=== PATIENT | female | born 1965 | race Caucasian/White ===

== ENCOUNTER 2024-04-02 13:28 | Outpatient (OUT) | payer MEDICARE, MEDICAID, SELFPAY ==
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
== END 2024-04-02 13:29 ==
PROVIDERS: PCP Family Medicine; Visit Provider Anesthesiology Pain Medicine
DX: M25.551 Pain in right hip (principal); M54.50 Low back pain, unspecified
CPT/HCPCS: G0463

== ENCOUNTER 2024-05-14 12:44 | Outpatient (OUT) | payer MEDICARE, MEDICAID, SELFPAY ==
--- NOTE | 2024-05-14 | CONS_ITS ---
CONSULTATION DATE: 05/14/2024 TO: Brooke Elizalde M.D. CHIEF COMPLAINT: Includes severe lower back pain, leg pain. HISTORY: She rates the pain an 8/10 for the constant, sharp in character, burning component. Increased with activities such as standing, walking, performing transitioning maneuvers. She reports she has been having progressive tingling and weakness of her right lower extremity. MEDICATION: She has been on ibuprofen for at least the last six months, 800 mg t.i.d. to q.i.d., and she reports she has had only marginal relief with the same. Other medication includes baclofen 10 mg b.i.d., Zonegran 50 mg at h.s. Her LENY on today?s visit is 56%. She was seen in an emergency room visit for an anxiety issue as well as for evaluation of possible blood clots in the lower extremity. EXAM: Her examination is notable for patient having hypoesthesia along the right L4 dermatome, weakness in the right quadriceps/anterior tibialis, depressed right patella reflex. Straight leg raise was negative. No signs consistent with myelopathy involving the lower extremities. She did have hypoesthesia in a stocking type distribution to the junction of the upper one- third and the lower two-thirds of her calf bilaterally. IMPRESSION: Our impression is patient appears to have chronic pain secondary to spinal stenosis at L3-4. RECOMMENDATIONS: I recommend she increase the Zonegran 50 mg dose, two at bedtime. Proceed with an L3-4 steroid injection for suggested progressive pain as well as weakness to the right lower extremity and numbness. I have asked her continue with baclofen and encouraged her to pursue aquatic therapy. As part of providing excellent, safe, comprehensive care, the following was completed at our patient's visit: 1. A medication reconciliation and review to ensure accurate knowledge of current/active medications, including asking our patients to inform us about any jizc-[id number]-[id number] medications or herbal remedies/nutritional supplements/alternative remedies. 2. A review to specifically ensure our patients have had annual screening for: elevated body mass index (BMI, see intake chart for exact total), tobacco use, screening for depression, and screening for unhealthy alcohol use. When screening is concerning, patients are provided with education and the specific recommendation to discuss the concerning health issue and treatment options with their primary care provider. HELEN
--- OUTSIDE RECORDS SUMMARY | 2024-05-14 12:58 | XMS_ITS | CCD ---
Author Organization [facility] Care Team Providers [employer] Underwriter Name Role Phone VICKIE HART Unavailable Unavailable VICKIE HART Unavailable Unavailable BROOKE ELIZALDE Unavailable Unavailabl Brooke Garcia Attending Unavailable Brooke Elizalde Primary Care Unavailable Brooke Elizalde Primary Care Unavailable Brooke ELIZALDE Primary Care Physician [phone] Julio César Srinivasan Unavailable Alexus Rodriguez Unavailable DR JAZMIN MENDOZA Attending Unavailable KELLY, DR WU Consulting Unavailable KELLY, DR WU Admitting Unavailable Brooke ELIZALDE Admitting Unavailabl e Brooke ELIZALDE Attending Unavailabl e Brooke ELIZALDE Referring Unavailabl e THADDEUSBrooke GARCIA Attending Unavailabl e THADDEUSBrooke GARCIA Attending Unavailabl e THADDEUSBrooke Attending Unavailabl e THADDEUSBrooke GARCIA Attending Unavailabl e THADDEUSBrooke GARCIA Attending Unavailabl e Yessenia Mcdonough Attending Unavailable MD ADSH STAPLETON Admitting Unavailabl MD DASH Leon Attending Unavailabl e THADDEUSBrooke GARCIA Admitting Unavailabl MD DASH Leon Consulting Unavailabl e Brooke ELIZALDE Attending UnavailJean Youngblood Attending Unavailable Jean Huang. Attending Unavailable Jean Huang. Attending Unavailable Brooke ELIZALDE Admitting Unavailabl e THADDEUSBrooke GARCIA Attending Unavailabl e Brooke ELIZALDE Referring Unavailabl EL Rendon Attending Unavailable FRANCISCO J SCOTT Attending Unavailable EL ZARATE Attending Unavailable Brooke ELIZALDE Admitting Unavailabl e THADDEUSBrooke GARCIA Attending Unavailabl e THADDEUSBrooke GARCIA Referring Unavailabl e Allergies Allergy Classification Reported Allergen(s) Allergy Type Date of Onset Reaction(s) Facility (20 sources) Penicillins; Translations: [penicillins] Propensity to adverse reactions (disorder) 3 Eruption (morphologic abnormality) [facility] (20 sources) Etodolac; Translations: [etodolac] Drug Allergy Swelling (finding) [facility] Comment on above: swelling in hands an d feet swelling in hands an d feet (20 sources) predniSONE; Translations: [prednisone] Drug Allergy Spasticity (finding) [facility] (5 sources) Penicillins (Antibiotic) Propensity to adverse reactions [employer] Other (1 source) Etodolac; Translations: [Lodine] Drug Allergy [facility] Medications Current Medications Medication Drug Class(es) Dates Sig (Normalized) Sig (Original) 0.5 ML tirzepatide 10 MG/ML Auto-Injector [Mounjaro] (4 sources) Start: 02-16-2024 inject 5 mg by subcutaneous injection every week Mounjaro 5 mg/0.5 mL subcutaneous solution 5 mg, SubCutaneous, qWeek, # 4 EA, Refills(s) 3, Pharmacy: [facility], 168, cm, 02/16/24 13:13:00 EDT, Height/Length Dosing, 137.2, kg, 02/16/24 13:13:00 EDT, Weight Dosing Start Date: 02/16/24 Status: Ordered acetaminophen 325 mg / HYDROcodone bitartrate 5 mg oral tablet (2 sources) Opioid Agonist Start: 2023 End: 06-08-2023 take 1 tablet by mouth every six hours for pain Vanderbilt 325 mg-5 mg oral tablet 1 tab(s), Oral, q6hr for pain for 3 day(s), 12 tab(s), Refill(s) 0, [facility], 168, cm, 06/05/23 15:25:00 EDT, Height/Length Dosing, 143.3, kg, 06/05/23 15:25:00 EDT, Weight Dosing Start Date: 06/05/23 Stop Date: 06/08/23 Status: Ordered Start: 03-29-2022 End: 04-01-2022 take 1 tablet by mouth every six hours for pain Vanderbilt 325 mg-5 mg oral tablet 1 tab(s), Oral, q6hr for pain for 3 day(s), 10 tab(s), Refill(s) 0, [facility], 170, cm, 03/29/22 10:42:00 EDT, Height/Length Dosing, 127, kg, 03/29/22 10:42:00 EDT, Weight Dosing Start Date: 03/29/22 Stop Date: 04/01/22 Status: Ordered acetaminophen 325 mg / oxyCODONE hydrochloride 5 mg oral tablet (2 sources) Opioid Agonist Start: 05-07-2024 End: 05-10-2024 take 1 tablet by mouth every six hours as needed for pain Percocet 5 mg-325 mg oral tablet 1 tab(s), Oral, q6hr as needed for pain for 3 day(s), 15 tab(s), Refill(s) 0, [facility], 170.1, cm, 05/07/24 4:57:00 EDT, Height/Length Dosing, 140, kg, 05/07/24 4:57:00 EDT, Weight Dosing Start Date: 05/07/24 Stop Date: 05/10/24 Status: Ordered Start: 2023 End: 06-07-2023 take 1 tablet by mouth every six hours for pain acetaminophen-oxycodone 325 mg-5 mg Tab 1 tab(s), Oral, q6hr for pain for 2 day(s), 10 tab(s), Refill(s) 0, [facility], 168, cm, 06/05/23 15:25:00 EDT, Height/Length Dosing, 143.3, kg, 06/05/23 15:25:00 EDT, Weight Dosing Start Date: 06/05/23 Stop Date: 06/07/23 Status: Ordered adalimumab (3 sources) Tumor Necrosis Factor Adolfo Start: 04-17-2019 Humira Injection See Instructions, Every week, provided per Dermatology for psorosis, Refills(s) 0 Start Date: 04/17/19 Status: Ordered Humira Active Albuterol (5 sources) beta2-Adrenergic Agonist Ventoli n HFA Active Anoro Ellipta (5 sources) Anoro Ellipta Ac tive Anoro Ellipta 62.5 mcg-25 mcg inhalation powder (20 sources) Start: 08-04-2023 Anoro Ellipta 62.5 mcg-25 mcg inhalation powder 1 inh, Inhalation, Daily, 1 EA, Refill(s) 12, [facility], 168, cm, 08/04/23 13:13:00 EDT, Height/Length Dosing, 137.9, kg, 08/04/23 13:13:00 EDT, Weight Dosing Start Date: 08/04/23 Status: Ordered Start: 02-09-2021 Anoro Ellipta 62.5 mcg-25 mcg inhalation powder 1 inh, Inhalation, Daily, 1 EA, Refill(s) 12, [facility], 167, cm, 12/02/20 10:32:00 EST, Height/Length Dosing, 132.2, kg, 12/02/20 10:32:00 EST, Weight Dosing Start Date: 02/09/21 Status: Ordered apremilast 30 mg oral tablet (3 sources) Start: 04-06-2022 Otezla 30 mg o ral tablet 60 tab(s), Refills(s) 0 Start Date: 04/06/22 Status: Ordered atorvastatin 40 mg oral tablet (20 sources) HMG-CoA Reductase Inhibitor Start: 08-04-2023 take 1 tablet by mouth once daily atorvastatin 40 mg Tab 40 mg = 1 tab(s), Oral, Daily, # 90 tab(s), Refills(s) 4, Pharmacy: [facility], 168, cm, 08/04/23 13:13:00 EDT, Height/Length Dosing, 137.9, kg, 08/04/23 13:13:00 EDT, Weight Dosing Start Date: 08/04/23 Status: Ordered Start: 11-23-2022 take 1 tablet by mare th once daily atorvastatin 40 mg Tab 40 mg = 1 tab(s), Oral, Daily, # 90 tab(s), Refills(s) 3, Pharmacy: [facility], 168.9, cm, 05/06/22 16:53:00 EDT, Height/Length Dosing, 133, kg, 05/06/22 16:53:00 EDT, Weight Dosing Start Date: 11/23/22 Status: Ordered Start: 06-09-2021 take 1 tablet by mare th once daily atorvastatin 40 mg Tab 40 mg = 1 tab(s), Oral, Daily, # 90 tab(s), Refills(s) 3, Pharmacy: [facility], 168, cm, 06/09/21 13:14:00 EDT, Height/Length Dosing, 133.2, kg, 06/09/21 13:14:00 EDT, Weight Dosing Start Date: 06/09/21 Status: Ordered Lipitor Active betamethasone 0.5 mg/ml / clotrimazole 10 mg/ml topical cream (12 sources) Azole Antifungal, Corticosteroid Start: 12-30-2022 apply 45 g topically every other week betamethasone-clotrimazole Top 0.05%-1% Crm 15 gram See Instructions, 45 gm, Refill(s) 5, Not to be used longer than 2 weeks, [facility], 169, cm, 12/30/22 14:28:00 EST, Height/Length Dosing, 134.6, kg, 12/30/22 14:28:00 EST, Weight Dosing Start Date: 12/30/22 Status: Ordered cephalexin 500 mg oral capsule (1 source) Cephalosporin Antibacterial Start: 2023 End: 06-12-2023 take 1 capsule by mouth every six hours Keflex 500 mg Cap 500 mg = 1 cap(s), Oral, q6hr, X 7 day(s), # 28 cap(s), Refills(s) 0, Pharmacy: [facility], 168, cm, 06/05/23 15:25:00 EDT, Height/Length Dosing, 143.3, kg, 06/05/23 15:25:00 EDT, Weight Dosing Start Date: 06/05/23 Stop Date: 06/12/23 Status: Ordered clindamycin 150 mg oral capsule (4 sources) Lincosamide Antibacterial Start: 10-20-2023 take 2 capsules by mouth three times daily clindamycin 150 mg Cap 300 mg = 2 cap(s), Oral, TID, # 42 cap(s), Refills(s) 0, Pharmacy: [facility], 168, cm, 08/04/23 13:13:00 EDT, Height/Length Dosing, 137.9, kg, 08/04/23 13:13:00 EDT, Weight Dosing Start Date: 10/20/23 Status: Ordered Start: 11-28-2022 End: 12-05-2022 take 1 capsule by mouth every six hours clindamycin 300 mg oral cap 300 mg = 1 cap(s), Oral, q6hr, X 7 day(s), # 28 cap(s), Refills(s) 0, Pharmacy: [facility], 169, cm, 11/28/22 15:42:00 EST, Height/Length Dosing, 130, kg, 11/28/22 15:42:00 EST, Weight Dosing Start Date: 11/28/22 Stop Date: 12/05/22 Status: Ordered doxycycline hyclate 100 mg oral capsule (2 sources) Tetracycline-class Drug Start: 01-27-2023 End: 02-06-2023 take 1 capsule by mouth twice daily doxycycline hyclate 100 mg Cap 100 mg = 1 cap(s), Oral, BID, X 10 day(s), # 20 cap(s), Refills(s) 0, Pharmacy: [facility], 169, cm, 12/30/22 14:28:00 EST, Height/Length Dosing, 134.6, kg, 12/30/22 14:28:00 EST, Weight Dosing Start Date: 01/27/23 Stop Date: 02/06/23 Status: Ordered Start: 03-29-2022 End: 04-05-2022 take 1 tablet by mouth twice daily doxycycline monohydrate 100 mg oral tablet 100 mg = 1 tab(s), Oral, BID, X 7 day(s), # 14 tab(s), Refills(s) 0, Pharmacy: [facility], 170, cm, 03/29/22 10:42:00 EDT, Height/Length Dosing, 127, kg, 03/29/22 10:42:00 EDT, Weight Dosing Start Date: 03/29/22 Stop Date: 04/05/22 Status: Ordered 0.5 ML dulaglutide 9 MG/ML Auto-Injector [TrMedArkive] (20 sources) GLP-1 Receptor Agonist Start: 05-10-2023 inject 4.5 mg by subcutaneous injection every week Trulicity Pen 4.5 mg/0.5 mL subcutaneous solution 4.5 mg, SubCutaneous, qWeek, # 12 EA, Refills(s) 3, Pharmacy: [facility], 168, cm, 04/19/23 13:52:00 EDT, Height/Length Dosing, 143.3, kg, 04/19/23 13:52:00 EDT, Weight Dosing Start Date: 05/10/23 Status: Ordered Start: 12-30-2022 inject 1.5 mg by sub cutaneous injection every week Trulicity Pen 1.5 mg/0.5 mL subcutaneous solution 1.5 mg, SubCutaneous, qWeek, # 13 EA, Refills(s) 3, Pharmacy: [facility], 169, cm, 12/30/22 14:28:00 EST, Height/Length Dosing, 134.6, kg, 12/30/22 14:28:00 EST, Weight Dosing Start Date: 12/30/22 Status: Ordered Start: 12-30-2022 inject 3 mg by subcu taneous injection every week Trulicity Pen 3 mg/0.5 mL subcutaneous solution 3 mg, SubCutaneous, qWeek, # 13 EA, Refills(s) 3, Pharmacy: [facility], 169, cm, 12/30/22 14:28:00 EST, Height/Length Dosing, 134.6, kg, 12/30/22 14:28:00 EST, Weight Dosing Start Date: 12/30/22 Status: Ordered Start: 11-23-2022 inject 4.5 mg by sub cutaneous injection every week Trulicity Pen 4.5 mg/0.5 mL subcutaneous solution 4.5 mg, SubCutaneous, qWeek, # 12 EA, Refills(s) 3, Pharmacy: [facility], 168.9, cm, 05/06/22 16:53:00 EDT, Height/Length Dosing, 133, kg, 05/06/22 16:53:00 EDT, Weight Dosing Start Date: 11/23/22 Status: Ordered Start: 12-21-2021 inject 4.5 mg by sub cutaneous injection every week Trulicity Pen 4.5 mg/0.5 mL subcutaneous solution 4.5 mg, SubCutaneous, qWeek, # 12 EA, Refills(s) 3, Pharmacy: [facility], 168, cm, 12/21/21 14:14:00 EST, Height/Length Dosing, 130, kg, 12/21/21 14:14:00 EST, Weight Dosing Start Date: 12/21/21 Status: Ordered Trulicity Active empagliflozin 10 mg oral tablet (5 sources) Sodium-Glucose Cotransporter 2 Inhibitor Start: 08-04-2023 take 1 tablet by mouth once daily in the morning Jardiance 10 mg oral tablet 10 mg = 1 tab(s), Oral, qAM, # 30 tab(s), Refills(s) 5, Pharmacy: [facility], 168, cm, 08/04/23 13:13:00 EDT, Height/Length Dosing, 137.9, kg, 08/04/23 13:13:00 EDT, Weight Dosing Start Date: 08/04/23 Status: Ordered famotidine 20 mg oral tablet (20 sources) Histamine-2 Receptor Antagonist Start: 05-29-2023 take 1 tablet by mouth twice daily as needed famotidine 20 mg Tab 20 mg = 1 tab(s), Oral, BID, PRN Dyspepsia, # 180 tab(s), Refills(s) 4, Pharmacy: [facility], 168, cm, 04/19/23 13:52:00 EDT, Height/Length Dosing, 143.3, kg, 04/19/23 13:52:00 EDT, Weight Dosing Start Date: 05/29/23 Status: Ordered Start: 11-23-2022 take 1 tablet by mare th twice daily as needed famotidine 20 mg Tab 20 mg = 1 tab(s), Oral, BID, PRN Dyspepsia, # 60 tab(s), Refills(s) 5, Pharmacy: [facility], 168.9, cm, 05/06/22 16:53:00 EDT, Height/Length Dosing, 133, kg, 05/06/22 16:53:00 EDT, Weight Dosing Start Date: 11/23/22 Status: Ordered Start: 06-09-2021 take 1 tablet by mare th twice daily as needed famotidine 20 mg Tab 20 mg = 1 tab(s), Oral, BID, PRN Dyspepsia, # 60 tab(s), Refills(s) 5, Pharmacy: [facility], 168, cm, 06/09/21 13:14:00 EDT, Height/Length Dosing, 133.2, kg, 06/09/21 13:14:00 EDT, Weight Dosing Start Date: 06/09/21 Status: Ordered take 1 tablet by mare th every eight hours Famotidine 20 MG 1 tab(s) Orally tid Active fluconazole 150 mg oral tablet (18 sources) Azole Antifungal Start: 02-16-2024 take 1 tablet by mouth once fluconazole 150 mg Tab 150 mg = 1 tab(s), Oral, Once, # 4 tab(s), Refills(s) 5, Pharmacy: [facility], 168, cm, 02/16/24 13:13:00 EDT, Height/Length Dosing, 137.2, kg, 02/16/24 13:13:00 EDT, Weight Dosing Start Date: 02/16/24 Status: Ordered Start: 12-08-2023 take 1 tablet by mouth once fl uconazole 150 mg Tab 150 mg = 1 tab(s), Oral, Once, # 1 tab(s), Refills(s) 0, Pharmacy: [facility], 168, cm, 11/20/23 13:30:00 EST, Height/Length Dosing, 133.9, kg, 11/20/23 13:30:00 EST, Weight Dosing Start Date: 12/08/23 Status: Ordered Start: 06-01-2021 Diflucan 150 m g Tab 150 mg = 1 tab(s), Oral, Monday, # 4 tab(s), Refills(s) 11, Pharmacy: [facility], 168.9, cm, 05/07/21 12:57:00 EDT, Height/Length Dosing, 133.4, kg, 05/07/21 12:57:00 EDT, Weight Dosing Start Date: 06/01/21 Status: Ordered Diflucan Active furosemide 20 mg oral tablet (20 sources) Loop Diuretic Start: 08-04-2023 take 1 tablet by mouth once daily Lasix 20 mg Tab 20 mg = 1 tab(s), Oral, Daily, # 90 tab(s), Refills(s) 4, Pharmacy: [facility], 168, cm, 08/04/23 13:13:00 EDT, Height/Length Dosing, 137.9, kg, 08/04/23 13:13:00 EDT, Weight Dosing Start Date: 08/04/23 Status: Ordered Start: 11-23-2022 take 1 tablet by mare th once daily Lasix 20 mg Tab 20 mg = 1 tab(s), Oral, Daily, # 90 tab(s), Refills(s) 3, Pharmacy: [facility], 168.9, cm, 05/06/22 16:53:00 EDT, Height/Length Dosing, 133, kg, 05/06/22 16:53:00 EDT, Weight Dosing Start Date: 11/23/22 Status: Ordered Start: 06-09-2021 take 1 tablet by [facility] once daily Lasix 20 mg Tab 20 mg = 1 tab(s), Oral, Daily, # 90 tab(s), Refills(s) 3, Pharmacy: [facility], 168, cm, 06/09/21 13:14:00 EDT, Height/Length Dosing, 133.2, kg, 06/09/21 13:14:00 EDT, Weight Dosing Start Date: 06/09/21 Status: Ordered 1 ml guselkumab 100 mg/ml auto-injector (9 sources) Interleukin-23 Antagonist Start: 08-04-2023 Tremfya One-Press 100 mg/mL subcutaneous solution Refills(s) 0 Start Date: 08/04/23 Status: Ordered hydrocortisone 25 mg/ml topical cream (5 sources) Corticosteroid Start: 12-08-2023 hydrocortisone Top 2.5% Crm 1 marylin, Topical, TID Itching, 30 gm, Refill(s) 1, [facility], 168, cm, 11/20/23 13:30:00 EST, Height/Length Dosing, 133.9, kg, 11/20/23 13:30:00 EST, Weight Dosing Start Date: 12/08/23 Status: Ordered ibuprofen 800 mg oral tablet (20 sources) Nonsteroidal Anti-inflammatory Drug Start: 02-16-2024 take 1 tablet by mouth three times daily as needed for pain ibuprofen 800 mg Tab 800 mg = 1 tab(s), Oral, TID, PRN as needed for pain, # 270 tab(s), Refills(s) 3, Pharmacy: [facility], 168, cm, 02/16/24 13:13:00 EDT, Height/Length Dosing, 137.2, kg, 02/16/24 13:13:00 EDT, Weight Dosing Start Date: 02/16/24 Status: Ordered Start: 03-14-2023 take 1 tablet by mare th three times daily as needed for pain ibuprofen 800 mg Tab 800 mg = 1 tab(s), Oral, TID, PRN as needed for pain, # 270 tab(s), Refills(s) 3, Pharmacy: [facility], 169, cm, 02/17/23 11:00:00 EDT, Height/Length Dosing, 134, kg, 02/17/23 11:00:00 EDT, Weight Dosing Start Date: 03/14/23 Status: Ordered Start: 06-09-2021 take 1 tablet by mare th three times daily as needed for pain ibuprofen 800 mg Tab 800 mg = 1 tab(s), Oral, TID, PRN as needed for pain, # 270 tab(s), Refills(s) 3, Pharmacy: [facility], 168, cm, 06/09/21 13:14:00 EDT, Height/Length Dosing, 133.2, kg, 06/09/21 13:14:00 EDT, Weight Dosing Start Date: 06/09/21 Status: Ordered Ibuprofen PRN Ac tive Ibuprofen Active 3 ml insulin aspart, human 100 unt/ml pen injector (20 sources) Insulin Analog Start: 10-04-2023 NovoLOG FlexPe n 100 units/mL injectable solution 18 unit(s), SubCutaneous, TIDAC, before a meal, # 18 EA, Refills(s) 4, Pharmacy: [facility], 168, cm, 08/04/23 13:13:00 EDT, Height/Length Dosing, 137.9, kg, 08/04/23 13:13:00 EDT, Weight Dosing Start Date: 10/04/23 Status: Ordered Start: 12-30-2022 NovoLOG FlexPe n 100 units/mL injectable solution 18 unit(s), SubCutaneous, TIDAC, before a meal, # 15 EA, Refills(s) 3, Pharmacy: [facility], 169, cm, 12/30/22 14:28:00 EST, Height/Length Dosing, 134.6, kg, 12/30/22 14:28:00 EST, Weight Dosing Start Date: 12/30/22 Status: Ordered Start: 05-06-2022 NovoLOG FlexPe n 100 units/mL injectable solution 18 unit(s), SubCutaneous, TIDAC, before a meal, # 15 EA, Refills(s) 3, Pharmacy: [facility], 168.9, cm, 05/06/22 16:53:00 EDT, Height/Length Dosing, 133, kg, 05/06/22 16:53:00 EDT, Weight Dosing Start Date: 05/06/22 Status: Ordered NovoLOG Active 3 ml insulin detemir 100 unt/ml pen injector (20 sources) Insulin Analog Start: 10-04-2023 Levemir FlexTo uch 100 units/mL subcutaneous solution 48 unit(s), SubCutaneous, Bedtime, # 15 EA, Refills(s) 4, Pharmacy: [facility], 168, cm, 08/04/23 13:13:00 EDT, Height/Length Dosing, 137.9, kg, 08/04/23 13:13:00 EDT, Weight Dosing Start Date: 10/04/23 Status: Ordered Start: 05-23-2023 Levemir FlexTo uch 100 units/mL subcutaneous solution 40 unit(s), SubCutaneous, Bedtime, # 12 EA, Refills(s) 4, Pharmacy: [facility], 168, cm, 04/19/23 13:52:00 EDT, Height/Length Dosing, 143.3, kg, 04/19/23 13:52:00 EDT, Weight Dosing Start Date: 05/23/23 Status: Ordered Start: 05-06-2022 Levemir FlexTo uch 100 units/mL subcutaneous solution 40 unit(s), SubCutaneous, Bedtime, # 12 EA, Refills(s) 3, Pharmacy: [facility], 168.9, cm, 05/06/22 16:53:00 EDT, Height/Length Dosing, 133, kg, 05/06/22 16:53:00 EDT, Weight Dosing Start Date: 05/06/22 Status: Ordered Start: 06-09-2021 Levemir FlexTo uch 100 units/mL subcutaneous solution 35 unit(s), SubCutaneous, Bedtime, # 6 EA, Refills(s) 3, Pharmacy: [facility], 168, cm, 06/09/21 13:14:00 EDT, Height/Length Dosing, 133.2, kg, 06/09/21 13:14:00 EDT, Weight Dosing Start Date: 06/09/21 Status: Ordered Levemir Active 1.5 ml insulin glargine 300 unt/ml pen injector (1 source) Insulin Analog Start: 04-02-2024 Toujeo SoloStar 300 units/mL subcutaneous solution 50 unit(s), SubCutaneous, Daily, # 5 EA, Refills(s) 11, Pharmacy: [facility], 168, cm, 03/28/24 13:20:00 EDT, Height/Length Dosing, 137.2, kg, 03/28/24 13:20:00 EDT, Weight Dosing Start Date: 04/02/24 Status: Ordered 1 ml ixekizumab 80 mg/ml auto-injector (8 sources) Interleukin-17A Antagonist Start: 12-30-2022 Taltz Autoinjector 80 mg/mL subcutaneous solution Refills(s) 0 Start Date: 12/30/22 Status: Ordered Methotrexate (4 sources) Folate Analog Metabolic Inhibitor Methotrexate Active naproxen 500 mg oral tablet (20 sources) Nonsteroidal Anti-inflammatory Drug Start: 04-28-2021 take 1 tablet by mouth twice daily Naprosyn 500 mg Tab 500 mg = 1 tab(s), Oral, BID, # 60 tab(s), Refills(s) 11, Pharmacy: [facility], 168.9, cm, 04/27/21 13:56:00 EDT, Height/Length Dosing, 133.4, kg, 04/27/21 13:56:00 EDT, Weight Dosing Start Date: 04/28/21 Status: Ordered Naproxen Active NovoLOG FlexPen 100 units/mL injectable solution (2 sources) Start: 06-09-2021 NovoLOG FlexPen 100 units/mL injectable solution 18 unit(s), SubCutaneous, TIDAC, before a meal, # 15 EA, Refills(s) 3, Pharmacy: [facility], 168, cm, 06/09/21 13:14:00 EDT, Height/Length Dosing, 133.2, kg, 06/09/21 13:14:00 EDT, Weight Dosing Start Date: 06/09/21 Status: Ordered nystatin 100 unt/mg topical powder (5 sources) Polyene Antifungal Start: 12-08-2023 nystatin Top 100,000 units/g Pwdr 1 marylin, Topical, TID, 60 gm, Refill(s) 0, do for 2 weeks, [facility], 168, cm, 11/20/23 13:30:00 EST, Height/Length Dosing, 133.9, kg, 11/20/23 13:30:00 EST, Weight Dosing Start Date: 12/08/23 Status: Ordered permanent handicap placard (4 sources) Start: 02-16-2024 permanent handicap placard permanent handicap placard, See Instructions, 2 EA, 5, for permanent medical condition, 5 years, needs 2 placards, Supply Start Date: 02/16/24 Status: Ordered Ventolin HFA 90 mcg/inh Aerosol (13 sources) Start: 02-09-2021 take 1 puff(s) by inhalation once for wheezing Ventolin HFA 90 mcg/inh Aerosol 1 puff(s), Inhalation, Once for wheezing, 1 EA, Refill(s) 11, [facility], 167, cm, 12/02/20 10:32:00 EST, Height/Length Dosing, 132.2, kg, 12/02/20 10:32:00 EST, Weight Dosing Start Date: 02/09/21 Status: Ordered vitamin B12 (10 sources) Vitamin B12 Start: 05-01-2019 Vitamin B12 See Instructions, 1 tab Oral off and on, Refills(s) 0, Prophylaxis Start Date: 05/01/19 Status: Ordered Vitamin B12 Acti ve Zinc (20 sources) Start: 04-10-2019 take 50 mg by mouth once daily Zinc 50 mg, Oral, Daily, only during winter months, Refills(s) 0, Prophylaxis Start Date: 04/10/19 Status: Ordered Zinc Active Completed/Discontinued Medications Medication Drug Class(es) Dates Sig (Normalized) Sig (Original) terconazole 4 mg/ml vaginal cream (3 sources) Azole Antifungal Start: 04-06-2022 terconazole 0.4% Vag Crm Refill(s) 0, 45 gm, INSERT 1 APPLICATORFUL VAGINALLY AT BEDTIME FOR 7 DAYS Start Date: 04/06/22 Status: Ordered Problems Active Problems Problem Classification Problem Date Documented Da te Episodic/Chronic Abdominal hernia (20 sources) Incisional hernia; Translations: [Recurrent inguinal hernia] Resolved: 9 01-10-2014 Episodic Abdominal pain (20 sources) Right upper quadrant pain; Translations: [Abdominal wall pain] Onset: 8 Resolved: 9 09-01-2020 Episodic Cancer of cervix (20 sources) Malignant tumor of cervix 11-01-2019 Chronic Cancer of cervix (20 sources) History of malignant neoplasm of cervix 11-11-2019 Episodic Chronic obstructive pulmonary disease and bronchiectasis (20 sources) Chronic obstructive lung disease; Translations: [Chronic obstructive pulmonary disease, unspecified] Onset: 2 11-11-2019 Chronic Diabetes mellitus with complications (20 sources) Neuropathy due to type 2 diabetes mellitus; Translations: [Hyperglycemia due to type 2 diabetes mellitus] Onset: 2 03-10-2021 Chronic Diabetes mellitus without complication (20 sources) Diabetes mellitus; Translations: [Type 2 diabetes mellitus] 11-01-2019 Chronic Comment on above: LInked per outpaiten t [facility] policy. Disorders of lipid metabolism (20 sources) Hypertriglyceridemia; Translations: [Mixed hyperlipidemia] Onset: 2 12-02-2020 Chronic Disorders of teeth and jaw (20 sources) Dental caries; Translations: [Infection of tooth] Onset: 3 03-10-2021 Episodic E Codes: Other specified and classifiable (1 source) Ring or other jewelry causing external constriction, initial encounter; Translations: [Exposure to inanimate mechanical force (finding)] Onset: 4 Episodic Endometriosis (20 sources) Endometriosis (clinical) 01-10-2014 Chronic Esophageal disorders (20 sources) Gastroesophageal reflux disease without esophagitis 12-21-2021 Chronic Glaucoma (20 sources) Open-angle glaucoma - borderline; Translations: [Open-angle glaucoma] 11-11-2019 Chronic Headache; including migraine (20 sources) [place] 11-01-2019 Chronic Hepatitis (4 sources) Nonalcoholic steatohepatitis; Translations: [Nonalcoholic steatohepatitis (DOBBS)] Chronic Immunity disorders (20 sources) Immunosuppression; Translations: [Immunodeficiency disorder] Onset: 4 12-21-2021 Chronic Immunizations and screening for infectious disease (1 source) Encounter for screening for human papillomavirus (HPV); Translations: [ENC SCREENING HUMAN PAPILLOMAVIRUS] Onset: 2 Episodic Menopausal disorders (12 sources) Primary ovarian failure; Translations: [Other primary ovarian failure] Onset: 2 Chronic Mood disorders (20 sources) Depressive disorder; Translations: [Reactive depression (situational)] Onset: 1 Resolved: 3 01-10-2014 Chronic Mycoses (20 sources) Candidiasis of skin; Translations: [Candidiasis of vagina] 05-27-2020 Episodic Other aftercare (2 sources) Long-term current use of insulin; Translations: [correction (current) use of insulin] Onset: 4 Episodic Other and unspecified benign neoplasm (20 sources) History of polyp of colon 04-27-2021 Episodic Other circulatory disease (20 sources) Elevated blood-pressure reading without diagnosis of hypertension 12-02-2020 Episodic Other connective tissue disease (2 sources) Pain in lower limb; Translations: [Pain in leg, unspecified] Onset: 2 Episodic Other connective tissue disease (19 sources) Hand pain; Translations: [Pain in left hand] Onset: 3 Episodic Other connective tissue disease (17 sources) Peripheral neuropathic pain 12-30-2022 Episodic Other connective tissue disease (1 source) Other symptoms and signs involving the musculoskeletal system; Translations: [Other symptoms and signs involving the musculoskeletal system] Onset: 4 Episodic Other female genital disorders (1 source) Other specified noninflammatory disorders of vagina; Translations: [OTH SPEC NONINFLAMMATORY D/O VAGINA] Onset: 2 Episodic Other gastrointestinal disorders (1 source) Ascites; Translations: [Other ascites] Onset: 3 Episodic Other inflammatory condition of skin (20 sources) Psoriasis; Translations: [Psoriasis, unspecified] Onset: 2 12-02-2020 Chronic Other injuries and conditions due to external causes (20 sources) At risk for falls 04-10-2019 Episodic Other liver diseases (4 sources) Steatosis of liver; Translations: [Fatty (change of) liver, not elsewhere classified] Chronic Other lower respiratory disease (20 sources) Dyspnea; Translations: [Dyspnea, unspecified] Onset: 4 09-01-2020 Episodic Other nervous system disorders (20 sources) Chronic pain syndrome 05-27-2020 Chronic Other nervous system disorders (20 sources) 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 Other nervous system disorders (1 source) Mononeuropathy of lower limb; Translations: [Unspecified mononeuropathy of bilateral lower limbs] Onset: 3 Chronic Other nervous system disorders (1 source) Polyneuropathy; Translations: [Polyneuropathy, unspecified] Onset: 4 Chronic Other nervous system disorders (1 source) Anesthesia of skin; Translations: [Anesthesia of skin] Onset: 3 Episodic Other nervous system disorders (17 sources) Numbness of finger 12-30-2022 Episodic Other non-traumatic joint disorders (20 sources) Knee pain 03-10-2021 Episodic Other non-traumatic joint disorders (9 sources) Multiple joint pain 08-04-2023 Episodic Other non-traumatic joint disorders (1 source) Pain of left wrist; Translations: [Pain in left wrist] Onset: 4 Episodic Other non-traumatic joint disorders (7 sources) Pain in wrist 11-20-2023 Episodic Other nutritional; endocrine; and metabolic disorders (20 sources) Body mass index 40+ - severely obese; Translations: [Body mass index (BMI) 45.0-49.9, adult] Onset: 2 04-06-2021 Chronic Other nutritional; endocrine; and metabolic disorders (20 sources) Morbid obesity; Translations: [Morbid (severe) obesity due to excess calories] Onset: 2 12-02-2020 Chronic Other screening for suspected conditions (not mental disorders or infectious disease) (20 sources) Mammography abnormal; Translations: [Other specified abnormal findings of blood chemistry] Onset: 2 Resolved: 2 04-08-2019 Episodic Other skin disorders (1 source) Disorder of skin pigmentation; Translations: [Disorder of pigmentation, unspecified] Onset: 4 Episodic Ovarian cyst (20 sources) Cyst of ovary 01-10-2014 Episodic Paralysis (7 sources) Monoparesis - leg 11-20-2023 Chronic Peripheral and visceral atherosclerosis (11 sources) Abdominal aortic atherosclerosis; Translations: [Atherosclerosis of aorta] Onset: 4 08-04-2023 Chronic Residual codes; unclassified (20 sources) Chronic back pain 01-10-2014 Episodic Residual codes; unclassified (20 sources) Family history of cancer of colon 04-27-2021 Episodic Residual codes; unclassified (20 sources) Family history of polyp of colon 04-27-2021 Episodic Residual codes; unclassified (13 sources) Swelling - edema - symptom 02-26-2020 Episodic Residual codes; unclassified (1 source) Edema; Translations: [Edema, unspecified] Onset: 2 Episodic Residual codes; unclassified (1 source) Patient encounter status; Translations: [Other specified health status] Onset: 3 Episodic Screening and history of mental health and substance abuse codes (20 sources) Tobacco use and exposure - finding; Translations: [Tobacco smoking behavior - finding] 03-10-2021 Chronic Screening and history of mental health and substance abuse codes (9 sources) Ex-smoker; Translations: [H/O: Disorder] Onset: 2 06-09-2021 Episodic Skin and subcutaneous tissue infections (2 sources) Cellulitis; Translations: [Cellulitis of unspecified part of limb] Onset: 2 Episodic Spondylosis; intervertebral disc disorders; other back problems (20 sources) Lumbar spondylosis with myelopathy; Translations: [Other spondylosis with myelopathy, lumbar region] Onset: 2 04-10-2019 Chronic Spondylosis; intervertebral disc disorders; other back problems (16 sources) Lumbar radiculopathy; Translations: [Radiculopathy, lumbar region] Onset: 4 Episodic Unclassified (2 sources) Right upper quadrant pain / R10.11(ICD-9) Onset: 8 Unclassified (20 sources) Drug therapy finding 04-10-2019 Unclassified (20 sources) Liver function test increased 12-21-2021 Unclassified (20 sources) Long-term current use of insulin 04-17-2019 Unclassified (20 sources) Patient encounter status 04-06-2021 Unclassified (2 sources) Suspected disease caused by 2019-nCoV 12-21-2021 Unclassified (17 sources) Non-smoker 12-30-2022 Unclassified (11 sources) Edema of abdomen 02-17-2023 Unclassified (8 sources) Financial insecurity; Translations: [Financial insecurity] Onset: Past or Other Problems Problem Classification Problem Date Documented Date Episodic/Chronic Substance-related disorders (20 sources) Smoker Resolved: 03-20-2015 08-14-2019 Chronic Comment on above: Added secondary to d ocumentation in Social History. Added secondary to d ocumentation in Social History. Unclassified (1 source) Exposure to 2019 novel coronavirus; Translations: [Contact with and (suspected) exposure to COVID19] Unclassified (3 sources) chronic knee pain( Confirmed ) 07-27-2010 Unclassified (19 sources) chronic knee pain 07-27-2010 Results Test Name Value Interpretation Reference Range Facil ity CHEMISTRYOrdered By: SYSTEM SYSTEM on 05-07-2024 Anion gap [Moles/Vol] 11 mmol/L Normal 6 - 16 mEq/L Remisol Chem Calcium [Mass/Vol] 8.3 mg/dL Low 8.9 - 11.1 mg/dL Remisol Chem Chloride [Moles/Vol] 104 mmol/L Normal 101 - 111 mmol/ L Remisol Chem CO2 [Moles/Vol] 25 mmol/L Normal 21 - 31 mmol/L Remis ol Chem Creatinine [Mass/Vol] 0.9 mg/dL Normal 0.5 - 1.3 mg/dL Remisol Chem eGFR 73 mL/min/1.73 m2 Normal >=59mL/min /1.73 m2 Remisol Chem Glucose [Mass/Vol] 130 mg/dL Normal 55 - 199 mg/dL Re misol Chem Potassium [Moles/Vol] 3.6 mmol/L Normal 3.5 - 5.3 mmol/L Remisol Chem Sodium [Moles/Vol] 136 mmol/L Normal 135 - 145 mmol/L Remisol Chem Troponin HS 4.00 pg/mL Low 10.10 - 27.10 pg/mL Remisol Chem Comment on above: Interpretive Data: T he 95% CI (Confidence Interval) PPV (Positive Predictive Value) for myocardial infarction in females is 38 pg/mL, in males 51 pg/mL. The results should be used in conjunction with clinical conditions of myocardial infarction. (Access High Sensitivity Troponin I Instructions For Use, [place], May 2018) Urea nitrogen [Mass/Vol] 13 mg/dL Normal 5 - 21 mg/dL Remisol Chem Urea nitrogen/Creatinine [Mass ratio] 14 mg/mg Normal 10 - 20 Remisol Chem CHEMISTRYOrdered By: Abdulkadir De La Torre on 05-07-2024 Natriuretic peptide B (Bld) [Mass/Vol] 24 pg/mL Normal 5 - 80 pg/mL [facility] HemeManSS HEMATOLOGYOrdered By: SYSTEM SYSTEM on 05-07-2024 Basophils/100 WBC (Bld) 0.7 % Normal 0.0 - 2.0 % Remisol Heme Basophils/Leukocytes Auto (Bld) [Pure # fraction] 0.1 E9/L Normal 0.0 - 0.2 E9/L Remisol Heme Eosinophils (Bld) [#/Vol] 0.1 E9/L Normal 0.0 - 0.5 E9/L Remisol Heme Eosinophils/100 WBC (Bld) 1.7 % Normal 0.0 - 8.0 % Remisol Heme Erythrocyte distribution width (RBC) [Ratio] 14.9 % High 10.9 - 14.2 % Remisol Heme Hematocrit (Bld) [Volume fraction] 33.6 % Low 34.0 - 46.0 % Remisol Heme Hemoglobin (Bld) [Mass/Vol] 11.7 g/dL Low 12.0 - 16.0 gm/dL Remisol Heme Lymphocytes (Bld) [#/Vol] 1.2 E9/L Normal 1.0 - 4.0 E9/L Remisol Heme Lymphocytes/100 WBC (Bld) 14.1 % Normal 14.0 - 50.0 % Remisol Heme MCH (RBC) [Entitic mass] 31.0 pg Normal 27.0 - 34.0 pg Remisol Heme MCHC (RBC) [Mass/Vol] 34.9 g/dL Normal 31.4 - 36.0 gm/dL Remisol Heme MCV (RBC) [Entitic vol] 89.0 fL Normal 80.0 - 100.0 fL Remisol Heme Monocytes (Bld) [#/Vol] 0.6 E9/L Normal 0.2 - 1.0 E9/L Remisol Heme Monocytes/100 WBC (Bld) 6.7 % Normal 4.0 - 14.0 % Remisol Heme Neutrophils (Bld) [#/Vol] 6.3 E9/L Normal 2.0 - 7.5 E9/L Remisol Heme Neutrophils/100 WBC (Bld) 76.8 % High 36.0 - 75.0 % Remisol Heme Platelet 292.0 E9/L Normal 150.0 - 500.0 E9/L Remisol Heme Platelet mean volume (Bld) [Entitic vol] 9.0 fL Normal 6.4 - 10.8 fL Remisol Heme RBC (Bld) [#/Vol] 3.8 E12/L Low 4.3 - 5.9 E12/L Re misol Heme WBC corrected for nucl RBC Auto (Bld) [#/Vol] 8.2 E9/L Normal 4.0 - 11.0 E9/L Remisol Heme Coding Summary.on 04-23-2024 Coding Summary. FHCRXnhq61ORs3cWq+PG hlY WQ+KO5QXQNtZ05vnAWqwW2v X0CJYDkMOhnsGXVIPKgHNpI wqtZvMO9krFSuGNCb IC8+WW7eTMPtNwytpSZrq8K 8jWZ1P52zua3tYEdceAX3EB KsFwGxlglat4nxcQz1RUztF mluOyBt KNDjgB79BHO6zH54Dl56iJP ziBFhc7ryjQa8SvVwZEMuEQ N3rNblOLxhd9QcJPIrM72fk EWwf0O8 IUWsyJvrcDRqAaUqmSR3zM0 jABdyoxapn4hzqfxaJka5ww 13hQXsy1E1nDN9E2XomqR4L GJvbGQg WkqjnKGPcG3yiwetz2atxif qNmJeZYSvUFe7LIz9RVPxgU rjBmSwNI13JKU1QXUavfXpD 2FsLWFs hQaiUfJ8k6T8Vt2HP0YRKfz mH2PFGXFGUQybmQZ+PC90cj 34H4OaFntbCft5LLUgCZV4r TE4xZ1w RWQyGDgqx4N9fRT1U4LnzeT xwk7rk7aiBADzRZfhB52ofQ Bpv7P0RQCffOR3EQHzpQjrA iBzaG93 Oyc+MHKdsJfps2CdGgmme1d nb4cdkTm7SdrrQNWadiBtwO vkUUN3g5ZfMh7xFRWooRO7y JI1dU1h LkEaDoQ0OCmfZ543SiBizWN lTwzzZ18hV7AicHA+PHRyPj f7ZLKloFqnMW0iB3YpXVTkh mctbGVm vFcmFT7tQEYozjgzYJFdeP0 xPTCnJ4j6ZcTqEdI4AJzoM5 IrRTHnfandRv45xO1mNqBbT bC9GKof T7KuapN5TGAogIPmDHwwWIZ 7X97qh1Q6CIOfAAOmOOE0kI O6hP1xfFafksaqoIUjgBuhq mVydGlj WKhxAKzrC497KRWdyXouYlR vZGluZyBEYXRlOiAgMDYvMj UvMjAyNDwvdGQ+VGPrCEC1z WxlPSAn xTArUObuGz4ftWimqPenMZ0 cGLDicdftUJQbbZ6kZWNobB RacJvyDD7hHHHcevqwn684B iAxMHB0 JIPizCYxC9SnmT6uMtYiXQZ jWINlM9EsfYXaQAxxH648IW loUhJ8QHEzivJaT7RwPTYvj WduOiB0 q3M4Ug6Bx1PcpannQ4EyhKL hWiScJqrdFXs6B0MuKqtwwK I+CB83OHFyLZ46GYa8HXZ2g WxlPSdi ORWwK5WpqL8iHmMjYAMcMAN kOyc+PHRhYmxlIHdpZHRoPS tjWTNtQoDkbEwdJK2gNz4zS GVyLWNv qHlsoQDcUpJqj7yyRFZpINv hNT0ixAjmQ8PtmJG9CLOcv5 j0Iq95G41cZ5AvgTZ+PGNvb KX3uLN0 yT5gCeRcWuX0CDfkD713ZmZ srNCkPofqb2yoc8qxePh4Ht F7GEVoyjXmeOpnWMV4q3DpG e17G99i IHdpZHRoPSIxNSUiIHZhbGl mjb4khF3sKd1+DBWdeUQ9jB Q5dL2xGtMxKwV3NXmhQ651R nRvcCIv Tqfda2nua5txpAp7AvJpNJJ amzOgjThyOKO6b3CpBd07T0 XgtJiwo7DpGod9cu21eZZyj 1P8gAH6 U0UuKKWrwavoxNHyrDgbJD4 vIZAguxwhWQWqoR2bMWDlJ6 w7IyGvJrF1IBwkH6FjvvJ8S GJvbGQg TAYewJBJfL0caiifr7tunro oZlRjNSArMEa7PFi0CMLlvR epUoShLXF7KoI3ROB9zDSxb J0ieCib xdjtlF1rXdr+UDV8hIPihIK PED6zFmxguDR+XYVkIKX7xK diUUvmERIqoJ3aPODmT1a9L iAwLjA1 AUhmH7MxbnF3WDSdsJZsAQO qiZKOdW8kluybb3hfqjsjIt AvEWXaIKi1DZm2GVHbiFyrK iBsZWZ0 ZmT2SOW6nVNerA2qeAqavsx lzL0kDwn+ZttfmCqwJSX2AY r4N2VyLej8AJVrrCoyTN3yd GFkZGlu Se8uoQrbiVqeAG6aOYDcbjj kq280OvEgo1wiLIHdhYDwXU mdWVX2L32pp4R9WNEhMATjY EK6aFC9 iS6asEvlpmcmpGTaeLzxxvU jpRkiNCipVRdqA674MYYtcX jwAtDzJUh0K7CmLbh1RVYpp HjaPA2k lXGdJJsoRq0vkHgmqMauDW9 wGMHhqnwat079HlJpg4tiJO AkhYKlWSznYQL2V40td2W2I CMwMDAw KHU2mHI5vE9pwCmsdzazmTE mdDsgdmVydGljYWwtYWxpZ2 81XARunBgbIlLnwAf6M0XsT wl7ZAXu jAbsHH9luAZyOWmpAl9akRm eyZirQQ4dQYGoabgdd672Eb Apd9kfBSDirIWvZRnbZIN2W 91zj4N3 CQScYFNdIQW1fNG2oE2uzGg nbjogbGVmdDsgdmVydGljYW ddMUuaZ701AZGmkZtrTeSut GllbnQg CCfvMBr4Y7EcTmqhlTM+PC9 3BVFvWL15pRXifCOxo1cslG p0WwKmDSLmUQV3bZjxAHvlj 3JkZXIt X73giOIwr5Z6MJQzvAjrkAJ aLxXlgFN4mE1yIIjuhirjf5 gufjbmZdaag6gkrt08fX59N 29sIHdp ZHRoPSIzMCUiIHZhbGlnbj0 oxI9zUp8+AERwlRJ3uSZ3iM 1dJMMwPyA4ZHebG162DdHjd CIvPjxj z7vrj1llyDn1WbB1ACKkhgZ mkEbeVBV0u6OaVt48I45uUI dpZHRoPSIyMCUiIHZhbGlnb z2yfC3q Ii8+JWBiwTS7eFE1qH6yNcX bAbP5WLucA711SgZpzNRjJo maH59pI4YikKP+KJDyPtz2O CBzdHls YT8nnZCbWHwbCr0aAFQ4TmG sMqUdKFvwA0SjAACbedrdwi acwIR9EFPxKQFshW49In6nh DogMTBw qGWEoV9qkkjkg0skbseiKiA nFWMyADd8JYv3JUAxwUysKo ToEHQ2WvH9JBR8hGWzrB0ml Glnbjog wG7gK0QaGXKayrcwAb72bU3 yFcQyJbJ0GUliTmw+Q1JPU1 RfELOZL2wAKa3DQTviVZ9MS SBCPC90 PO97pCJiw7J2zCI3N4SrVHC jntdwjgkyvJB9LCRbQYEtnO 88xZSwVXcnAt0zb9Z0t196R DAuMDUw uQ76Ra0toBakYPQzcXOLfO9 kylxzi6rgwxeqPvSjBFYtYA x9NWh2UUWmpFxuArFeNHE4H hQ3JHJ0 hEYsuB8zlPjkotdbpF8vEvq +OMfoZEziGUr4KBgodMA+PH TcVUC0pHtbNNruOCYlqN9tA AQzM9t1 MgGgJnF1IEeaI3OoTFLyjoo hKs67tR9dTgOxIoR6TVmiQ4 OndmP8VHAvfRZcFTpeRJJ7Q 34eb1W8 KBPaPYTiJEJ0lVC2jW0ikEv nbjogbGVmdDsgdmVydGljYW qfXGogH083OGUnfJdnAdZ7J FllYXJz VY02QS07gKRyd8Y2mCB2K4O kODIrkaetznyzlGC4YHOmWB MzkD84iVEmNAhnXu5fn1E0f 206IDAu CSNwnZ30Jo5ftSvhSZTffPJ CuT4qtazfa0tcutojKzUmXO PlWBn7IDm4JAPjlNulTaSlA MS3FqS5 QFZ7iHMwbE7vzSbvdherdU5 wOyc+KuAdVClzRH81FU19pO Wlg8X5wCT2E1QbMGUiaccwm mlnaHQ6 FCApUQPeaD58wEFbQTylOc9 ui0X9p771SOMsEJRdaY18Bc 3uhOitPPBnmDTCnE9kmulao 2xvcjog OwBgWFEmSUw3PAj5YUIlmRd nVjGmFFU9IgN6JRI3dEOnxP 5grOggardvlL9tVwm+T3V0c MY1xPBb dDwvdGQ+VK33jh91B3UsGbe uAbz4QBZwCNC7qCN7kS9oKD CcJPhbf8Y4zRZ3A9TebqDpv x8xk4tg GCKrNWqdS71shWXlp6D0EGL lkOE8JSDcbVyxUlOtfT20Fq c+DCYtgTjgc8EcBprlx0ber 0aahKq5 HrMkUJHngcLrcGywOBC2q8L yLt80U46jGOasSKPfUSPdUS IyCEAvdYohow7buY6yWv7+P GNvbCB3 lJJ4nT2bEwGlQyW5JKdgE19 8CbItpDIuFsofn9hge7srkS d7ZkWoJTVygwQzkSwrEUX2d 8AhJh76 C6SfqJfvc2IpJtm0vi84fCD xg7Q8fGW9T1FqSNUameoesH KegZmfTZ9iMQRkkmfbLHKua E9bDZHq E7f6McDzHyB1IHfpH8ZcshP 9VVFnuBJeKVOxjHQOxI6qky arm2kfubbtLmJmFYCiHVg3G Un8DFHx bBmdJrNuLPF9SgV1BXP5eXP wbN0weWsxpjesaI8tAup+UG i0c1byaHFaHQ8rtQE7BA47Y Y48eMMq w4K8jSE6A0HxFGMlxaliogp rrXK9YRKjBKOwmE79Fd0esX mrAs7eMXNnNYC3SOUotOZqA 7MzbL0i XiXkLGPoQIPrB2JfeZPeCVl zO256DGqsDjZ9QCZnlfGdS0 RrCRQzyPefIqK2u6H4Kk8BH A82GF54 GX86rJYhm6Y0tTP6L0XsDZC swbakiwwybHZ4SAEqIUIoxV 82Ho8hdYijLl9kPGPcGUD4G FRpbWVz J5VjzA8tQzEcYWVqHAPlQ7M fsCYyKMsyJ919HYpnTzW8XX UjmdOhO2FpOXMsyXqgZaZ4o 6D7Mw2Z Eg06UY27PE89lUSnb9O7sIU 2P9XeXEOjdcxtfhoycYA9YW MoVKHquL36Rm1lhUadIg2fW CAxMHB0 HUVfwZElM2BliY1cRiYjDHT kQKPjZ0GxqVFmDXvnN505MU ryYnZ8OKWfzaDrJ5CvSSTmy WduOiB0 s2L5Yz1WHTbinvo2L1NcAjy vdHI+QG03GCHaMV12rUAzvJ Jyj4cegHx6TpWcQCYoCNM4l WxlPSdi e0MyHRFvQ69sc (more content not included)... Normal [facility] - Clinical Noteon Retail - Clinical Note [id number]#[id number] IFF Normal [facility] CT Chest, Low Dose Screening on 04-02-2024 CT Chest, Low Dose Screening Exam Date/Time: 03/28/2024 12:58 EDT Reason for Exam: [id number];Screening Report IMPRESSION: LUNG RADS CATEGORY 2, BENIGN APPEARANCE OR BEHAVIOR. CONTINUE ANNUAL SCREENING WITH LOW DOSE CT IN 12 MONTHS. CLINICAL HISTORY: Screening, Z87.891 COMPARISON: 01/10/2023. COMMENT: Unenhanced images were obtained per the low dose screening protocol. There is calcification at the aortic arch. The thoracic aorta is normal in diameter, without evidence of aneurysm. No coronary artery calcification is delineated on this study. The heart is normal size. No pericardial effusion is noted. There are small nonspecific mediastinal lymph nodes, including a few small lymph nodes with granulomatous calcification. No mediastinal nor hilar lymphadenopathy is noted. There is a 2 to 3 mm noncalcified nodule in the right middle lobe medially, that is stable in appearance. No new lung nodule is noted. No infiltration, no lung mass, nor pleural effusion is evident. All CT scans at this facility use dose modulation, iterative reconstruction, and/or weight based dosing when appropriate to reduce radiation dose to as low as reasonably achievable. Ordering Provider: Brooke ELIZALDE FINAL REPORT Dictated: 04/02/2024 2:35 pm Luis Manuel Abernathy M.D. Signed (Electronic Signature): 04/02/2024 2:35 pm Signed by: Luis Manuel Abernathy M.D. Transcribed by: PREMA Technologist: OMID [facility] CHEMISTRYOrdered By: SYSTEM SYSTEM on 03-28-2024 Albumin DL <= 20 mg/L (U) [Mass/Vol] 5.0 mg/dL High 0.0 - 1.9 mg/dL Remisol Chem Protein/Creatinine (U) [Ratio] 25.30 mg/gm Cr Normal 0.00 - 200.00 mg/gm Cr Remisol Chem U Creatinine 47.8 mg/dL Invalid Interpretation Code Remisol Chem Ur Total Protein 12.1 mg/dL Invalid Interpretation Code Remisol Chem CHEMISTRYOrdered By: Gia Ventura on 03-28-2024 HbA1c (Bld) [Mass fraction] 9.0 % High <=5.9% [facility] ChemAutoSS Consent for Treatmenton 03-01 Consent for Treatment [id number]#1.00T IFF Normal [facility] Consent for Treatment [id number]#1.00T IFF Normal [facility] Discharge Instructionson Discharge Instructions [id number]#1.00T IFF Normal [facility] ED Clinical Summaryon 2023 ED Clinical Summary (Inserted Image. Anika ble to display) [address] [address] ED Clinical Summary Person Information Name: TAMRA GRIDER [place] Age: 58 Years : 1965 Sex: Female Language: Malaysian PCP: Brooke ELIZALDE MD Marital Status: Visit Id: Visit Reason: Finger pain-swelling; LEFT RING FINGER SWELLING Speciality: Acuity: 5 Enc Type: Emergency Med Service: Emergency Arrival: 03/28/2024 13:10:41 Discharge: 03/28/2024 13:49:43 LOS: 000 00:39 Checkin: 03/28/2024 13:10:41 Checkout: 03/28/2024 13:49:43 Dispo Type: Home (Routine DC) EVENTS: Event Name Event Status Request Date/Time Start Date/Time Complete Date/Time Arrive Complete 03/28/2024 13:10:41 03/28/2024 13:10:41 03/28/2024 13:10:41 Document Home Meds Request 03/28/2024 13:10:41 Triage Complete 03/28/2024 13:10:41 03/28/2024 13:20:29 03/28/2024 13:20:29 Bed Assign Complete 03/28/2024 13:13:05 03/28/2024 13:13:05 03/28/2024 13:13:05 Dr Exam Complete 03/28/2024 13:13:05 03/28/2024 13:22:00 03/28/2024 13:22:00 RN Exam Complete 03/28/2024 13:13:05 03/28/2024 13:43:08 03/28/2024 13:43:08 Registration Complete 03/28/2024 13:22:00 03/28/2024 13:45:23 03/28/2024 13:45:23 Discharge Complete 03/28/2024 13:33:31 03/28/2024 13:50:06 03/28/2024 13:50:06 Reg Complete Request 03/28/2024 13:45:23 Reg Bed Request Complete 03/28/2024 13:45:23 03/28/2024 13:45:23 03/28/2024 13:45:23 Transfer Complete 03/28/2024 13:50:06 03/28/2024 13:50:06 03/28/2024 13:50:06 ADDRESS: [address] [id number] PHYS DOC NOTES: MEDICAL INFORMATION: Prescriptions Given: Medications to Continue with No Changes Other Medications atorvastatin (atorvastatin 40 mg Tab) 1 Tablets By Mouth every day. Refills: 4. dulaglutide (Trulicity Pen 4.5 mg/0.5 mL subcutaneous solution) 4.5 Milligram Subcutaneous every week. Refills: 3. famotidine (famotidine 20 mg Tab) 1 Tablets By Mouth 2 times a day as needed Dyspepsia. Refills: 4. fluconazole (fluconazole 150 mg Tab) 1 Tablets By Mouth Once. Refills: 5. furosemide (Lasix 20 mg Tab) 1 Tablets By Mouth every day. Refills: 4. guselkumab (Tremfya One-Press 100 mg/mL subcutaneous solution) hydrocortisone topical (hydrocortisone Top 2.5% Crm) 1 Application Topical 3 times a day as needed Itching. Refills: 1. ibuprofen (ibuprofen 800 mg Tab) 1 Tablets By Mouth 3 times a day as needed as needed for pain. Refills: 3. insulin aspart (NovoLOG FlexPen 100 units/mL injectable solution) 18 Units Subcutaneous before meals. before a meal. Refills: 4. insulin detemir (Levemir FlexTouch 100 units/mL subcutaneous solution) 48 Units Subcutaneous at bedtime. Refills: 4. Misc Prescription (lancets) test daily E11.65. Refills: 4. Misc Prescription (pen needles 6mm, 31 g) injects qid. and weekly for trulicity, needs 125 per month or 375 per 3months dx E11.65. Refills: 4. Misc Prescription (permanent handicap placard) for permanent medical condition, 5 years, needs 2 placards. Refills: 5. Misc Prescription (Test Strips) test daily E11.65. Refills: 3. nystatin topical (nystatin Top 100,000 units/g Pwdr) 1 Application Topical 3 times a day. do for 2 weeks. Refills: 0. tirzepatide (Mounjaro 5 mg/0.5 mL subcutaneous solution) 5 Milligram Subcutaneous every week. Refills: 3. umeclidinium-vilanterol (Anoro Ellipta 62.5 mcg-25 mcg inhalation powder) 1 Inhalation Inhalation every day. Refills: 12. zinc sulfate (Zinc) 50 Milligram By Mouth every day. only during winter months. PATIENT EDUCATION INFORMATION: Instructions: Medical Screening Exam Follow up: With: Address: When: Brooke ELIZALDE [address] [place] [id number] Business (1) In 3 days 03/31/2024 Comments: Call the office of your primary care doctor to arrange for follow-up within the above-stated timeframe. Follow-up with your primary care doctor about this ED visit. You should review your labs, imaging, and diagnoses from this ED visit with your primary care physician. There are occasionally non-emergent findings that require additional follow-up after your ED visit. If you were prescribed medications you should discuss possible side-effects and drug interactions with your pharmacist. Call 911 or go to the nearest Emergency Department if you develop any new or worsening symptoms. DIAGNOSIS: Ring or other jewelry causing external constriction, initial encounter [facility] ED Note-Physicianon 03-28-20 ED Note-Physician Basic Information Time Seen: Jean Huang DO 03/28/2024 13:22 Chief Complaint wants ring cut off. finger swelling History of Present Illness 58-year-old female to the emergency department chief complaint of finger swelling. Patient reports she has had a ring on her fourth digit on the left hand for a few weeks and has been increasing swelling. She reports she gets intermittent numbness and tingling in the finger. She wants it cut off. Review of Systems Pertinent positives and negatives as above. Physical Exam Vitals & Measurements T: 37 ?C(Oral) HR: 100(Peripheral) RR: 18 BP: 189/91 SpO2: 98% HT: 168 cm WT: 137.2 kg BMI: 48.61 VITALS: I have reviewed the triage vital signs. GENERAL: Well developed, well appearing adult in no acute distress. Left Hand: Ring constricting the left digit. Similar color and temperature to the other digits. SKIN: Warm and dry. Normal turgor. No rash or lesions appreciated. PSYCH: Mood, affect, and interaction is appropriate to the setting. Medical Decision Making Ring easily removed with ring cutter. No complication. Patient tolerated procedure well. Patient was discharged home. Assessment/Plan Ring or other jewelry causing external constriction, initial encounter (W49.04XA: Ring or other jewelry causing external constriction, initial encounter) Disposition Plan Patient Discharge Condition Stable Home Discharge Prescription List Prescriptions No active prescription medications Follow-up With When Contact Information Brooke ELIZALDE In 3 days 03/31/2024 EDT 24 [facility] [place] [phone] Business (1) Additional Instructions: Call the office of your primary care doctor to arrange for follow-up within the above-stated timeframe. Follow-up with your primary care doctor about this ED visit. You should review your labs, imaging, and diagnoses from this ED visit with your primary care physician. There are occasionally non-emergent findings that require additional follow-up after your ED visit. If you were prescribed medications you should discuss possible side-effects and drug interactions with your pharmacist. Call 911 or go to the nearest Emergency Department if you develop any new or worsening symptoms. Patient Education Medical Screening Exam Problem List/Past Medical History Ongoing Atherosclerosis of abdominal aorta Bilateral hand pain Chronic pain syndrome COPD mixed type Dental caries Diabetes type 2, uncontrolled Diabetic neuropathy Edema of abdomen Elevated liver function tests Family hx colonic polyps Family hx of colon cancer Financial insecurity High risk medication use History of cigarette smoking Hx of cervical cancer Hypertriglyceridemia Immunosuppression Knee pain Left wrist pain Long-term insulin use Lumbar radiculopathy Lumbar spondylosis with myelopathy Mixed hyperlipidemia Morbid obesity due to excess calories Neuropathic pain, leg, bilateral Neuropathy, ilioinguinal nerve Non-smoker Numbness of fingers of both hands Open angle with borderline findings, low risk, bilateral Open-angle glaucoma of both eyes Periodontal disease Personal history of colonic polyps Polyarthralgia Psoriasis Right leg weakness Right lower quadrant abdominal pain Right upper quadrant pain Screening mammogram, encounter for Spinal stenosis Type 2 diabetes mellitus with hypertriglyceridemia Vaginal candidiasis Historical Abdominal wall pain At risk for falls Body mass index 45.0-49.9, adult Cervical cancer Chronic back pain chronic knee pain Controlled type 2 diabetes mellitus with diabetic neuropathy, with long-term current use of insulin Depression Diabetes mellitus Elevated BP without diagnosis of hypertension Endometriosis GERD without esophagitis History of smoking hysterectomy Incisional hernia Infected tooth Major depressive disorder, recurrent, moderate Migraine Moderate recurrent major depression Ovarian cyst Pain, dental Recurrent inguinal hernia Repair of ventral hernia RLQ abdominal pain Shortness of breath Situational depression Smoker Type 2 diabetes mellitus with hyperlipidemia Ventral hernia Procedure/Surgical History Colonoscopy (05/07/2021), Colonoscopy (05/07/2021), Colonoscopy (05/10/2016), Laparotomy (2014), Hernia repair (2011), Appendectomy;., History of total hysterectomy, MULTIPLE HERNIA REPAIRS. Medications Inpatient No active inpatient medications Home Anoro Ellipta 62.5 mcg-25 mcg inhalation powder, 1 inh, Inhalation, Daily, 12 refills atorvastatin 40 mg Tab, 40 mg= 1 tab(s), Oral, Daily, 4 refills famotidine 20 mg Tab, 20 mg= 1 tab(s), Oral, BID, PRN, 4 refills, Not taking fluconazole 150 mg Tab, 150 mg= 1 tab(s), Oral, Once, 5 refills hydrocortisone Top 2.5% Crm, 1 marylin, Topical, TID, PRN, 1 refills ibuprofen 800 mg Tab, 800 mg= 1 tab(s), Oral, TID, PRN, 3 refills lancets, S (more content not included)... [facility] Comment on above: Result Comment: Elec tronically Signed By: Jean Huang DO\.br\Date and Time Signed: 03/28/24 17:59 EDT ED Patient Education Noteon 03-28-2024 ED Patient Education Note Emergency Medicine Medical Screening Exam A medical screening exam (MSE) helps to determine whether you need immediate medical treatment relating to any number of symptoms you are having. This type of exam may be done in an emergency department, an urgent care setting, or your health care provider's office. Depending on your symptoms and severity, you may need additional tests or medical therapy. It is important to note that an MSE does not necessarily mean that you will need or receive further medical testing or interventions if your symptoms are not deemed to be medically urgent (emergent). Tell a health care provider about: ? Any allergies you have. ? All medicines you are taking, including vitamins, herbs, eye drops, creams, and aksq-qol-tdwqvtc medicines. ? Any problems you or family members have had with anesthetic medicines. ? Any bleeding problems you have. ? Any surgeries you have had. ? Any medical conditions you have. ? Whether you are or may be . What happens during the test? During the exam, a health care provider does a short, often focused, physical exam and asks about your medical history to assess: ? Your current symptoms. ? Your overall health. ? Your need for possible further medical intervention. What can I expect after the test? If you have a regular health care provider, make an appointment for a follow-up visit with him or her. If you do not have a regular health care provider, ask about resources in your community. Your medical screening exam may determine that: ? You do not need emergency treatment at this time. ? You need treatment right away. ? You need to be transferred to another medical center. This may happen if you need an emergent specialist or data power consultant that is not available at the medical center you are at. ? You need to have more tests. A emergency medical service coordinator may be consulted if needed. Get help right away if: ? Your condition gets worse. ? You develop new or troubling symptoms before you see your health care provider. These symptoms may represent a serious problem that is an emergency. Do not wait to see if the symptoms will go away. Get medical help right away. Call your local emergency services (911 in the [place] Do not drive yourself to the hospital. Summary ? A medical screening exam helps to determine whether you need medical treatment right away. This type of exam may be done in an emergency department, an urgent care setting, or your health care provider's office. ? During the exam, a health care provider does a short physical exam and asks about your current symptoms and overall health. ? Depending on the exam, more tests or therapies may be ordered. However, an MSE does not necessarily mean that you will have further medical testing if your symptoms are not deemed to be urgent. ? If you need further care that is not offered at your current medical center, you may need to be transferred to another facility. This information is not intended to replace advice given to you by your health care provider. Make sure you discuss any questions you have with your health care provider. Document Revised: 06/29/2022 Document Reviewed: 02/24/2022 [employer] Patient Education ? 2022 [employer]. [facility] ED Patient Summaryon 024 ED Patient Summary (Inserted Image. Anika ble to display) [address] [address] Patient Discharge Instructions Person Information Name: TAMRA GRIDER Age: 58 Years Arrival Date: 03/28/2024 13:10:41 Discharge Diagnosis: Ring or other jewelry causing external constriction, initial encounter Primary Care Physician: THADDEUS DEUTSCH, Brooke Mccray Provider Information Primary Provider: Jean Huang DO Advanced Verify Rep:None The exam and treatment you received in the Emergency Department were for an urgent problem and are not intended as complete care. It is important that you follow up with a doctor, nurse practitioner, or physician?s manufacturing assistant for ongoing care. If your symptoms become worse or you do not improve as expected and you are unable to reach your usual health care provider, you should return to the Emergency Department. We are available 24 hours a day. TAMRA GRIDER has been given the following list of patient education materials, prescriptions and follow-up instructions: Follow-up Instructions: With: Address: When: Brooke ELIZALDE [address] [place] [id number] Business (1) In 3 days 03/31/2024 Comments: Call the office of your primary care doctor to arrange for follow-up within the above-stated timeframe. Follow-up with your primary care doctor about this ED visit. You should review your labs, imaging, and diagnoses from this ED visit with your primary care physician. There are occasionally non-emergent findings that require additional follow-up after your ED visit. If you were prescribed medications you should discuss possible side-effects and drug interactions with your pharmacist. Call 911 or go to the nearest Emergency Department if you develop any new or worsening symptoms. In the event that this physician does not participate in your insurance network, please consult with your insurance company to find a nearby participating provider. Patient Education Materials: Medical Screening Exam A MESSAGE TO ALL PATIENTS REGARDING OPIOIDS PRESCRIPTION OPIOIDS: WHAT YOU NEED TO KNOW Prescription opioids can be used to help relieve cormtyuj-ob-jorxqp pain and are often prescribed following a surgery or injury, or for certain health conditions. These medications can be an important part of the treatment but also come with serious risks. It is important to work with your healthcare provider to make sure you are getting the safest, most effective care. WHAT ARE THE RISKS AND SIDE EFFECTS OF OPIOID USE? Prescription opioids carry serious risks of addiction and overdose, especially with prolonged use. An opioid overdose, often marked by slowed breathing, can cause sudden . The use of prescription opioids can have a number of side effects as well, even when taken as directed: ? Tolerance?meaning you might need to take more of the medication for the same pain relief ? Physical dependence?meaning you have symptoms of withdrawal when a medication is stopped ? Increased sensitivity to pain ? Constipation ? Nausea, vomiting, and dry mouth ? Sleepiness and dizziness ? Confusion ? Depression ? Low levels of testosterone that can result in lower sex drive, energy, and strength ? Itching and sweating RISKS ARE GREATER WITH: ? History of drug misuse, substance use disorder, or overdose ? Mental health conditions (such as depression or anxiety) ? Sleep apnea ? Older age (65 years and older) ? Avoid alcohol while taking prescription opioids. Also, unless specifically advised by your health care provider, medications to avoid include: ? Benzodiazepines (such as Xanax or Valium) ? Muscle relaxants (such as Soma or Flexeril) ? Hypnotics (such as Ambien or Lunesta) ? Other prescription opioids KNOW YOUR OPTIONS Talk to your health care provider about ways to manage your pain that don?t involve prescription opioids. Some of these options may actually work better and have fewer risks and side effects. Options may include: ? Pain relievers such as acetaminophen, ibuprofen, and naproxen ? Some medication that are also used for depression or seizures ? Physical therapy and exercise ? Cognitive behavioral therapy, a psychological, goal-directed approach, in which patients learn how to modify physical, behavioral, and emotional triggers of pain and stress. IF YOU ARE PRESCRIBED OPIOIDS FOR PAIN: ? Never take opioids in greater amounts or more often than prescribed. ? Follow up with your primary health care provider. o Work together to create a plan on how to manage your pain. o Talk about ways to help manage your pain that don?t involve prescription opioids. o Talk about any and all concerns and side effects. ? Help prevent misuse and abuse o Never sell or share prescription opioids. o Never use another person?s (more content not included)... [facility] [id number] 03-28-2024 HbA1c (Bld) [Mass fraction] 9.0 % High <=5.9 [facility] Comment on above: Performed By: #### [id number] #### [facility] [address] [place] [address] U Microalbon 03-28-2024 Albumin DL <= 20 mg/L (U) [Mass/Vol] 5.0 mg/dL High 0.0-1.9 [facility] Comment on above: Performed By: #### 1 [id number] #### [facility] [address] [place] [address] U Protein/Creat Ratioon 03-01 Protein/Creatinine (U) [Ratio] 25.30 mg/gm Cr Normal .00-200.00 [facility] Comment on above: Performed By: #### 1 [id number] #### [facility] [address] [place] [address] U Creatinine 47.8 mg/dL Invalid Interpretation Code [facility] Comment on above: Performed By: #### 1 [id number] #### [facility] [address] [place] [address] Ur Total Protein 12.1 mg/dL Invalid Interpretation Code [facility] Comment on above: Performed By: #### 1 [id number] #### [facility] [address] [place] [address] Outside Diabetes Eye Examon 03-22-2024 Outside Diabetes Eye Exam [id number] IFF [facility] Retail - Clinical Noteon Retail - Clinical Note [id number] IFF [facility] Family Medicine Office/Clini c Noteon 02-25-2024 Family Medicine Office/Clinic Note Chief Complaint 3 mo fu HPI Staff 3 Mo Fu HLD Patient is here for follow up on Diabetes. How often are you checking your blood sugars? 1 times per day What are your average readings? a little over 200 because she went off the Jardiance Do you have any of the following symptoms? Foot Exam: 12/30/22 Eye Exam: 07/25/23 Microalbumin: U Microalb: 110.2 mcg/mL High (12/30/22 14:56:00) Last A1C: Hgb A1C %: 8.7 % High (10/14/22 11:22:00) Hgb A1c POC: 7.9 % (11/20/23 14:00:00) Last Chronic Labs: 10/10/23 questions/concerns: refills: fluconazole, handicap sticker, dm, htn, hchol, due for urine microalbumin History of Present Illness I have reviewed and verified the staff HPI to be accurate for this encounter. Tamra Crowley is a 58-year-old female who presents for evaluation of multiple medical concerns. Tremfya has been highly effective for her psoriasis. The patient has yet to start new medications for her neuropathy. She has consulted with a vat house supervisor, Dr. El Zarate, who suggested the application of Capsaicin and wrapped her foot for 30 minutes to alleviate neuropathy symptoms. However, the patient expresses dissatisfaction with the treatment and is seeking advice on potential use of capsaicin cream. She has previously tried gabapentin but suspects it may have contributed to her hand swelling. She is taking an kiba-sox-ottqwlq medicine for nerve relief. She has not taken methotrexate in the past. Her blood pressure is satisfactory today. Aside from furosemide, she is not on any anti-hypertensive medications. She reports not having chest pains or stroke-like symptoms. She intermittently experience lower extremity edema. She also reports numbness in her leg and back, which led to a hospital visit in early 01/2024. Prior to the hospital visit, the patient's one toe exhibited increased swelling, a persistent bruise, and began to show signs of redness. She continues her atorvastatin regimen for cholesterol management and is asking if it affects nerves. The patient monitors her blood glucose levels daily. Jardiance was initially effective, but due to recurrent yeast infections, she discontinued its use. She is currently on the highest dose of Trulicity. She is currently taking 18 units of NovoLOG twice daily and 48 units of Levemir at night. She is considering a weight loss injection. She had her eye exam done in 06/2023. The patient is seeking refills for her yeast infection medication. Her condition has resolved, and she is currently utilizing the prescription provided by her OBGYN. She continues her famotidine regimen as needed for acid indigestion. She avoids foods that induce nocturnal acid indigestion. When consuming foods that trigger symptoms, she ensures to take famotidine before bedtime. She had foot surgery in the past. She quit smoking in 2015. She intermittently smoked since youth, around 40 years ago, but smoked 0.5 to 1 pack per day later in life. She temporarily abstained from smoking for 9 months during . She is seeking a handicap sticker, which is set to next month, and currently does not drive but finds relief with transportation assistance. Her maternal grandmother was diagnosed with breast cancer and underwent a mastectomy. Review of Systems PHQ Score Initial Depression Screen Score: 0 SCORE Constitutional: no fever, no chills, no sweats, no weakness Respiratory: no shortness of breath, no cough, no orthopnea, no wheezing Cardiovascular: no chest pain, no palpitations, no edema Additional ROS info: Except as noted in the above Review of Systems and in the History of Present Illness all other systems have been reviewed and are negative or noncontributory. Physical Exam Vitals & Measurements HR: 94(Peripheral) BP: 126/88 SpO2: 93% HT: 66 in HT: 168 cm WT: 137.2 kg WT: 301.84 lb BMI: 48.61 GENERAL: The patient is a morbidly obese white female, here alone, in no apparent distress. HEENT: no abnormalities CARDIAC: regular rate and rhythm, no murmurs, rubs, clicks, or gallops LUNGS: clear to auscultation, no wheezes, rales, or rhonchi EXT: The patient has 2+ chronic edema in her extremities. MUSCULOSKELETAL: normal gait PSYCHIATRIC: alert and oriented x3, normal speech and thought content, normal mood, and affect SKIN: The patient has healing psoriasis. plaques on extremities Assessment/Plan 1. Type 2 diabetes mellitus with hypertriglyceridemia (E11.69: Type 2 diabetes mellitus with other specified complication) An A1c test has been ordered. The patient did not tolerate Jardiance well, which resulted in a significant yeast infection. She is currently on a regimen of Trulicity 4.5 and is open to trying Mounjaro which I have initiated a 5 mg to ascertain if her insurance would cover it. She is also on NovoLog 18 units with meals and Levemir 48 units at night. Pending results, we may need to adjust the dosage. She does not tolerate metformin well. An external eye exam reveale (more content not included)... [facility] Comment on above: Result Comment: Elec tronically Signed By: Brooke ELIZALDE MD\.br\Date and Time Signed: 02/25/24 13:30 EDT\.br\Electronically Co-Signed By: Carmen Torres\.br\Date and Time Co-Signed: 02/16/24 17:45 EDT Pre-Certification Formon Pre-Certification Form [id number] IFF [facility] Ambulatory Visit Summaryon 0 02-16-2024 Ambulatory Visit Summary TAMRA GRIDER :1965 Visit Date:02/16/2024 Ambulatory Visit Instructions Your Diagnosis Type 2 diabetes mellitus with hypertriglyceridemia Mixed hyperlipidemia Morbid obesity due to excess calories Long-term insulin use Psoriasis Immunosuppression Atherosclerosis of abdominal aorta COPD mixed type BMI 45.0-49.9, adult Former smoker Diabetic neuropathy Pure hyperglyceridemia Vulvovaginal candidiasis Your Care Team Attending Physician - Brooke ELIZALDE MD Primary Care Physician - Brooke ELIZALDE MD This Is Your Medications List Misc Prescription (Test Strips) Misc Prescription (lancets) Misc Prescription (pen needles 6mm, 31 g) Misc Prescription (permanent handicap placard) atorvastatin (atorvastatin 40 mg Tab) dulaglutide (Trulicity Pen 4.5 mg/0.5 mL subcutaneous solution) famotidine (famotidine 20 mg Tab) fluconazole (fluconazole 150 mg Tab) furosemide (Lasix 20 mg Tab) guselkumab (Tremfya One-Press 100 mg/mL subcutaneous solution) hydrocortisone topical (hydrocortisone Top 2.5% Crm) ibuprofen (ibuprofen 800 mg Tab) nystatin topical (nystatin Top 100,000 units/g Pwdr) tirzepatide (Mounjaro 5 mg/0.5 mL subcutaneous solution) umeclidinium-vilanterol (Anoro Ellipta 62.5 mcg-25 mcg inhalation powder) zinc sulfate (Zinc) Contact prescribing physician if questions or concerns insulin aspart (NovoLOG FlexPen 100 units/mL injectable solution) insulin detemir (Levemir FlexTouch 100 units/mL subcutaneous solution) [Image Removed: STOP]Stop taking these medications clindamycin (clindamycin 150 mg Cap) empagliflozin (Jardiance 10 mg oral tablet) naproxen (Naprosyn 500 mg Tab) Procedures Performed Colonoscopy (05/07/2021), Colonoscopy (05/07/2021), Colonoscopy (05/10/2016), Laparotomy (2014), Hernia repair (2011), Appendectomy;., History of total hysterectomy, MULTIPLE HERNIA REPAIRS. Discharge Vitals Heart Rate (Peripheral) 94 Blood Pressure 126/88 Height 168 cm Height 66 in Weight 137.2 kg Weight 301.84 lb BMI 48.61 What to do next Scheduled Follow-Up Appointments Monday 1:00 PM EDT With: Where: [facility] [address] [address]- \.br\ You Need to Schedule the Following Appointments\.br \ Follow Up with THADDEUS DEUTSCH, JORDI Piedra When: In 3 months\.br\ Where:\.br\ \.br\ You Need to Complete the Following\.br\ HgbA1c, Blood, Routine collect, 02/16/24, Order for future visit, Lab Collect, Type 2 diabetes mellitus with hypertriglycerid emia, Required & Missing, Print Label By Order Location\.br\ Microalbumin Level Urine, Urine, Routine collect, 02/16/24, Order for future visit, Nurse collect, Diabetes type 2, uncontrolled, Not Required, Print Label By Order Location\.br\ U Protein/Creat Ratio, Urine, Routine collect, 02/16/24, Order for future visit, Nurse collect, Diabetes type 2, uncontrolled, Not Required, Print Label By Order Location\.br\ CT Chest, Low Dose Screening, 02/16/24, Routine, Order for future visit, Transport Mode: Cart, Reason: Screening, No, Yes, Yes, 0.5, 40, Yes, 7, [id number], No, History of cigarette smoking, pp_set_radiology _subspecialty, Not Required, [place]\.br\ Medications\.br\ What How Much When Why Instructions\.br \ New Misc Prescription (permanent handicap placard) See instructions Refills: 5 for permanent medical condition, 5 years, needs 2 placards Printed Prescription\.br \ New tirzepatide (Mounjaro 5 mg/ 0.5 mL subcutaneous solution) 5 Milligram Subcutaneous Every week Refills: 3 Pickup at [facility] 1985\.br\ Unchanged atorvastatin (atorvastatin 40 mg Tab) 1 Tablets By Mouth Every day\.br\ Unchanged dulaglutide (Trulicity Pen 4.5 mg/ 0.5 mL subcutaneous solution) 4.5 Milligram Subcutaneous Every week\.br\ Unchanged famotidine (famotidine 20 mg Tab) 1 Tablets By Mouth 2 times a day as needed for Dyspepsia\.br\ Unchanged fluconazole (fluconazole 150 mg Tab) 1 Tablets By Mouth Once Vulvovaginal candidiasis Pickup at [facility] 1985\.br\ Unchanged furosemide (Lasix 20 mg Tab) 1 Tablets By Mouth Every day\.br\ Unchanged guselkumab (Tremfya One-Press 100 mg/ mL subcutaneous solution)\.br\ Unchanged hydrocortisone topical (hydrocortisone Top 2.5% Crm) 1 Application Topical 3 times a day as needed for Itching Cutaneous candidiasis\.br\ Unchanged ibuprofen (ibuprofen 800 mg Tab) 1 Tablets By Mouth 3 times a day as needed for as needed for pain Chronic pain syndrome Pickup at [facility] 1985\.br\ Unchanged Misc Prescription (lancets) See instructions test daily E11.65 \.br\ Unchanged Misc Prescription (pen needles 6mm, 31 g) See instructions injects qid. and weekly for trulicity, needs 125 per month or 375 per 3months dx E11.65 \.br\ Unchanged Misc Prescription (Test Strips) See instructions test daily E11.65 \.br\ Unchanged nystatin topical (nystatin Top 100,000 units/ g Pwdr) 1 Application Topical 3 times a day Cutaneous candidiasis do for 2 weeks \.br\ Unchanged umeclidinium-jaleel anterol (Anoro Ellipta 62.5 mcg-25 mcg inhalation powder) 1 Inhalation Inhalation Every day\.br\ Unchanged zinc sulfate (Zinc) 50 Milligram By Mouth Every day only during winter months \.br\ Unchanged insulin aspart (NovoLOG FlexPen 100 units/ mL injectable solution) 18 Units Subcutaneous Before meals before a meal Contact prescribing physician if questions or concerns \.br\ Unchanged insulin detemir (Levemir FlexTouch 100 units/ mL subcutaneous solution) 48 Units Subcutaneous At bedtime Contact prescribing physician if questions or concerns \.br\ Pharmacy Information\.br\ [facility] 1986: [id number] [facility] [place], [place] [id number] [phone]\.br\ \.br\ What How Much When Comments\.br\ Stop Taking clindamycin (clindamycin 150 mg Cap) 2 Capsules By Mouth 3 times a day\.br\ Stop Taking empagliflozin (Jardiance 10 mg oral tablet) 1 Tablets By Mouth Once a day (in the morning)\.br\ Stop Taking naproxen (Naprosyn 500 mg Tab) 1 Tablets By Mouth 2 times a day\.br\ Allergies\.br\ penicillins (Rash)\.br\ Lodine (Swelling)\.br\ predniSONE (Muscle spasm - tone)\.br\ Problems\.br\ Ongoing - Any problem that you are currently receiving treatment for.\.br\ Atherosclerosis of abdominal aorta\.br\ Bilateral hand pain\.br\ Chronic pain syndrome\.br\ COPD mixed type\.br\ Dental caries\.br\ Diabetes type 2, uncontrolled\.br \ Diabetic neuropathy\.br\ Edema of abdomen\.br\ Elevated liver function tests\.br\ Family hx colonic polyps\.br\ Family hx of colon cancer\.br\ Financial insecurity\.br\ High risk medication use\.br\ History of cigarette smoking\.br\ Hx of cervical cancer\.br\ Hypertriglycerid emia\.br\ Immunosuppressio n\.br\ Knee pain\.br\ Left wrist pain\.br\ Long-term insulin use\.br\ Lumbar radiculopathy\.b r\ Lumbar spondylosis with myelopathy\.br\ Mixed hyperlipidemia\. br\ Morbid obesity due to excess calories\.br\ Neuropathic pain, leg, bilateral\.br\ Neuropathy, ilioinguinal nerve\.br\ Non-smoker\.br\ Numbness of fingers of both hands\.br\ Open angle with borderline findings, low risk, bilateral\.br\ Periodontal disease\.br\ Personal history of colonic polyps\.br\ Polyarthralgia\. br\ Psoriasis\.br\ Right leg weakness\.br\ Right lower quadrant abdominal pain\.br\ Right upper quadrant pain\.br\ Screening mammogram, encounter for\.br\ Spinal stenosis\.br\ Type 2 diabetes mellitus with hypertriglycerid emia\.br\ Vaginal candidiasis\.br\ Historical - Any problem that you are no longer receiving treatment for.\.br\ Abdominal wall pain\.br\ At risk for falls\.br\ Body mass index 45.0-49.9, adult\.br\ Cervical cancer\.br\ Chronic back pain\.br\ chronic knee pain\.br\ Controlled type 2 diabetes mellitus with diabetic neuropathy, with long-term current use of insulin\.br\ Depression\.br\ Diabetes mellitus\.br\ Elevated BP without diagnosis of hypertension\.br \ Endometriosis\.b r\ GERD without esophagitis\.br\ History of smoking\.br\ hysterectomy\.br \ Incisional hernia\.br\ Infected tooth\.br\ Major depressive disorder, recurrent, moderate\.br\ Migraine\.br\ Moderate recurrent major depression\.br\ Ovarian cyst\.br\ Pain, dental\.br\ Recurrent inguinal hernia\.br\ Repair of ventral hernia\.br\ RLQ abdominal pain\.br\ Shortness of breath\.br\ Situational depression\.br\ Smoker\.br\ Type 2 diabetes mellitus with hyperlipidemia\. br\ Ventral hernia\.br\ Patient Survey\.br\ You may receive a survey via text or e-mail asking about your office visit. Please share your experience with us by completing your survey. We appreciate your feedback and thank you for choosing us for your care.\.br\ Education Materials\.br\ Exercising to Lose Weight\.br\ Getting regular exercise is important for everyone. It is especially important if you are overweight. Being overweight increases your risk of heart disease, stroke, diabetes, high blood pressure, and several types of cancer. Exercising, and reducing the calories you consume, can help you lose weight and improve fitness and health.\.br\ Exercise can be moderate or vigorous intensity. To lose weight, most people need to do a certain amount of moderate or vigorous-intensi ty exercise each week.\.br\ How can exercise affect me?\.br\ You lose weight when you exercise enough to burn more calories than you eat. Exercise also reduces body fat and builds muscle. The more muscle you have, the more calories you burn. Exercise also:\.br\ ? \.br\ Improves mood.\.br\ ? \.br\ Reduces stress and tension.\.br\ ? \.br\ Improves your overall fitness, flexibility, and endurance.\.br\ ? \.br\ Increases bone strength.\.br\ Moderate-intensi ty exercise\.br\ \.br\ Moderate-intensi ty exercise is any activity that gets [facility] Insurance Correspondenceon 0 02-16-2024 Insurance Correspondence [id number] TIFF [facility] Patient Educationon 02-16-20 Patient Education Endocrinology Diabetes Mellitus and Nutrition, Adult When you have diabetes, or diabetes mellitus, it is very important to have healthy eating habits because your blood sugar (glucose) levels are greatly affected by what you eat and drink. Eating healthy foods in the right amounts, at about the same times every day, can help you: ? Manage your blood glucose. ? Lower your risk of heart disease. ? Improve your blood pressure. ? Reach or maintain a healthy weight. What can affect my meal plan? Every person with diabetes is different, and each person has different needs for a meal plan. Your health care provider may recommend that you work with a dietitian to make a meal plan that is best for you. Your meal plan may vary depending on factors such as: ? The calories you need. ? The medicines you take. ? Your weight. ? Your blood glucose, blood pressure, and cholesterol levels. ? Your activity level. ? Other health conditions you have, such as heart or kidney disease. How do carbohydrates affect me? Carbohydrates, also called carbs, affect your blood glucose level more than any other type of food. Eating carbs raises the amount of glucose in your blood. It is important to know how many carbs you can safely have in each meal. This is different for every person. Your dietitian can help you calculate how many carbs you should have at each meal and for each snack. How does alcohol affect me? Alcohol can cause a decrease in blood glucose (hypoglycemia), especially if you use insulin or take certain diabetes medicines by mouth. Hypoglycemia can be a life-threatening condition. Symptoms of hypoglycemia, such as sleepiness, dizziness, and confusion, are similar to symptoms of having too much alcohol. ? Do not drink alcohol if: ? Your health care provider tells you not to drink. ? You are , may be , or are planning to become . ? If you drink alcohol: ? Limit how much you have to: ? 0?1 drink a day for women. ? 0?2 drinks a day for men. ? Know how much alcohol is in your drink. In the [place] one drink equals one 12 oz bottle of beer (355 mL), one 5 oz glass of wine (148 mL), or one 1? oz glass of hard liquor (44 mL). ? Keep yourself hydrated with water, diet soda, or unsweetened iced tea. Keep in mind that regular soda, juice, and other mixers may contain a lot of sugar and must be counted as carbs. What are tips for following this plan? Reading food labels ? Start by checking the serving size on the Nutrition Facts label of packaged foods and drinks. The number of calories and the amount of carbs, fats, and other nutrients listed on the label are based on one serving of the item. Many items contain more than one serving per package. ? Check the total grams (g) of carbs in one serving. ? Check the number of grams of saturated fats and trans fats in one serving. Choose foods that have a low amount or none of these fats. ? Check the number of milligrams (mg) of salt (sodium) in one serving. Most people should limit total sodium intake to less than 2,300 mg per day. ? Always check the nutrition information of foods labeled as low-fat or nonfat. These foods may be higher in added sugar or refined carbs and should be avoided. ? Talk to your dietitian to identify your daily goals for nutrients listed on the label. Shopping ? Avoid buying canned, pre-made, or processed foods. These foods tend to be high in fat, sodium, and added sugar. ? Shop around the outside edge of the grocery store. This is where you will most often find fresh fruits and vegetables, bulk grains, fresh meats, and fresh dairy products. Cooking ? Use low-heat cooking methods, such as baking, instead of high-heat cooking methods, such as deep frying. ? Cook using healthy oils, such as olive, canola, or sunflower oil. ? Avoid cooking with butter, cream, or high-fat meats. Meal planning ? Eat meals and snacks regularly, preferably at the same times every day. Avoid going long periods of time without eating. ? Eat foods that are high in fiber, such as fresh fruits, vegetables, beans, and whole grains. ? Eat 4?6 oz (112?168 g) of lean protein each day, such as lean meat, chicken, fish, eggs, or tofu. One ounce (oz) (28 g) of lean protein is equal to: ? 1 oz (28 g) of meat, chicken, or fish. ? 1 egg. ? ? cup (62 g) of tofu. ? Eat some foods each day that contain healthy fats, such as avocado, nuts, seeds, and fish. What foods should I eat? Fruits Berries. Apples. Oranges. Peaches. Apricots. Plums. Grapes. Mangoes. Papayas. Pomegranates. Kiwi. Cherries. Vegetables Leafy greens, including lettuce, spinach, kale, chard, lesley greens, mustard greens, and cabbage. Beets. Cauliflower. Broccoli. Carrots. Green beans. Tomatoes. Peppers. Onions. Cucumbers. Almo sprouts. Grains Whole grains, such as whole-wheat or whole-grain bread, crackers, tortillas, cereal, and pasta. Unsweetened oatmeal. (more content not included)... [facility] Consent for Treatmenton Consent for Treatment [id number] IFF [facility] Discharge Instructionson Discharge Instructions [id number] IFF [facility] ED Clinical Summaryon 2023 ED Clinical Summary (Inserted Image. Anika ble to display) [address] [address] ED Clinical Summary Person Information Name: TAMRA GRIDER [place] Age: 58 Years : 1965 Sex: Female Language: Malaysian PCP: Brooke ELIZALDE MD Marital Status: Visit Id: Visit Reason: Toe pain-swelling; Foot pain-swelling; FOOT IS RED Speciality: Acuity: 4 Enc Type: Emergency Med Service: Emergency Arrival: 02/02/2024 10:23:29 Discharge: 02/02/2024 10:47:17 LOS: 000 00:24 Checkin: 02/02/2024 10:23:29 Checkout: 02/02/2024 10:47:17 Dispo Type: Home (Routine DC) EVENTS: Event Name Event Status Request Date/Time Start Date/Time Complete Date/Time Arrive Complete 02/02/2024 10:23:29 02/02/2024 10:23:29 02/02/2024 10:23:29 Document Home Meds Request 02/02/2024 10:23:29 Triage Complete 02/02/2024 10:23:29 02/02/2024 10:30:36 02/02/2024 10:30:36 Bed Assign Complete 02/02/2024 10:25:04 02/02/2024 10:25:04 02/02/2024 10:25:04 Dr Exam Complete 02/02/2024 10:25:04 02/02/2024 10:25:59 02/02/2024 10:25:59 RN Exam Complete 02/02/2024 10:25:04 02/02/2024 10:40:43 02/02/2024 10:40:43 Registration Complete 02/02/2024 10:25:59 02/02/2024 10:29:10 02/02/2024 10:29:10 Reg Complete Request 02/02/2024 10:29:10 Reg Bed Request Complete 02/02/2024 10:29:10 02/02/2024 10:29:10 02/02/2024 10:29:10 Discharge Complete 02/02/2024 10:41:41 02/02/2024 10:47:27 02/02/2024 10:47:27 Transfer Complete 02/02/2024 10:47:27 02/02/2024 10:47:27 02/02/2024 10:47:27 ADDRESS: [address] [id number] PHYS DOC NOTES: MEDICAL INFORMATION: Prescriptions Given: Medications to Continue with No Changes Other Medications atorvastatin (atorvastatin 40 mg Tab) 1 Tablets By Mouth every day. Refills: 4. clindamycin (clindamycin 150 mg Cap) 2 Capsules By Mouth 3 times a day. Refills: 0. dulaglutide (Trulicity Pen 4.5 mg/0.5 mL subcutaneous solution) 4.5 Milligram Subcutaneous every week. Refills: 3. empagliflozin (Jardiance 10 mg oral tablet) 1 Tablets By Mouth once a day (in the morning). Refills: 5. famotidine (famotidine 20 mg Tab) 1 Tablets By Mouth 2 times a day as needed Dyspepsia. Refills: 4. fluconazole (fluconazole 150 mg Tab) 1 Tablets By Mouth Once. Refills: 0. furosemide (Lasix 20 mg Tab) 1 Tablets By Mouth every day. Refills: 4. guselkumab (Tremfya One-Press 100 mg/mL subcutaneous solution) hydrocortisone topical (hydrocortisone Top 2.5% Crm) 1 Application Topical 3 times a day as needed Itching. Refills: 1. ibuprofen (ibuprofen 800 mg Tab) 1 Tablets By Mouth 3 times a day as needed as needed for pain. Refills: 3. insulin aspart (NovoLOG FlexPen 100 units/mL injectable solution) 18 Units Subcutaneous before meals. before a meal. Refills: 4. insulin detemir (Levemir FlexTouch 100 units/mL subcutaneous solution) 48 Units Subcutaneous at bedtime. Refills: 4. Misc Prescription (lancets) test daily E11.65. Refills: 4. Misc Prescription (pen needles 6mm, 31 g) injects qid. and weekly for trulicity, needs 125 per month or 375 per 3months dx E11.65. Refills: 4. Misc Prescription (Test Strips) test daily E11.65. Refills: 3. naproxen (Naprosyn 500 mg Tab) 1 Tablets By Mouth 2 times a day. Refills: 11. nystatin topical (nystatin Top 100,000 units/g Pwdr) 1 Application Topical 3 times a day. do for 2 weeks. Refills: 0. umeclidinium-vilanterol (Anoro Ellipta 62.5 mcg-25 mcg inhalation powder) 1 Inhalation Inhalation every day. Refills: 12. zinc sulfate (Zinc) 50 Milligram By Mouth every day. only during winter months. 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 Return to the ED with pain, fever, or worsening symptoms. With: Address: When: Brooke ELIZALDE [address] [place] [address] [facility] () In 3 days 02/05/2024 Comments: Call the office of your primary care doctor to arrange for follow-up within the above-stated timeframe. Follow-up with your primary care doctor about this ED visit. You should review your labs, imaging, and diagnoses from this ED visit with your primary care physician. There are occasionally non-emergent findings that require additional follow-up after your ED visit. If you were prescribed medications you should discuss possible side-effects and drug interactions with your pharmacist. Call 911 or go to the nearest Emergency Department if you develop any new or worsening symptoms. DIAGNOSIS: Discoloration of skin of toe [facility] ED Note-Physicianon 02-02-20 ED Note-Physician Basic Information Time Seen: Jean Huang DO 02/02/2024 10:26 Chief Complaint patient c/o right foot redness (second and third toes) that started on monday. hx diabetes History of Present Illness 58-year-old female to the emergency department chief complaint of discoloration to her second and third toes. She noticed it on Monday after wearing a tight pair shoes. She reports a history of diabetes with severe neuropathy. She denies any pain. She denies any fever, sweats, chills. She reports it looks as though they are bruised. Review of Systems A 10 point review of systems is negative except as noted above. Medical and Surgical History: Reviewed and noted Social history: Lives at home Tobacco: Denies Physical Exam Vitals & Measurements T: 37 ?C(Oral) HR: 104(Peripheral) RR: 18 BP: 167/100 SpO2: 97% HT: 168 cm WT: 136.2 kg BMI: 48.26 VITALS: I have reviewed the triage vital signs. GENERAL: Well developed, well appearing adult in no acute distress. NEURO: Alert and oriented. Moves all extremities. Face is symmetric and expressive. EYES: PERRL. No scleral icterus or conjunctival injection. No discharge. HENT: Normocephalic, atraumatic. Hearing is grossly intact. Nares grossly patent and without discharge. Mucous membranes moist. NECK: No JVD. Patient moves neck without restriction. Right foot: DP and PT pulses are intact. Sensation is intact throughout the foot. Similar color and temperature to the contralateral extremity. There is a faint bluish-purple tinge to the anterior surface of the tip of the second and third digits concerning for faint ecchymosis. No erythema or warmth. Cap refill intact in the digits. SKIN: Warm and dry. Normal turgor. No rash or lesions appreciated. PSYCH: Mood, affect, and interaction is appropriate to the setting. Medical Decision Making Toes with some minimal discoloration consistent with ecchymosis. She reports that she worked shoes that were too tight the day this appeared. No obvious injury or deformity. No evidence of infectious process. Neurovascularly intact. She is appropriate for outpatient follow-up with her vat house supervisor. Return precautions maritza. All questions were answered. Patient was discharged home. Assessment/Plan Discoloration of skin of toe (L81.9: Disorder of pigmentation, unspecified) Disposition Plan Patient Discharge Condition Stable Discharge Disposition Home Discharge Prescription List Prescriptions No active prescription medications Follow-up With When Contact Information [employer] In 3 days 02/05/2024 EDT Additional Instructions: Follow-up with your vat house supervisor this week. Return to the ED with pain, fever, or worsening symptoms. Brooke ELIZALDE In 3 days 02/05/[address] [place] [address] Business (1) Additional Instructions: Call the office of your primary care doctor to arrange for follow-up within the above-stated timeframe. Follow-up with your primary care doctor about this ED visit. You should review your labs, imaging, and diagnoses from this ED visit with your primary care physician. There are occasionally non-emergent findings that require additional follow-up after your ED visit. If you were prescribed medications you should discuss possible side-effects and drug interactions with your pharmacist. Call 911 or go to the nearest Emergency Department if you develop any new or worsening symptoms. Patient Education Medical Screening Exam Problem List/Past Medical History Ongoing Atherosclerosis of abdominal aorta Bilateral hand pain Chronic pain syndrome COPD mixed type Dental caries Diabetes type 2, uncontrolled Edema of abdomen Elevated liver function tests Family hx colonic polyps Family hx of colon cancer Financial insecurity High risk medication use History of cigarette smoking Hx of cervical cancer Hypertriglyceridemia Immunosuppression Knee pain Left wrist pain Long-term insulin use Lumbar radiculopathy Lumbar spondylosis with myelopathy Mixed hyperlipidemia Morbid obesity due to excess calories Neuropathic pain, leg, bilateral Neuropathy, ilioinguinal nerve Non-smoker Numbness of fingers of both hands Open angle with borderline findings, low risk, bilateral Periodontal disease Personal history of colonic polyps Polyarthralgia Psoriasis Right leg weakness Right lower quadrant abdominal pain Right upper quadrant pain Screening mammogram, encounter for Spinal stenosis Type 2 diabetes mellitus with hypertriglyceridemia Vaginal candidiasis Historical Abdominal wall pain At risk for falls Body mass index 45.0-49.9, adult Cervical cancer Chronic back pain chronic knee pain Controlled type 2 diabetes mellitus with diabetic neuropathy, with long-term current use of insulin Depression Diabetes mellitus Elevated BP without diagnosis of hypertension Endometriosis GERD without esophagitis (more content not included)... [facility] Comment on above: Result Comment: Elec tronically Signed By: Jean Hunag DO\.br\Date and Time Signed: 02/02/24 14:16 EDT ED Patient Education Noteon 02-02-2024 ED Patient Education Note Emergency Medicine Medical Screening Exam A medical screening exam (MSE) helps to determine whether you need immediate medical treatment relating to any number of symptoms you are having. This type of exam may be done in an emergency department, an urgent care setting, or your health care provider's office. Depending on your symptoms and severity, you may need additional tests or medical therapy. It is important to note that an MSE does not necessarily mean that you will need or receive further medical testing or interventions if your symptoms are not deemed to be medically urgent (emergent). Tell a health care provider about: ? Any allergies you have. ? All medicines you are taking, including vitamins, herbs, eye drops, creams, and qawp-xdd-bvmhfte medicines. ? Any problems you or family members have had with anesthetic medicines. ? Any bleeding problems you have. ? Any surgeries you have had. ? Any medical conditions you have. ? Whether you are or may be . What happens during the test? During the exam, a health care provider does a short, often focused, physical exam and asks about your medical history to assess: ? Your current symptoms. ? Your overall health. ? Your need for possible further medical intervention. What can I expect after the test? If you have a regular health care provider, make an appointment for a follow-up visit with him or her. If you do not have a regular health care provider, ask about resources in your community. Your medical screening exam may determine that: ? You do not need emergency treatment at this time. ? You need treatment right away. ? You need to be transferred to another medical center. This may happen if you need an emergent specialist or data power consultant that is not available at the medical center you are at. ? You need to have more tests. A emergency medical service coordinator may be consulted if needed. Get help right away if: ? Your condition gets worse. ? You develop new or troubling symptoms before you see your health care provider. These symptoms may represent a serious problem that is an emergency. Do not wait to see if the symptoms will go away. Get medical help right away. Call your local emergency services (911 in the [place] Do not drive yourself to the hospital. Summary ? A medical screening exam helps to determine whether you need medical treatment right away. This type of exam may be done in an emergency department, an urgent care setting, or your health care provider's office. ? During the exam, a health care provider does a short physical exam and asks about your current symptoms and overall health. ? Depending on the exam, more tests or therapies may be ordered. However, an MSE does not necessarily mean that you will have further medical testing if your symptoms are not deemed to be urgent. ? If you need further care that is not offered at your current medical center, you may need to be transferred to another facility. This information is not intended to replace advice given to you by your health care provider. Make sure you discuss any questions you have with your health care provider. Document Revised: 06/29/2022 Document Reviewed: 02/24/2022 Elsevier Patient Education ? 2022 [employer] [facility] ED Patient Summaryon 024 ED Patient Summary (Inserted Image. Anika ble to display) [address] [address] Patient Discharge Instructions Person Information Name: TAMRA GRIDER Age: 58 Years Arrival Date: 02/02/2024 10:23:29 Discharge Diagnosis: Discoloration of skin of toe Primary Care Physician: THADDEUS DEUTSCH, Brooke Mccray Provider Information Primary Provider: Jean Huang DO Advanced Verify Rep:None The exam and treatment you received in the Emergency Department were for an urgent problem and are not intended as complete care. It is important that you follow up with a doctor, nurse practitioner, or physician?s manufacturing assistant for ongoing care. If your symptoms become worse or you do not improve as expected and you are unable to reach your usual health care provider, you should return to the Emergency Department. We are available 24 hours a day. TAMRA GRIDER has been given the following list of patient education materials, prescriptions and follow-up instructions: Follow-up Instructions: With: Address: When: [employer] In 3 days 02/05/2024 Comments: Follow-up with your vat house supervisor this week. Return to the ED with pain, fever, or worsening symptoms. With: Address: When: Brooke ELIZALDE [address] [facility] [address], [place] [address] [facility] (1) In 3 days 02/05/2024 Comments: Call the office of your primary care doctor to arrange for follow-up within the above-stated timeframe. Follow-up with your primary care doctor about this ED visit. You should review your labs, imaging, and diagnoses from this ED visit with your primary care physician. There are occasionally non-emergent findings that require additional follow-up after your ED visit. If you were prescribed medications you should discuss possible side-effects and drug interactions with your pharmacist. Call 911 or go to the nearest Emergency Department if you develop any new or worsening symptoms. In the event that this physician does not participate in your insurance network, please consult with your insurance company to find a nearby participating provider. Patient Education Materials: Medical Screening Exam A MESSAGE TO ALL PATIENTS REGARDING OPIOIDS PRESCRIPTION OPIOIDS: WHAT YOU NEED TO KNOW Prescription opioids can be used to help relieve zerrkrnu-ri-ueolcq pain and are often prescribed following a surgery or injury, or for certain health conditions. These medications can be an important part of the treatment but also come with serious risks. It is important to work with your healthcare provider to make sure you are getting the safest, most effective care. WHAT ARE THE RISKS AND SIDE EFFECTS OF OPIOID USE? Prescription opioids carry serious risks of addiction and overdose, especially with prolonged use. An opioid overdose, often marked by slowed breathing, can cause sudden . The use of prescription opioids can have a number of side effects as well, even when taken as directed: ? Tolerance?meaning you might need to take more of the medication for the same pain relief ? Physical dependence?meaning you have symptoms of withdrawal when a medication is stopped ? Increased sensitivity to pain ? Constipation ? Nausea, vomiting, and dry mouth ? Sleepiness and dizziness ? Confusion ? Depression ? Low levels of testosterone that can result in lower sex drive, energy, and strength ? Itching and sweating RISKS ARE GREATER WITH: ? History of drug misuse, substance use disorder, or overdose ? Mental health conditions (such as depression or anxiety) ? Sleep apnea ? Older age (65 years and older) ? Avoid alcohol while taking prescription opioids. Also, unless specifically advised by your health care provider, medications to avoid include: ? Benzodiazepines (such as Xanax or Valium) ? Muscle relaxants (such as Soma or Flexeril) ? Hypnotics (such as Ambien or Lunesta) ? Other prescription opioids KNOW YOUR OPTIONS Talk to your health care provider about ways to manage your pain that don?t involve prescription opioids. Some of these options may actually work better and have fewer risks and side effects. Options may include: ? Pain relievers such as acetaminophen, ibuprofen, and naproxen ? Some medication that are also used for depression or seizures ? Physical therapy and exercise ? Cognitive behavioral therapy, a psychological, goal-directed approach, in which patients learn how to modify physical, behavioral, and emotional triggers of pain and stress. IF YOU ARE PRESCRIBED OPIOIDS FOR PAIN: ? Never take opioids in greater amounts or more often than prescribed. ? Follow up with your primary health care provider. o Work together to create a plan on how to manage your pain. o Talk about ways to help manage your pain that don?t involve prescription opioids. o Talk about any and all concern (more content not included)... [facility] Interdisciplinary Note - Soc ial Workeron 12-15-2023 Interdisciplinary Note - Rim Technician This SW received a consult for patient regarding need for financial resources. SW made a tc to her and left a message requesting she contact SW. SW will remain available. [facility] Pre-Certification Formon Pre-Certification Form [id number]#1.00T IFF [facility] MRI Spine Lumbar w/o Contras ton 11-27-2023 MRI Spine Lumbar w/o Contrast Exam Date/Time: 11/24/2023 14:37 EST Reason for Exam: [id number];Spinal stenosis Report IMPRESSION: DEGENERATIVE CHANGES OF THE LUMBAR SPINE DETAILED. EXAM: MRI of the lumbar spine without contrast History: Left leg and foot numbness and tingling. Technique: Multiplanar multisequence MRI of the lumbar spine was obtained without intravenous contrast. Comparison: CT abdomen pelvis 01/23/2023 Findings: The conus medullaris ends normally. Mild dextrocurvature. The vertebral body heights are well maintained. There is no aggressive bone marrow signal abnormality. Loss at L5-S1. L1-L2: No significant disc bulge. Mild facet arthropathy. No neuroforaminal or spinal canal stenosis L2-L3: Small disc bulge. Mild right and moderate left facet arthropathy Mild spinal canal stenosis. No neuroforaminal stenosis. L3-L4: Small disc bulge. Moderate facet arthropathy. Ligamentum flavum thickening. Prominent posterior epidural fat. Severe spinal canal stenosis. Moderate bilateral neuroforaminal stenosis. L4-L5: Minimal anterolisthesis of L4 on L5 secondary to advanced facet arthropathy. Small disc bulge. No neuroforaminal or spinal canal stenosis. L5-S1: Small disc bulge. Mild facet arthropathy. Mild left neuroforaminal stenosis. No spinal canal stenosis. Visualized paravertebral soft tissues appear within normal limits as visualized. Report Ordering Provider: Brooke ELIZALDE FINAL REPORT Dictated: 11/27/2023 11:51 am Bharat Rose DO Signed (Electronic Signature): 11/27/2023 11:51 am Signed by: Bharat Rose DO Transcribed by: PREMA Technologist: JINA Technical Comments None [facility] Consent for Treatmenton 10-31 Consent for Treatment [id number]#[id number] IFF [facility] RAD - MRI Screening Formon 0 11-24-2023 RAD - MRI Screening Form [id number]#[id number] FF [facility] XR Wrist 3+ Views Lefton XR Wrist 3+ Views Left Exam Date/Time: 11/24/2023 13:32 EST Reason for Exam: [id number];Pain, Non Traumatic Report IMPRESSION: MILD DEGENERATIVE CHANGE LEFT FIRST CARPOMETACARPAL JOINT. AGE-INDETERMINATE AVULSION CHIP FRACTURE DISTAL LEFT ULNA. EXAM: Left wrist, 4 views. CLINICAL HISTORY: Pain, Non Traumatic, M25.532 COMPARISON: None FINDINGS: AP, lateral, oblique and navicular views of the left wrist demonstrate no evidence of a fracture, or dislocation. Mild narrowing left first carpometacarpal joint with increased sclerosis of opposing articular surfaces. 5 x 3.5 mm ossification overlies terminus of left ulna. Age-indeterminate avulsion chip fracture distal left ulna. Ordering Provider: Brooke ELIZALDE FINAL REPORT Dictated: 11/24/2023 1:49 pm SignKris briggs MD Signed (Electronic Signature): 11/24/2023 1:49 pm Signed by: Kris Vila MD Transcribed by: PREMA Technologist: ABHI Technical Comments Radiation Dose: Ka,r in mGy = na DAP = na [facility] Family Medicine Office/Clini c Noteon 11-23-2023 Family Medicine Office/Clinic Note Chief Complaint 2 month follow up HPI Staff Patient here today for 2 month f/u. for diabetes, questions/concerns: has list refills: none Health Maintenance: Colonoscopy: 05/07/21 Dexa: 01/02/23 Mammo: 01/02/23 Pap:aged out Last Labs: 10/10/23 History of Present Illness I have reviewed and verified staff HPI to be accurate for this encounter. Tamra Crowley is a 58-year-old female who presents here today for a follow-up of chronic medical conditions. The patient's most recent labs were done in 09/2023 for her psoriasis. Her thyroid and cholesterol were within normal limits. Her cholesterol was 100 mg/dL higher than 70 mg/dL, their desired result. She is currently taking atorvastatin 40 mg for her cholesterol. She denies any side effects from the medication. She denies any chest pain or heart palpitations. The patient is currently taking furosemide for her fluid retention. She states that she can sit there and shake her foot back and forth and she can feel there is still fluid more. She states that she does not notice it in her ankles like she does, but she feels it in her toe. She states that she started taking Jardiance and she did not notice a difference when she started taking it for less fluid. She mentioned that her blood sugar level is running anywhere between 167 mg/dL, I had a 150 mg/dL no I had a 138 mg/dL yesterday, 11/19/2023 and 150 mg/dL. The patient states that she has been having problems with her right leg from her foot. She states that it has been numb since 2007. She states that she is having a hard time driving now because it is numb. She states that she is not driving right now. She states that her father drove her here, but it is driving her nuts because she can not go to different places and his father will 90 years old. She states that putting the foot down for the gas is fine, but when it comes to lifting up to put on the brake, it feels like it goes up and numb so bad. She states that she was told that it has to do with her back. She states that she has not had an MRI for a while. She denies any loss of control over her bowels or bladder. The patient states that she has had numbness and tingling of her hands for a while. She states that her left wrist is the weakest. She states that she can not hold it very long. She denies any burning or numbness in the hands or fingers. She states that she has numbness on the tips of her fingers. She states that she is right-handed. The patient states that she does not see a vat house supervisor. She states that she needs to find a new vat house supervisor and states that she is still taking Tremfya for her psoriasis. She states that she sees her line producer every 3 to 6 months. She states that she does not smoke. She denies any secondhand smoke. She states that she has not been in the hospital or in the ER for any lung infections. She denies any increased cough. The patient is up to date on her eye exam and mentions that he was last seen seeing Dr. Wood before . According to her, the physician compensation analyst asked her to take the eyedrops at nighttime because her eyes seems to dry out. She did do her foot exam today, 11/20/2023. Her urine test is done in 12/2022 previously, she will have it next time. She must use insulin to control insulin. The patient uses Anoro Ellipta daily, but she does states this is not every day. Her goal is to minimize ER visits and hospitalizations. Patient has not had any of those. The patient is on atorvastatin 40 mg a day. Her LDL is at 100 mg/dL. She is immunosuppressant due to medications. I tried to encourage her to have a flu shot, but she declined told her that because of her medications, she has more susceptible infection. She encouraged to work on weight loss with diet, which is a challenge due to her financial status. As far as activity goes, she has difficulty walking due to lumbar radiculopathy, spinal stenosis, etc. She follows with dermatology and uses Tremfya. The patient is having financial insecurity. She is having difficulty paying for her gas. She has talked to [facility] and is going to talk to [facility] and is going to appeal to the sikh to see if she can get some help paying for her bill until he kicks in in 11/2023. The patient is up to date on her eye exam and mentions that he was last seen seeing Dr. Wood before . According to her, the physician compensation analyst asked her to take the eyedrops at nighttime because her eyes seems to dry out. She did do her foot exam today, 11/20/2023. Her urine test is done in 12/2022 previously, she will have it next time. She must use insulin to control insulin. The patient uses Anoro Ellipta daily, but she does states this is not every day. Her goal is to minimize ER visits and hospitalizations. Patient has not had any of those. Her lungs oxygen level was 96 percent. She encouraged to work on weight loss with diet, which is a challenge due to her financial status. She has difficulty walking due to nahum (more content not included)... [facility] Comment on above: Result Comment: Elec tronically Signed By: Brooke ELIZALDE MD\.br\Date and Time Signed: 11/23/23 09:55 EST\.br\Electronically Co-Signed By: Glen Rutherford\.br\Date and Time Co-Signed: 11/20/23 17:49 EST Outside Diabetes Eye Examon 11-23-2023 Outside Diabetes Eye Exam [id number]#1.00T IFF [facility] Physician Referralon 024 Physician Referral [id number] 0TIFF [facility] Ambulatory Visit Summaryon 0 11-20-2023 Ambulatory Visit Summary TAMRA GRIDER :1965 Visit Date:11/20/2023 Ambulatory Visit Instructions Your Diagnosis Diabetes type 2, uncontrolled Type 2 diabetes mellitus with hypertriglyceridemia Long-term insulin use COPD mixed type Atherosclerosis of abdominal aorta Mixed hyperlipidemia Immunosuppression Morbid obesity due to excess calories Psoriasis BMI 45.0-49.9, adult Former smoker Right leg weakness Lumbar radiculopathy Spinal stenosis Left wrist pain Financial insecurity Pure hyperglyceridemia Your Care Team Attending Physician - Brooke ELIZALDE MD Primary Care Physician - Brooke ELIZALDE MD This Is Your Medications List Contact prescribing physician if questions or concerns Misc Prescription (Test Strips) Misc Prescription (lancets) Misc Prescription (pen needles 6mm, 31 g) atorvastatin (atorvastatin 40 mg Tab) betamethasone-clotrimaz ole topical (betamethasone-clotrima zole Top 0.05%-1% Crm 15 gram) clindamycin (clindamycin 150 mg Cap) dulaglutide (Trulicity Pen 4.5 mg/0.5 mL subcutaneous solution) empagliflozin (Jardiance 10 mg oral tablet) famotidine (famotidine 20 mg Tab) furosemide (Lasix 20 mg Tab) guselkumab (Tremfya One-Press 100 mg/mL subcutaneous solution) ibuprofen (ibuprofen 800 mg Tab) insulin aspart (NovoLOG FlexPen 100 units/mL injectable solution) insulin detemir (Levemir FlexTouch 100 units/mL subcutaneous solution) naproxen (Naprosyn 500 mg Tab) umeclidinium-vilanterol (Anoro Ellipta 62.5 mcg-25 mcg inhalation powder) zinc sulfate (Zinc) Procedures Performed Colonoscopy (05/07/2021), Colonoscopy (05/07/2021), Colonoscopy (05/10/2016), Laparotomy (2014), Hernia repair (2011), Appendectomy;., History of total hysterectomy, MULTIPLE HERNIA REPAIRS. Discharge Vitals Heart Rate (Peripheral) 97 Blood Pressure 138/78 Height 168 cm Height 66 in Weight 133.9 kg Weight 294.58 lb BMI 47.44 What to do next Scheduled Follow-Up Appointments Monday 1:00 PM EDT With: Brooke ELIZALDE MD Where: [facility] Interpretation Code [address] [place] [address]- \.br\ You Need to Schedule the Following Appointments\.br \ Follow Up with Brooke ELIZALDE MD, [facility] When: In 3 months\.br\ Where:\.br\ \.br\ You Need to Complete the Following\.br\ MRI Spine Lumbar w/o Contrast, 11/20/23, Routine, Order for Future Visit, Transport Mode: Cart, Reason: Spinal stenosis, No, No, Right leg weakness [facility] Insurance Correspondenceon 0 11-20-2023 Insurance Correspondence [id number]#[id number] IFF [facility] Patient Educationon 11-20-19 Patient Education Endocrinology Diabetes Mellitus and Nutrition, Adult When you have diabetes, or diabetes mellitus, it is very important to have healthy eating habits because your blood sugar (glucose) levels are greatly affected by what you eat and drink. Eating healthy foods in the right amounts, at about the same times every day, can help you: ? Manage your blood glucose. ? Lower your risk of heart disease. ? Improve your blood pressure. ? Reach or maintain a healthy weight. What can affect my meal plan? Every person with diabetes is different, and each person has different needs for a meal plan. Your health care provider may recommend that you work with a dietitian to make a meal plan that is best for you. Your meal plan may vary depending on factors such as: ? The calories you need. ? The medicines you take. ? Your weight. ? Your blood glucose, blood pressure, and cholesterol levels. ? Your activity level. ? Other health conditions you have, such as heart or kidney disease. How do carbohydrates affect me? Carbohydrates, also called carbs, affect your blood glucose level more than any other type of food. Eating carbs raises the amount of glucose in your blood. It is important to know how many carbs you can safely have in each meal. This is different for every person. Your dietitian can help you calculate how many carbs you should have at each meal and for each snack. How does alcohol affect me? Alcohol can cause a decrease in blood glucose (hypoglycemia), especially if you use insulin or take certain diabetes medicines by mouth. Hypoglycemia can be a life-threatening condition. Symptoms of hypoglycemia, such as sleepiness, dizziness, and confusion, are similar to symptoms of having too much alcohol. ? Do not drink alcohol if: ? Your health care provider tells you not to drink. ? You are , may be , or are planning to become . ? If you drink alcohol: ? Limit how much you have to: ? 0?1 drink a day for women. ? 0?2 drinks a day for men. ? Know how much alcohol is in your drink. In the [place] one drink equals one 12 oz bottle of beer (355 mL), one 5 oz glass of wine (148 mL), or one 1? oz glass of hard liquor (44 mL). ? Keep yourself hydrated with water, diet soda, or unsweetened iced tea. Keep in mind that regular soda, juice, and other mixers may contain a lot of sugar and must be counted as carbs. What are tips for following this plan? Reading food labels ? Start by checking the serving size on the Nutrition Facts label of packaged foods and drinks. The number of calories and the amount of carbs, fats, and other nutrients listed on the label are based on one serving of the item. Many items contain more than one serving per package. ? Check the total grams (g) of carbs in one serving. ? Check the number of grams of saturated fats and trans fats in one serving. Choose foods that have a low amount or none of these fats. ? Check the number of milligrams (mg) of salt (sodium) in one serving. Most people should limit total sodium intake to less than 2,300 mg per day. ? Always check the nutrition information of foods labeled as low-fat or nonfat. These foods may be higher in added sugar or refined carbs and should be avoided. ? Talk to your dietitian to identify your daily goals for nutrients listed on the label. Shopping ? Avoid buying canned, pre-made, or processed foods. These foods tend to be high in fat, sodium, and added sugar. ? Shop around the outside edge of the grocery store. This is where you will most often find fresh fruits and vegetables, bulk grains, fresh meats, and fresh dairy products. Cooking ? Use low-heat cooking methods, such as baking, instead of high-heat cooking methods, such as deep frying. ? Cook using healthy oils, such as olive, canola, or sunflower oil. ? Avoid cooking with butter, cream, or high-fat meats. Meal planning ? Eat meals and snacks regularly, preferably at the same times every day. Avoid going long periods of time without eating. ? Eat foods that are high in fiber, such as fresh fruits, vegetables, beans, and whole grains. ? Eat 4?6 oz (112?168 g) of lean protein each day, such as lean meat, chicken, fish, eggs, or tofu. One ounce (oz) (28 g) of lean protein is equal to: ? 1 oz (28 g) of meat, chicken, or fish. ? 1 egg. ? ? cup (62 g) of tofu. ? Eat some foods each day that contain healthy fats, such as avocado, nuts, seeds, and fish. What foods should I eat? Fruits Berries. Apples. Oranges. Peaches. Apricots. Plums. Grapes. Mangoes. Papayas. Pomegranates. Kiwi. Cherries. Vegetables Leafy greens, including lettuce, spinach, kale, chard, lesley greens, mustard greens, and cabbage. Beets. Cauliflower. Broccoli. Carrots. Green beans. Tomatoes. Peppers. Onions. Cucumbers. Almo sprouts. Grains Whole grains, such as whole-wheat or whole-grain bread, crackers, tortillas, cereal, and pasta. Unsweetened oatmeal. (more content not included)... [facility] Quantiferon-TB Plus (Client Incubated)on 10-12-2023 Gamma interferon background IA Qn (Bld) 0.01 International_Unit/mL Invalid Interpretation Code [facility] Comment on above: Performed By: #### 1 [id number], [id number] ####[facility] [address] [place] [id number] M. tuberculosis stim IFN-g by CD4+ CD8+ T-cells Qn (Bld) 0.02 International_Unit/mL Invalid Interpretation Code [facility] Comment on above: Performed By: #### 1 [id number], [id number], [id number] ####[facility] [address] [place] [address] M. tuberculosis stim IFN-g by CD4+ T-cells Qn (Bld) 0.02 International_Unit/mL Invalid Interpretation Code [facility] Comment on above: Performed By: #### 1 [id number], [id number], [id number], [id number] ####[facility] [address] [place] [address] M. tuberculosis stim IFN-g Ql (Bld) [Interp] Negative Invalid Interpretation Code Negative [facility] Comment on above: Result Comment: No r esponse to M tuberculosis antigens detected. Infection with M tuberculosis is unlikely, but high risk individuals should be considered for additional testing (ATS/IDSA/CDC Clinical Practice Guidelines, 2017). The reference range is an Antigen minus Nil result of <0.35 IU/mL. The specimen received for QuantiFERON testing was incubated by the ordering institution. Specific procedures outlined in our Directory of Services and in the package insert for the QuantiFERON Gold (In Tube) test must be followed to enable for proper stimulation of cells for the production of interferon gamma. Chemiluminescence immunoassay methodology Performed at: [facility] [address] [id number] PhD Samira Hdez Performed By: #### 1 [id number], [id number], [id number], [id number] ####[facility] [address] [place] [address] Mitogen stimulated gamma interferon Qn (Bld) >10.00 Invalid Interpretation Code [facility] Comment on above: Performed By: #### 1 [id number], [id number], [id number], [id number] ####[facility] [address] [place] [address] Service comment (Unsp spec) [Interp] Comment Invalid Interpretation Code [facility] Comment on above: Result Comment: Amando tiFERON-TB Gold Plus is a qualitative indirect test for M tuberculosis infection (including disease) and is intended for use in conjunction with risk assessment, radiography, and other medical and diagnostic evaluations. The QuantiFERON-TB Gold Plus result is determined by subtracting the Nil value from either TB antigen (Ag) value. The Mitogen tube serves as a control for the test. Performed By: #### 1 [id number], [id number], [id number], [id number] ####[facility] [address] [place] [address] VALE w/Reflex if POSon 2022 Nuclear Ab Ql (S) Negative Invalid Interpretation Code Negative [facility] Comment on above: Result Comment: Perf ormed at: [facility] [address] [id number] PhD Samira Hdez Performed By: #### 2 965563, 0057157, 5189942, 6491069, [id number], 3028019, [id number] ####[facility] [address] [place] [address] RF Quanton 10-11-2023 Rheumatoid factor Qn 16.3 International_Unit/mL High <14.0 [facility] Comment on above: Result Comment: Perf ormed at: [facility] [address] [place], [place] [id number] PhD Samira Hdez Performed By: #### 2 [id number], 4663330, 8999242, 3981283, 74358443, 1458537, [id number] ####[facility] [address] [place] [address] Auto Diffon 10-10-2023 Basophils/100 WBC (Bld) 0.5 % Normal 0.0-2.0 [facility] Comment on above: Order Comment: Order Added by Discern Expert. Performed By: #### 2 696527, 6043463, 1660789, 2541653, 01600179, 4756529, [id number] #### [facility] [address] [place] [address] Basophils/Leukocytes Auto (Bld) [Pure # fraction] 0.0 E9/L Normal 0.0-0.2 [facility] Comment on above: Order Comment: Order Added by Discern Expert. Performed By: #### 2 911000, 2453576, 3114494, 9579086, 78436390, 9174117, [id number] #### [facility] [address] [place] [address] Eosinophils/100 WBC (Bld) 2.2 % Normal 0.0-8.0 [facility] Comment on above: Order Comment: Order Added by Discern Expert. Performed By: #### 2 955728, 1178624, 9651060, 0419142, [id number], 8726416, [id number] #### [facility] [address] [place] [address] Eosinophils/Leukocyt es Auto (Bld) [Pure # fraction] 0.2 E9/L Normal 0.0-0.5 [facility] Comment on above: Order Comment: Order Added by Discern Expert. Performed By: #### 2 654303, 4326306, 0285644, 9224449, 60455609, 4478345, [id number] #### [facility] [address] [place] [address] Lymphocytes/100 WBC (Bld) 20.0 % Normal 14.0-50.0 [facility] Comment on above: Order Comment: Order Added by Discern Expert. Performed By: #### 2 574021, 3748761, 1429679, 8958830, 44029720, 0276027, [id number] #### [facility] [address] [place] [address] Lymphocytes/Leukocyt es Auto (Bld) [Pure # fraction] 1.4 E9/L Normal 1.0-4.0 [facility] Comment on above: Order Comment: Order Added by Discern Expert. Performed By: #### 2 349718, 7671203, 7210848, 8521975, 75659968, 5708511, 44656450 #### [facility] [address] [place] [address] Monocytes/100 WBC (Bld) 6.4 % Normal 4.0-14.0 [facility] Comment on above: Order Comment: Order Added by Discern Expert. Performed By: #### 2 698339, 9824061, 1177376, 9952902, 32396457, 3541287, [id number] #### [facility] Laboratory [address] [place] [address] [id number] Monocytes/Leukocytes Auto (Bld) [Pure # fraction] 0.4 E9/L Normal 0.2-1.0 [facility] Comment on above: Order Comment: Order Added by Discern Expert. Performed By: #### 2 327991, 1055248, 7896028, 6260423, 73479309, 0622550, [id number] #### [facility] [address] [place] [address] Neutrophils/100 WBC (Bld) 70.9 % Normal 36.0-75.0 [facility] Comment on above: Order Comment: Order Added by Discern Expert. Performed By: #### 2 946410, 7701555, 3756833, 8490133, 04020835, 8401505, 56163411 #### [facility] [address] [place] [address] Neutrophils/Leukocyt es Auto (Bld) [Pure # fraction] 4.9 E9/L Normal 2.0-7.5 [facility] Comment on above: Order Comment: Order Added by Discern Expert. Performed By: #### 2 932056, 4435459, 4885035, 5039090, 01424359, 7959437, 72459145 #### [facility] [address] [place] [address] 40557 CBC w/ Auto Diffon 3 Erythrocyte distribution width (RBC) [Ratio] 15.1 % High 10.9-14.2 [facility] Comment on above: Performed By: #### 2 947931, 5954547, 2647873, 2164754, 19984181, 3709505, 12153913 #### [facility] [address] [place] [address] 21887 Hematocrit (Bld) [Volume fraction] 43.1 % Normal 34.0-46.0 [facility] Comment on above: Performed By: #### 2 354598, 2955695, 1414311, 1946493, 57184734, 8909819, 72380925 #### [facility] [address] [place] [address] 14967 Hemoglobin (Bld) [Mass/Vol] 14.5 g/dL Normal 12.0-16.0 [facility] Comment on above: Performed By: #### 2 892374, 8414401, 3179370, 4739046, 48536999, 4168296, 29125046 #### [facility] [address] [place] [address] 38586 MCH (RBC) [Entitic mass] 30.1 pg Normal 27.0-34.0 [facility] Comment on above: Performed By: #### 2 478618, 3073511, 6695007, 3701769, 45610811, 8622766, 10412751 #### [facility] [address] [place], [place] [address] MCHC (RBC) [Mass/Vol] 33.7 g/dL Normal 31.4-36.0 [facility] Comment on above: Performed By: #### 2 413229, 4082509, 1944519, 4600425, 29707907, 0109850, 61349254 #### [facility] [address] [place], [place] [address] MCV (RBC) [Entitic vol] 89.3 fL Normal 80.0-100.0 [facility] Comment on above: Performed By: #### 2 421357, 6560285, 0289233, 9332191, 58327394, 3662416, 67378094 #### [facility] [address] [place] [address] 82031 Platelet mean volume (Bld) [Entitic vol] 8.9 fL Normal 6.4-10.8 [facility] Comment on above: Performed By: #### 2 816540, 0284302, 8871742, 9701496, 61631589, 5570761, 51033789 #### [facility] [address] [place] [address] 33356 Platelets (Bld) [#/Vol] 344.0 E9/L Normal 150.0-500.0 [facility] Comment on above: Performed By: #### 2 945891, 6447680, 3387555, 5529590, 39305231, 3082869, 08985333 #### [facility] [address] [place] [address] 74906 RBC (Bld) [#/Vol] 4.8 E12/L Normal 4.3-5.9 [facility] Comment on above: Performed By: #### 2 336227, 6555451, 4300899, 4687309, 25943397, 8355065, 54862628 #### [facility] [address] [place] [address] WBC corrected for nucl RBC Auto (Bld) [#/Vol] 6.8 E9/L Normal 4.0-11.0 [facility] Comment on above: Performed By: #### 2 323764, 5062042, 8136773, 1973634, 57318871, 9642194, 64633589 #### [facility] [address] [place] [address] CHEMISTRYOrdered By: SYSTEM SYSTEM on 10-10-2023 Albumin [Mass/Vol] 3.8 g/dL Normal 3.3 - 5.0 gm/dL R emisol Chem Albumin/Globulin [Mass ratio] 1.2 {ratio} Normal 1.1 - 2.2 [facility] Alk Phos 71 [iU]/d Normal 21 - 98 Int._Unit/L [facility] ALT 39 [iU]/d Normal 6 - 46 Int._Unit/L [facility] Anion gap [Moles/Vol] 13 mmol/L Normal 6 - 16 mEq/L [facility] AST 31 [iU]/d Normal 5 - 43 Int._Unit/L [facility] Bili Total 0.6 mg/dL Normal 0.0 - 1.1 mg/dL [facility] Calcium [Mass/Vol] 8.9 mg/dL Normal 8.9 - 11.1 mg/dL [facility] Chloride [Moles/Vol] 102 mmol/L Normal 101 - 111 mmol/ L [facility] Cholesterol [Mass/Vol] 159 mg/dL Normal 120 - 200 mg/dL [facility] Cholesterol in HDL [Mass/Vol] 42 mg/dL Invalid Interpretation Code [facility] Comment on above: Result Comment: '>= 60 LOW RISK' '<= 40 HIGH RISK' Cholesterol in LDL [Mass/Vol] 99 mg/dL Normal <=129mg/dL [facility] Cholesterol in VLDL [Mass/Vol] 27 mg/dL Normal 7 - 40 mg/dL [facility] CO2 [Moles/Vol] 27 mmol/L Normal 21 - 31 mmol/L Remis ol Chem Creatinine [Mass/Vol] 0.8 mg/dL Normal 0.5 - 1.3 mg/dL [facility] eGFR mL/min/1.73 m2 Normal >=59mL/min/1. 73 m2 [facility] Globulin (S) [Mass/Vol] 3.1 g/dL Normal 1.4 - 4.0 gm/dL [facility] Glucose [Mass/Vol] 164 mg/dL Normal 55 - 199 mg/dL Re misol Chem Potassium [Moles/Vol] 3.9 mmol/L Normal 3.5 - 5.3 mmol/L [facility] Protein [Mass/Vol] 6.9 g/dL Normal 6.0 - 7.8 gm/dL R emisol Chem Sodium [Moles/Vol] 138 mmol/L Normal 135 - 145 mmol/L [facility] Triglyceride [Mass/Vol] 136 mg/dL Normal <=149mg/dL [facility] Urea nitrogen [Mass/Vol] 10 mg/dL Normal 5 - 21 mg/dL [facility] Urea nitrogen/Creatinine [Mass ratio] 12 mg/mg Normal 10 - 20 [facility] Cholesterol [Mass/Vol] 160 mg/dL Normal 120 - 200 mg/dL [facility] Cholesterol in HDL [Mass/Vol] 42 mg/dL Invalid Interpretation Code [facility] Comment on above: Result Comment: '>= 60 LOW RISK' '<= 40 HIGH RISK' Cholesterol in LDL [Mass/Vol] 100 mg/dL Normal <=129mg/dL [facility] Cholesterol in VLDL [Mass/Vol] 27 mg/dL Normal 7 - 40 mg/dL [facility] CRP 1.0 mg/dL Normal <=1.9mg/dL [facility] Triglyceride [Mass/Vol] 136 mg/dL Normal <=149mg/dL [facility] TSH Qn 2.17 m[IU]/L Normal 0.34 - 5.60 mcIU/mL Rem[facility] CMPon 10-10-2023 Albumin [Mass/Vol] 3.8 g/dL Normal 3.3-5.0 [facility] Comment on above: Performed By: #### 1 2480552, 2975047, 9370159521, 7376166 ####[facility] [address] [place] [address] Albumin/Globulin [Mass ratio] 1.2 {ratio} Normal 1.1-2.2 [facility] Comment on above: Performed By: #### 1 1230728, 0224677, [id number], 0571908 ####[address] [place] [address] Alk Phos 71 Int._Unit/L Normal 21-98 [facility] Comment on above: Performed By: #### 1 4668120, 9104291, 7339806514, 2505383 ####[address] [address] ALT 39 Int._Unit/L Normal 6-46 [facility] Comment on above: Performed By: #### 1 8694828, 0583420, 3164184715, 5482480 ####[address] [address] Anion gap [Moles/Vol] 13 mmol/L Normal 6-16 [facility] Comment on above: Performed By: #### 1 0456398, 7334814, 2701166036, 8310175 ####[address] [address] AST 31 Int._Unit/L Normal 5-43 [facility] Comment on above: Performed By: #### 1 8249633, 7265048, 3394861794, 3710061 ####[address] [address] Bili Total 0.6 mg/dL Normal 0.0-1.1 [facility] Comment on above: Performed By: #### 1 3138833, 6502017, 4772626803, 6505432 ####[address] [place] [address] BUN/Creat Ratio 12 No Units Normal 10-20 [facility] Comment on above: Performed By: #### 1 9170468, 6889384, 5359532992, 4093089 ####[facility] [address] [place] [address] Calcium [Mass/Vol] 8.9 mg/dL Normal 8.9-11.1 [facility] Comment on above: Performed By: #### 1 6486569, 2549339, 1828716561, 9137596 ####[facility] [address] [place] [address] Chloride [Moles/Vol] 102 mmol/L Normal 101-[address] [facility] Comment on above: Performed By: #### 1 9579081, 5079756, 0323812820, 4793116 ####[address] [place] [address] CO2 [Moles/Vol] 27 mmol/L Normal 21-31 [facility] Comment on above: Performed By: #### 1 9537850, 6847047, 8020160211, 9648132 ####[facility] [address] [place] [address] Creatinine [Mass/Vol] 0.8 mg/dL Normal 0.5-1.3 [facility] Comment on above: Performed By: #### 1 8578151, 8409685, 0525967256, 5614773 ####[facility] [address] [place] [address] Globulin (S) [Mass/Vol] 3.1 g/dL Normal 1.4-4.0 [facility] Comment on above: Performed By: #### 1 2372527, 0755060, 7300518847, 5042036 ####[facility] [address] [place] [address] Glucose [Mass/Vol] 164 mg/dL Normal 55-199 [facility] Comment on above: Performed By: #### 1 9308880, 7899167, 6870369000, 9593508 ####[facility] [address] [place] [address] Potassium [Moles/Vol] 3.9 mmol/L Normal 3.5-5.3 [facility] Comment on above: Performed By: #### 1 0816735, 4748283, 2637822941, 4055698 ####[facility] [address] [place] [address] Protein [Mass/Vol] 6.9 g/dL Normal 6.0-7.8 [facility] Comment on above: Performed By: #### 1 4939279, 2151035, 4799229719, 3778432 ####[facility] [address] [place] [address] Sodium [Moles/Vol] 138 mmol/L Normal 135-145 [facility] Comment on above: Performed By: #### 1 0062793, 1027068, 3235474470, 4916656 ####[facility] [address] [place] [address] Urea nitrogen [Mass/Vol] 10 mg/dL Normal 5-21 [facility] Comment on above: Performed By: #### 1 6357516, 2119277, 8011504452, 3356031 ####[facility] [address] [place] [address] CRPon 10-10-2023 CRP 1.0 mg/dL Normal <=1.9 [facility] Comment on above: Performed By: #### 2 448015, 9652778, 4586366, 8066395, 91713242, 0592810, 85306736 ####[facility] [address] [place] [address] Consent for Treatmenton 09-29 Consent for Treatment [id number]#1.00T IFF Normal [facility] Consent for Treatment [id number]#1.00T IFF Normal [facility] HEMATOLOGYOrdered By: SYSTEM SYSTEM on 10-10-2023 Basophils/100 WBC (Bld) 0.5 % Normal 0.0 - 2.0 % [facility] Basophils/Leukocytes Auto (Bld) [Pure # fraction] 0.0 E9/L Normal 0.0 - 0.2 E9/L [facility] Eosinophils/100 WBC (Bld) 2.2 % Normal 0.0 - 8.0 % [facility] Eosinophils/Leukocyt es Auto (Bld) [Pure # fraction] 0.2 E9/L Normal 0.0 - 0.5 E9/L [facility] Lymphocytes/100 WBC (Bld) 20.0 % Normal 14.0 - 50.0 % [facility] Lymphocytes/Leukocyt es Auto (Bld) [Pure # fraction] 1.4 E9/L Normal 1.0 - 4.0 E9/L [facility] Monocytes/100 WBC (Bld) 6.4 % Normal 4.0 - 14.0 % [facility] Monocytes/Leukocytes Auto (Bld) [Pure # fraction] 0.4 E9/L Normal 0.2 - 1.0 E9/L [facility] Neutrophils/100 WBC (Bld) 70.9 % Normal 36.0 - 75.0 % [facility] Neutrophils/Leukocyt es Auto (Bld) [Pure # fraction] 4.9 E9/L Normal 2.0 - 7.5 E9/L [facility] HEMATOLOGYOrdered By: Camilla dwyer on 10-10-2023 Erythrocyte distribution width (RBC) [Ratio] 15.1 % High 10.9 - 14.2 % [facility] Hematocrit (Bld) [Volume fraction] 43.1 % Normal 34.0 - 46.0 % [facility] Hemoglobin (Bld) [Mass/Vol] 14.5 g/dL Normal 12.0 - 16.0 gm/dL [facility] MCH (RBC) [Entitic mass] 30.1 pg Normal 27.0 - 34.0 pg [facility] MCHC (RBC) [Mass/Vol] 33.7 g/dL Normal 31.4 - 36.0 gm/dL [facility] MCV (RBC) [Entitic vol] 89.3 fL Normal 80.0 - 100.0 fL [facility] Platelet mean volume (Bld) [Entitic vol] 8.9 fL Normal 6.4 - 10.8 fL [facility] Platelets (Bld) [#/Vol] 344.0 E9/L Normal 150.0 - 500.0 E9/L [facility] RBC (Bld) [#/Vol] 4.8 E12/L Normal 4.3 - 5.9 E12/L [facility] WBC corrected for nucl RBC Auto (Bld) [#/Vol] 6.8 E9/L Normal 4.0 - 11.0 E9/L [facility] Lipid Panelon 10-10-2023 Cholesterol [Mass/Vol] 160 mg/dL Normal 120-200 [facility] Comment on above: Performed By: #### 2 838202, 8136483, 8207858, 1101078, 87406252, 1485386, 99166333 ####[facility] [address] [place] [address] Cholesterol in HDL [Mass/Vol] 42 mg/dL Invalid Interpretation Code [facility] Comment on above: Result Comment: '>= 60 LOW RISK' '<= 40 HIGH RISK' Performed By: #### 2 453498, 3758269, 5762291, 2068421, 44470223, 5077546, 81006683 ####[facility] [address] [place] [address] Cholesterol in LDL [Mass/Vol] 100 mg/dL Normal <=129 [facility] Comment on above: Performed By: #### 2 376673, 3763178, 6932371, 9581325, 88795538, 0815421, 86554656 ####[facility] [address] [place] [address] Cholesterol in VLDL [Mass/Vol] 27 mg/dL Normal 7-40 [facility] Comment on above: Performed By: #### 2 161429, 3244537, 3569890, 2505878, 92370234, 6131126, 43894354 ####[facility] [address] [place] [address] Triglyceride [Mass/Vol] 136 mg/dL Normal <=149 [facility] Comment on above: Performed By: #### 2 132477, 9499100, 4291955, 3079228, 25068701, 1666851, 44951837 ####[facility] [address] [place] [address] Cholesterol [Mass/Vol] 159 mg/dL Normal 120-200 [facility] Comment on above: Performed By: #### 1 7059450, 8224802, 0997344591, 2938754 ####[facility] [address] [place] [address] Cholesterol in HDL [Mass/Vol] 42 mg/dL Invalid Interpretation Code [facility] Comment on above: Result Comment: '>= 60 LOW RISK' '<= 40 HIGH RISK' Performed By: #### 1 8170796, 6681388, 3487876768, 4407468 ####[facility] [address] [place] [address] Cholesterol in LDL [Mass/Vol] 99 mg/dL Normal <=129 [facility] Comment on above: Performed By: #### 1 9945871, 6496343, 6214539938, 7032829 ####[facility] [address] [place] [address] Cholesterol in VLDL [Mass/Vol] 27 mg/dL Normal 7-40 [facility] Comment on above: Performed By: #### 1 5480083, 1998422, 7234401016, 0847663 ####[facility] [address] [place] [address] Triglyceride [Mass/Vol] 136 mg/dL Normal <=149 [facility] Comment on above: Performed By: #### 1 8777465, 6601817, 7994013702, 7550201 ####[facility] [address] [place] [address] Physician Orderon 10-10-2023 Physician Order [id number]#1.00 TIFF Normal [facility] TSHon 10-10-2023 TSH Qn 2.17 m[IU]/L Normal 0.34-5.60 [facility] Comment on above: Performed By: #### 2 794844, 5029670, 8596971, 9796458, 14620556, 3672344, 49988703 ####[facility] [address] [place] [address] eGFRon 10-10-2023 GFR/1.73 sq M.predicted among non-blacks MDRD (S/P/Bld) [Vol rate/Area] mL/min/{1.73_m2} Normal >=59 [facility] Comment on above: Order Comment: Order added by Discern Expert. Performed By: #### 1 2963215, 3370306, 9974040434, 0629153 ####[facility] [address] [place] [address] Family Medicine Office/Clini c Noteon 08-06-2023 Family Medicine Office/Clinic Note Chief Complaint 6 month follow up HPI Staff Patient here today for 6 month follow up. do point of care hgba1c hyperlipidemia: stable on atorvastatin Patient is here for follow up on Diabetes. How often are you checking your blood sugars? 1 times per day sometimes What are your average readings? 200 Do you have any of the following symptoms? Foot Exam: 12/30/22 Eye Exam: 09/14/22 Microalbumin: U Microalb: 110.2 mcg/mL High (12/30/22 14:56:00) Last A1C: Hgb A1C %: 8.7 % High (10/14/22 11:22:00) Hgb A1c POC: 8.3 % (12/30/22 14:52:00) Follow up for Mental Status: Medication adherence- Yes, takes medication as prescribed MEdication refill needed: _ Suicidal thoughts-Not at this time Most recent JEFE: Most recent PHQ: Health Maintenance: Colonoscopy: 05/07/21 Dexa: 01/02/23 Mammo: 01/02/23 Pap: hx hysterectomy Last Labs: 10/14/22 History of Present Illness I have reviewed and verified staff HPI to be accurate for this encounter. Tamra Crowley is a 58-year-old female who presents here today for a follow-up of chronic medical conditions. The patient has chosen not to receive the flu vaccine. She has not received her COVID-19 booster vaccine. She checks her blood sugar levels daily at home and once recorded a reading of 200 mg/dL. She is adhering to her medication regimen, which includes Trulicity 4.5 mg once a week, Levemir 18 units daily, and another insulin medication taken twice daily, the name of which she cannot remember. She previously took metformin but stopped due to diarrhea episodes. She also had yeast infections. She had an eye examination with Dr. Wood in 08/2022. During a recent visit, she learned that she has an early-stage cataract in her right eye. Dr. Wood prescribed her eye drops for nightly use. She also experiences dry eyes. She was hospitalized for cellulitis and notices swelling at the bottom of her ankle when her legs are hanging down. She wonders if her psoriasis medication could be causing her infections. She experiences pain in her left arm, which is also red and swollen. The pain intensifies when she moves her arm, and she has such weakness that she struggles to move it at all. She is afraid to seek medical help for her arm because she fears being diagnosed with a heart attack. She reports having knee pain, which she believes might be due to an accident from years ago. She was on Tremfya for her psoriasis for six months but stopped taking it when she noticed it was no longer effective. She takes atorvastatin for her cholesterol levels. She occasionally uses Anoro, which should be taken daily. She has lost 12 pounds and currently weighs 12 pounds less than before. She eats whatever she wants, including hot dogs and meat. She had a disappointing experience at the dentist's office where a tooth was extracted forcefully. She was scheduled to return in 08/2023 but is unsure if she will go back. She would like to return to Dr. Keller in [place], but they are not accepting new patients as she has not visited the clinic in some time. In May 2023, she had a procedure in her mouth where stitches were applied. There was a mix-up with the appointment for stitch removal, but the stitches were removed that day. She still feels sore in the area. She is interested in getting approved for a portable scooter. She does not smoke. She has an appointment with her line producer next week. The patient has not received her flu vaccine. She has not received her COVID-19 booster. Review of Systems PHQ Score Initial Depression Screen Score: 1 Constitutional: no fever, no chills, no sweats, no weakness Respiratory: no shortness of breath, no cough, no orthopnea, no wheezing Cardiovascular: no chest pain, no palpitations, no edema Additional ROS info: Except as noted in the above Review of Systems and in the History of Present Illness all other systems have been reviewed and are negative or noncontributory. Physical Exam Vitals & Measurements HR: 97(Peripheral) BP: 126/84 SpO2: 94% HT: 66 in HT: 168 cm WT: 137.9 kg WT: 303.38 lb BMI: 48.86 GENERAL: She is a morbidly obese white female, here alone, in no apparent distress. HEENT: no abnormalities CARDIAC: Distant tones with regular rate and rhythm. LUNGS: Diminished. EXT: Nonpitting edema, trace ble She has some tenderness and some synovial thickening of her first and second McP joints. For left upper extremity, she does have full range of motion of the shoulder. SKIN: Some healing plaque psoriasis better than last visit. PSYCHIATRIC: alert and oriented x 3, normal speech and thought content, normal mood and affect Assessment/Plan 1. Type 2 diabetes mellitus with hypertriglyceridemia (E11.69: Type 2 diabetes mellitus with other specified complication) We did a point of care hemoglobin A1c today was 9.4 percent, so her control is worse. I have increased her insulin Levemir to 45 units a day and I have added Jardiance 10 mg a day (more content not included)... Normal [facility] Comment on above: Result Comment: Elec tronically Signed By: Brooke ELIZALDE MD\.br\Date and Time Signed: 08/06/23 09:32 EDT\.br\Electronically Co-Signed By: Daniella Haque\.br\Date and Time Co-Signed: 08/04/23 17:46 EDT Patient Educationon 08-04-20 Patient Education Endocrinology Diabetes Mellitus and Nutrition, Adult When you have diabetes, or diabetes mellitus, it is very important to have healthy eating habits because your blood sugar (glucose) levels are greatly affected by what you eat and drink. Eating healthy foods in the right amounts, at about the same times every day, can help you: ? Manage your blood glucose. ? Lower your risk of heart disease. ? Improve your blood pressure. ? Reach or maintain a healthy weight. What can affect my meal plan? Every person with diabetes is different, and each person has different needs for a meal plan. Your health care provider may recommend that you work with a dietitian to make a meal plan that is best for you. Your meal plan may vary depending on factors such as: ? The calories you need. ? The medicines you take. ? Your weight. ? Your blood glucose, blood pressure, and cholesterol levels. ? Your activity level. ? Other health conditions you have, such as heart or kidney disease. How do carbohydrates affect me? Carbohydrates, also called carbs, affect your blood glucose level more than any other type of food. Eating carbs raises the amount of glucose in your blood. It is important to know how many carbs you can safely have in each meal. This is different for every person. Your dietitian can help you calculate how many carbs you should have at each meal and for each snack. How does alcohol affect me? Alcohol can cause a decrease in blood glucose (hypoglycemia), especially if you use insulin or take certain diabetes medicines by mouth. Hypoglycemia can be a life-threatening condition. Symptoms of hypoglycemia, such as sleepiness, dizziness, and confusion, are similar to symptoms of having too much alcohol. ? Do not drink alcohol if: ? Your health care provider tells you not to drink. ? You are , may be , or are planning to become . ? If you drink alcohol: ? Limit how much you have to: ? 0?1 drink a day for women. ? 0?2 drinks a day for men. ? Know how much alcohol is in your drink. In the [place] one drink equals one 12 oz bottle of beer (355 mL), one 5 oz glass of wine (148 mL), or one 1? oz glass of hard liquor (44 mL). ? Keep yourself hydrated with water, diet soda, or unsweetened iced tea. Keep in mind that regular soda, juice, and other mixers may contain a lot of sugar and must be counted as carbs. What are tips for following this plan? Reading food labels ? Start by checking the serving size on the Nutrition Facts label of packaged foods and drinks. The number of calories and the amount of carbs, fats, and other nutrients listed on the label are based on one serving of the item. Many items contain more than one serving per package. ? Check the total grams (g) of carbs in one serving. ? Check the number of grams of saturated fats and trans fats in one serving. Choose foods that have a low amount or none of these fats. ? Check the number of milligrams (mg) of salt (sodium) in one serving. Most people should limit total sodium intake to less than 2,300 mg per day. ? Always check the nutrition information of foods labeled as low-fat or nonfat. These foods may be higher in added sugar or refined carbs and should be avoided. ? Talk to your dietitian to identify your daily goals for nutrients listed on the label. Shopping ? Avoid buying canned, pre-made, or processed foods. These foods tend to be high in fat, sodium, and added sugar. ? Shop around the outside edge of the grocery store. This is where you will most often find fresh fruits and vegetables, bulk grains, fresh meats, and fresh dairy products. Cooking ? Use low-heat cooking methods, such as baking, instead of high-heat cooking methods, such as deep frying. ? Cook using healthy oils, such as olive, canola, or sunflower oil. ? Avoid cooking with butter, cream, or high-fat meats. Meal planning ? Eat meals and snacks regularly, preferably at the same times every day. Avoid going long periods of time without eating. ? Eat foods that are high in fiber, such as fresh fruits, vegetables, beans, and whole grains. ? Eat 4?6 oz (112?168 g) of lean protein each day, such as lean meat, chicken, fish, eggs, or tofu. One ounce (oz) (28 g) of lean protein is equal to: ? 1 oz (28 g) of meat, chicken, or fish. ? 1 egg. ? ? cup (62 g) of tofu. ? Eat some foods each day that contain healthy fats, such as avocado, nuts, seeds, and fish. What foods should I eat? Fruits Berries. Apples. Oranges. Peaches. Apricots. Plums. Grapes. Mangoes. Papayas. Pomegranates. Kiwi. Cherries. Vegetables Leafy greens, including lettuce, spinach, kale, chard, lesley greens, mustard greens, and cabbage. Beets. Cauliflower. Broccoli. Carrots. Green beans. Tomatoes. Peppers. Onions. Cucumbers. Almo sprouts. Grains Whole grains, such as whole-wheat or whole-grain bread, crackers, tortillas, cereal, and pasta. Unsweetened oatmeal. (more content not included)... [facility] Pre-Certification Formon Pre-Certification Form [id number] D:127 [facility] Consent for Treatmenton Consent for Treatment [id number] D:127 [facility] Discharge Instructionson Discharge Instructions [id number] D:127 [facility] ED Clinical Summaryon 2022 ED Clinical Summary (Inserted Image. Anika ble to display) [place] [id number] ED Clinical Summary Person Information Name: TAMRA GRIDER [facility] Age: 58 Years : 1965 Sex: Female Language: Malaysian PCP: Brooke ELIZALDE MD Marital Status: Visit Id: Visit Reason: Skin problem; RT LEG SWOLLEN, RED, PAIN Speciality: Acuity: 4 Enc Type: Emergency Med Service: Emergency Arrival: 2023 15:01:35 Discharge: 2023 16:37:22 LOS: 000 01:36 Checkin: 2023 15:01:35 Checkout: 2023 16:37:22 Dispo Type: Home (Routine DC) EVENTS: Event Name Event Status Request Date/Time Start Date/Time Complete Date/Time Arrive Complete 2023 15:01:35 2023 15:01:35 2023 15:01:35 Document Home Meds Request 2023 15:01:35 Triage Complete 2023 15:01:35 2023 15:25:32 2023 15:25:32 Bed Assign Complete 2023 15:21:34 2023 15:21:34 2023 15:21:34 Dr Exam Complete 2023 15:21:34 2023 15:22:03 2023 15:22:03 RN Exam Complete 2023 15:21:34 2023 16:29:26 2023 16:29:26 Registration Complete 2023 15:22:03 2023 15:27:18 2023 15:27:18 Dr Exam Complete 2023 15:23:34 2023 15:23:34 2023 15:23:34 Reg Complete Request 2023 15:27:18 Reg Bed Request Complete 2023 15:27:18 2023 15:27:18 2023 15:27:18 US Complete 2023 15:42:31 2023 15:56:49 2023 16:14:27 Discharge Complete 2023 16:29:30 2023 16:37:28 2023 16:37:28 Transfer Complete 2023 16:37:28 2023 16:37:28 2023 16:37:28 ADDRESS: [address] [place] [address] [id number] PHYS DOC NOTES: MEDICAL INFORMATION: Prescriptions Given: New Medications [facility] 1987, [address] [place], [place] [id number], [phone] acetaminophen-hydrocodo ne (Vanderbilt 325 mg-5 mg oral tablet) 1 Tablets By Mouth every 6 hours as needed for pain for 3 Days. Refills: 0. acetaminophen-oxycodone (acetaminophen-oxycodon e 325 mg-5 mg Tab) 1 Tablets By Mouth every 6 hours as needed for pain for 2 Days. Refills: 0. cephalexin (Keflex 500 mg Cap) 1 Capsules By Mouth every 6 hours for 7 Days. Refills: 0. Medications to Continue with No Changes Other Medications albuterol (Ventolin HFA 90 mcg/inh Aerosol) 1 Puffs Inhalation Once as needed for wheezing. Refills: 11. atorvastatin (atorvastatin 40 mg Tab) 1 Tablets By Mouth every day. Refills: 3. betamethasone-clotrimaz ole topical (betamethasone-clotrima zole Top 0.05%-1% Crm 15 gram) Not to be used longer than 2 weeks. Refills: 5. dulaglutide (Trulicity Pen 1.5 mg/0.5 mL subcutaneous solution) 1.5 Milligram Subcutaneous every week. Refills: 3. dulaglutide (Trulicity Pen 3 mg/0.5 mL subcutaneous solution) 3 Milligram Subcutaneous every week. Refills: 3. dulaglutide (Trulicity Pen 4.5 mg/0.5 mL subcutaneous solution) 4.5 Milligram Subcutaneous every week. Refills: 3. famotidine (famotidine 20 mg Tab) 1 Tablets By Mouth 2 times a day as needed Dyspepsia. Refills: 4. furosemide (Lasix 20 mg Tab) 1 Tablets By Mouth every day. Refills: 3. ibuprofen (ibuprofen 800 mg Tab) 1 Tablets By Mouth 3 times a day as needed as needed for pain. Refills: 3. insulin aspart (NovoLOG FlexPen 100 units/mL injectable solution) 18 Units Subcutaneous before meals. before a meal. Refills: 3. insulin detemir (Levemir FlexTouch 100 units/mL subcutaneous solution) 40 Units Subcutaneous at bedtime. Refills: 4. ixekizumab (Taltz Autoinjector 80 mg/mL subcutaneous solution) Misc Prescription (lancets) test daily E11.65. Refills: 3. Misc Prescription (Lancets) 0. Box #1 Refills #5. Refills: 0. Misc Prescription (pen needles 6mm, 31 g) injects qid. and prn dx E11.65. Refills: 11. Misc Prescription (Strips for glucometer) 0. Box #1 Refeills 5. Refills: 0. Misc Prescription (Test Strips) test daily E11.65. Refills: 3. naproxen (Naprosyn 500 mg Tab) 1 Tablets By Mouth 2 times a day. Refills: 11. umeclidinium-vilanterol (Anoro Ellipta 62.5 mcg-25 mcg inhalation powder) 1 Inhalation Inhalation every day. Refills: 12. zinc sulfate (Zinc) 50 Milligram By Mouth every day. only during winter months. PATIENT EDUCATION INFORMATION: Instructions: Cellulitis, Adult, Huqo-kg-Lscf Follow up: With: Address: When: Brooke ELIZALDE [address] [place] [address] [address], [place] [phone] Business (1) In 3 days 06/08/2023 Comments: Follow-up with your primary care provider in 3 to 5 days. If symptoms worsen, do not improve, or new symptoms arise please report back to emergency department for further evaluation. DIAGNOSIS: Cellulitis of right leg [facility] ED Note-Physicianon 06-05-20 23 ED Note-Physician Basic Information Time Seen: Daniel HAMILTON, Addison Sharma 2023 15:22 Chief Complaint Pt presents to ED with complaints of right lower leg reddness onset 4 days ago. Denies fever or chills. psoriasis at baseline History of Present Illness A 58-year-old female reports emergency department with chief complaint of lower right leg redness. Reports has been warm and painful as well. Reports started 4 days ago. Denies any fevers chills nausea or vomiting with this. Denies any shortness of breath. States that she does have a history of psoriasis, which she has at baseline, but this redness is new. She reports allergy to penicillins as well as prednisone, where she gets a rash. She states that otherwise has been doing well, but has been little more painful at night when she sleeps as well. Reports she went some of her pain. Denies being on any blood thinners. Denies any history of DVTs. Review of Systems A 10 point review of systems is negative except as noted above. Medical and Surgical History: Reviewed and noted Social history: Lives at home Family History: Reviewed. Tobacco: Physical Exam Vitals & Measurements T: 36.8 ?C(Oral) HR: 92(Peripheral) RR: 18 BP: 131/71 SpO2: 98% HT: 168 cm WT: 143.3 kg BMI: 50.77 General: The patient appears well and in no apparent distress. Patient is resting comfortably in chair. Afebrile Skin: Warm, dry, no pallor noted. There are circular areas of nummular psoriasis looking the patient's bilateral lower extremities. The right lower extremity has surrounding erythema with warmth noted to palpation. Positive right-sided calf tenderness. Head: Normocephalic, atraumatic Neck: No JVD Eye: PERRLA, EOMI ENT: Moist mucus membranes Cardiovascular: Regular rate normal peripheral perfusion. Pedal pulses +2 bilaterally Respiratory: No respiratory distress no accessory muscle use no obvious audible wheezing Chest Wall: no deformity Musculoskeletal: normal ROM, no deformity, no swelling GI: No obvious distention Neurological: A&O moves all extremities equal strength and symmetry Psychiatric: Cooperative and appropriate Medical Decision Making MEDICAL DECISION MAKING Number and Complexity of Problems Differential Diagnosis: [] [facility] Data External documents reviewed: [] My EKG interpretation: [] My CT interpretation: [] My X-ray interpretation: [] My Ultrasound interpretation: Reviewed Decision rules/scores evaluated: [] Discussed with: [] Treatment and Disposition ED Course: A 58-year-old female reports to the emergency department with chief complaint of right leg warmth, redness, and and some pain. States that this been going on for 4 days. Denies any history of DVT. On physical exam, the right leg is erythematous, mildly swollen. There is neurovascularly intact. Positive for right-sided calf tenderness as well. She does have overlying psoriasis, but due to initial presentation, we did do an ultrasound to rule out any DVT. Ultrasound was negative for DVT. Discussed with the patient. Discussed his likely cellulitis. Denies any MRSA history. Patient be started on Keflex. Discussed return precautions. Follow-up with your primary care provider in 3 to 5 days. If symptoms worsen, do not improve, or new symptoms arise please report back to emergency department for further evaluation. The patient was understanding and agreeable to plan moving forward. Shared decision making: [] Code status: [] Assessment/Plan Cellulitis of right leg (L03.115: Cellulitis of right lower limb) Orders: acetaminophen-hydrocodo ne, 1 tab(s), Oral, q6hr for pain for 3 day(s), 12 tab(s), [facility]) [facility], cm, 06/05/23 15:25:00 EDT, Height/Length Dosing, 143.3, kg, 06/05/23 15:25:00 EDT, Weight Dosing acetaminophen-oxycodone , 1 tab(s), Oral, q6hr for pain for 2 day(s), 10 tab(s), Refill(s) 0, [facility] 1985, 168, cm, 06/05/23 15:25:00 EDT, Height/Length Dosing, 143.3, kg, 06/05/23 15:25:00 EDT, Weight Dosing cephalexin, 500 mg = 1 cap(s), Oral, q6hr, X 7 day(s), # 28 cap(s), Refills(s) 0, Pharmacy: [facility] 1985, 168, cm, 06/05/23 15:25:00 EDT, Height/Length Dosing, 143.3, kg, 06/05/23 15:25:00 EDT, Weight Dosing US LE Venous Duplex Right Disposition Plan Patient Discharge Condition Stable Discharge Disposition To home Discharge Prescription List Prescriptions acetaminophen-oxycodone 325 mg-5 mg Tab, 1 tab(s), Oral, q6hr, PRN Keflex 500 mg Cap, 500 mg= 1 cap(s), Oral, q6hr Vanderbilt 325 mg-5 mg oral tablet, 1 tab(s), Oral, q6hr, PRN Follow-up With When Contact Information Brooke ELIZALDE In 3 days 06/08/2023 EDT [address] [facility] [address] [place] [address]- Business (1) Additional Instructions: Follow-up with your primary care provider in 3 to 5 days. If symptoms worsen, do not improve, or new symptoms arise please report back to emergency department for further evaluation. Patient Educatio (more content not included)... [facility] Comment on above: Result Comment: Elec tronically Signed By: Addison Sanchez PA-C\.br\Date and Time Signed: 06/05/23 18:06 EDT\.br\Electronically Co-Signed By: Jean Huang DO\.br\Date and Time Co-Signed: 06/05/23 19:07 EDT ED Patient Education Noteon 2023 ED Patient Education Note Infectious Disease Cellulitis, Adult Cellulitis is a skin infection. The infected area is often warm, red, swollen, and sore. It occurs most often in the arms and lower legs. It is very important to get treated for this condition. What are the causes? This condition is caused by bacteria. The bacteria enter through a break in the skin, such as a cut, burn, insect bite, open sore, or crack. What increases the risk? This condition is more likely to occur in people who: ? Have a weak body defense system (immune system). ? Have open cuts, medrano, bites, or scrapes on the skin. ? Are older than 60 years of age. ? Have a blood sugar problem (diabetes). ? Have a long-lasting (chronic) liver disease (cirrhosis) or kidney disease. ? Are very overweight (obese). ? Have a skin problem, such as: ? Itchy rash (eczema). ? Slow movement of blood in the veins (venous stasis). ? Fluid buildup below the skin (edema). ? Have been treated with high-energy rays (radiation). ? Use IV drugs. What are the signs or symptoms? Symptoms of this condition include: ? Skin that is: ? Red. ? Streaking. ? Spotting. ? Swollen. ? Sore or painful when you touch it. ? Warm. ? A fever. ? Chills. ? Blisters. How is this diagnosed? This condition is diagnosed based on: ? Medical history. ? Physical exam. ? Blood tests. ? Imaging tests. How is this treated? Treatment for this condition may include: ? Medicines to treat infections or allergies. ? Home care, such as: ? Rest. ? Placing cold or warm cloths (compresses) on the skin. ? Hospital care, if the condition is very bad. Follow these instructions at home: Medicines ? Take gqwb-hvz-pyfmxzl and prescription medicines only as told by your doctor. ? If you were prescribed an antibiotic medicine, take it as told by your doctor. Do not stop taking it even if you start to feel better. General instructions ? Drink enough fluid to keep your pee (urine) pale yellow. ? Do not touch or rub the infected area. ? Raise (elevate) the infected area above the level of your heart while you are sitting or lying down. ? Place cold or warm cloths on the area as told by your doctor. ? Keep all follow-up visits as told by your doctor. This is important. Contact a doctor if: ? You have a fever. ? You do not start to get better after 1?2 days of treatment. ? Your bone or joint under the infected area starts to hurt after the skin has healed. ? Your infection comes back. This can happen in the same area or another area. ? You have a swollen bump in the area. ? You have new symptoms. ? You feel ill and have muscle aches and pains. Get help right away if: ? Your symptoms get worse. ? You feel very sleepy. ? You throw up (vomit) or have watery poop (diarrhea) for a long time. ? You see red streaks coming from the area. ? Your red area gets larger. ? Your red area turns dark in color. These symptoms may represent a serious problem that is an emergency. Do not wait to see if the symptoms will go away. Get medical help right away. Call your local emergency services (911 in the [place] Do not drive yourself to the hospital. Summary ? Cellulitis is a skin infection. The area is often warm, red, swollen, and sore. ? This condition is treated with medicines, rest, and cold and warm cloths. ? Take all medicines only as told by your doctor. ? Tell your doctor if symptoms do not start to get better after 1?2 days of treatment. This information is not intended to replace advice given to you by your health care provider. Make sure you discuss any questions you have with your health care provider. Document Revised: 07/28/2022 Document Reviewed: 07/28/2022 [employer]Appe[employer] Patient Education ? 2022 [employer] [facility] ED Patient Summaryon 023 ED Patient Summary (Inserted Image. Anika ble to display) [address] [address] Patient Discharge Instructions Person Information Name: TAMRA GRIDER Age: 58 Years Arrival Date: 2023 15:01:35 Discharge Diagnosis: Cellulitis of right leg Primary Care Physician: THADDEUS DEUTSCH, Brooke Mccray Provider Information Primary Provider: Jean Huang DO Advanced Verify Rep:None The exam and treatment you received in the Emergency Department were for an urgent problem and are not intended as complete care. It is important that you follow up with a doctor, nurse practitioner, or physician?s manufacturing assistant for ongoing care. If your symptoms become worse or you do not improve as expected and you are unable to reach your usual health care provider, you should return to the Emergency Department. We are available 24 hours a day. TAMRA GRIDER has been given the following list of patient education materials, prescriptions and follow-up instructions: Follow-up Instructions: With: Address: When: Brooke ELIZALDE [address] [place] [phone] Business (1) In 3 days 06/08/2023 Comments: Follow-up with your primary care provider in 3 to 5 days. If symptoms worsen, do not improve, or new symptoms arise please report back to emergency department for further evaluation. In the event that this physician does not participate in your insurance network, please consult with your insurance company to find a nearby participating provider. Patient Education Materials: Cellulitis, Adult, Syqz-et-Bgzf A MESSAGE TO ALL PATIENTS REGARDING OPIOIDS PRESCRIPTION OPIOIDS: WHAT YOU NEED TO KNOW Prescription opioids can be used to help relieve sgymkueb-ut-vrxrcw pain and are often prescribed following a surgery or injury, or for certain health conditions. These medications can be an important part of the treatment but also come with serious risks. It is important to work with your healthcare provider to make sure you are getting the safest, most effective care. WHAT ARE THE RISKS AND SIDE EFFECTS OF OPIOID USE? Prescription opioids carry serious risks of addiction and overdose, especially with prolonged use. An opioid overdose, often marked by slowed breathing, can cause sudden . The use of prescription opioids can have a number of side effects as well, even when taken as directed: ? Tolerance?meaning you might need to take more of the medication for the same pain relief ? Physical dependence?meaning you have symptoms of withdrawal when a medication is stopped ? Increased sensitivity to pain ? Constipation ? Nausea, vomiting, and dry mouth ? Sleepiness and dizziness ? Confusion ? Depression ? Low levels of testosterone that can result in lower sex drive, energy, and strength ? Itching and sweating RISKS ARE GREATER WITH: ? History of drug misuse, substance use disorder, or overdose ? Mental health conditions (such as depression or anxiety) ? Sleep apnea ? Older age (65 years and older) ? Avoid alcohol while taking prescription opioids. Also, unless specifically advised by your health care provider, medications to avoid include: ? Benzodiazepines (such as Xanax or Valium) ? Muscle relaxants (such as Soma or Flexeril) ? Hypnotics (such as Ambien or Lunesta) ? Other prescription opioids KNOW YOUR OPTIONS Talk to your health care provider about ways to manage your pain that don?t involve prescription opioids. Some of these options may actually work better and have fewer risks and side effects. Options may include: ? Pain relievers such as acetaminophen, ibuprofen, and naproxen ? Some medication that are also used for depression or seizures ? Physical therapy and exercise ? Cognitive behavioral therapy, a psychological, goal-directed approach, in which patients learn how to modify physical, behavioral, and emotional triggers of pain and stress. IF YOU ARE PRESCRIBED OPIOIDS FOR PAIN: ? Never take opioids in greater amounts or more often than prescribed. ? Follow up with your primary health care provider. o Work together to create a plan on how to manage your pain. o Talk about ways to help manage your pain that don?t involve prescription opioids. o Talk about any and all concerns and side effects. ? Help prevent misuse and abuse o Never sell or share prescription opioids. o Never use another person?s prescription opioids. ? Store prescription opioids in a secure place and out of reach of others (this may include visitors, children, friends, and family). ? Safely dispose of unused prescription opioids: Find your community drug take-back program or your pharmacy mail-back program, or flush them down the toilet, following guidance from the Food and Drug Administration (www.fda.gov/Drugs/Reso urcesForYou). ? Visit www.cdc.gov/drugoverd (more content not included)... [facility] LE Venous Duplex Righton 2023 US LE Venous Duplex Right Exam Date/Time: 2023 16:14 EDT Reason for Exam: Leg pain Report IMPRESSION: NO RIGHT LOWER EXTREMITY DVT IDENTIFIED. EXAM: US LE Venous Duplex Right DATE: 2023 CLINICAL HISTORY: Leg pain. COMPARISON: 03/29/2022. TECHNIQUE: Grayscale, compression, color and waveform Doppler analysis of the right lower extremity venous systems was performed with augmentation. Spectral Doppler waveforms were evaluated for spontaneity, phasicity and appropriate augmentation. FINDINGS: There is no deep or superficial venous thrombosis, abnormal masses, organized fluid collections, or other findings of concern identified within the right lower extremity. No DVT present within the visualized left common femoral vein. Ordering Provider: Addison Sanchez FINAL REPORT Dictated: 2023 4:19 pm Lan Rhodes MD Signed (Electronic Signature): 2023 4:19 pm Signed by: Lan Rhodes MD Transcribed by: PREMA Technologist: CANDICE [facility] Family Medicine Office/Clini c Noteon 05-03-2023 Family Medicine Office/Clinic Note Chief Complaint Medicare wellness subsequent History of Present Illness Covid-19, MERS, Ebola Screen *Contact With Person With Highly Contagious Disease Like Ebola/MERS/COVID-19 AND Have One or More of the Symptoms Below : No *Travel to a Country With Wide-Spread Ebola/MERS/COVID-19 in the Past 21 Days AND Have One or More of the Symptoms Below : No Patient Reported Covid-19 Testing : No *Verify Droplet, Contact Precautions for Ebola (Reference for CDC) : N/A *Verify Airborne, Droplet Precautions for MERS/COVID-19 : N/A Dara Gaona 04/19/2023 13:44 EDT Medicare/Medicaid Summary Chief Complaint : Medicare wellness subsequent Patient Counseled : Nutrition, Physical activity, Elevated BMI Height/Length Measured : 168 cm(Converted to: 5 ft 6 in, 66.14 in) Weight Measured : 143.33 kg(Converted to: 316 lb 0 Ounces, 315.989 lb) Body Mass Index Measured : 50.78 kg/m2 Height in Inches : 66 in Weight in Pounds : 315.326 lb Waist Measurement : 127 cm(Converted to: 50 in) Systolic Blood Pressure : 122 mmHg Diastolic Blood Pressure : 80 mmHg Blood Pressure Location : Left arm Blood Pressure Position : Sitting O2 Sat Resting/Exertion Alpha : Resting Peripheral Pulse Rate : 95 bpm SpO2 : 95 % Pain Present : Yes actual or suspected pain Numeric Rating Pain Scale : 7 Primary Pain Comments : Also has intermittent left ankle pain Primary Pain Location : Back Numeric Rating Pain Score : 7 Dara Gaona - 04/19/2023 13:44 EDT Patient Preferred Method of Communication Phone Call Hearing and Vision Screening FT FT Whisper Test Comments : No issues or concerns with hearing Vision Screen Comments : Pt. follows with Dr. Scott, no issues or concerns noted. Dara Gaona - 04/19/2023 13:44 EDT Advance Directive FT Advance Directive : No Patient Wishes to Receive Further Information on Advance Directives : Yes Organ Donation Consent : No Dara Gaona - 04/19/2023 13:44 EDT Procedures / Surgeries FT - Procedure History (As Of: 04/19/2023 13:51:59 EDT) Procedure Dt/Tm: 2011 ; Anesthesia Minutes: 0 ; Procedure Name: Hernia repair ; Procedure Minutes: 0 ; Last Reviewed Dt/Tm: 04/19/2023 13:47:16 EDT Anesthesia Minutes: 0 ; Procedure Name: MULTIPLE HERNIA REPAIRS ; Procedure Minutes: 0 ; Last Reviewed Dt/Tm: 04/19/2023 13:47:16 EDT Anesthesia Minutes: 0 ; Procedure Name: Appendectomy; ; Procedure Minutes: 0 ; Last Reviewed Dt/Tm: 04/19/2023 13:47:16 EDT Procedure Dt/Tm: 2014 ; Anesthesia Minutes: 0 ; Procedure Name: Laparotomy ; Procedure Minutes: 0 ; Last Reviewed Dt/Tm: 04/19/2023 13:47:16 EDT Procedure Dt/Tm: 05/10/2016 ; Location: [facility] ; Provider: EJ DEUTSCH Long; Anesthesia Minutes: 0 ; Procedure Name: Colonoscopy ; Procedure Minutes: 0 ; Last Reviewed Dt/Tm: 04/19/2023 13:47:16 EDT Anesthesia Minutes: 0 ; Procedure Name: History of total hysterectomy - cervical cancer ; Procedure Minutes: 0 ; Last Reviewed Dt/Tm: 04/19/2023 13:47:16 EDT Procedure Dt/Tm: 05/07/2021 ; Provider: Mercedes PAGAN MD; Anesthesia Minutes: 0 ; Procedure Name: Colonoscopy ; Procedure Minutes: 0 ; Last Reviewed Dt/Tm: 04/19/2023 13:47:16 EDT Procedure Dt/Tm: 05/07/2021 ; Provider: Mercedes PAGAN MD; Anesthesia Minutes: 0 ; Procedure Name: Colonoscopy ; Procedure Minutes: 0 ; Last Reviewed Dt/Tm: 04/19/2023 13:47:16 EDT Family History Family History (As Of: 04/19/2023 13:51:59 EDT) Sister: Relation: Sister ; Gender: Female ; Nomenclature: Diabetes mellitus type 1 ; Value: Positive Father: Relation: Father ; Gender: Male ; Nomenclature: Hypertension ; Value: Positive Nomenclature: Stroke ; Value: Positive Nomenclature: Diabetes mellitus type 2 ; Value: Positive Nomenclature: Breast cancer ; Value: Positive Mother: Relation: Mother ; Gender: Female ; Nomenclature: Diabetes mellitus type 2 ; Value: Positive Nomenclature: Hypertension ; Value: Positive Nomenclature: Glaucoma ; Value: Positive Nomenclature: Hyperlipidemia ; Value: Positive Medicare/Medicaid Social History FT Social History (As Of: 04/19/2023 13:51:59 EDT) Alcohol: Denies Alcohol Use Previous treatment: None. Household alcohol concerns: No. (Last Updated: 04/06/2021 17:33:04 EDT by Anthony Potter LPN) Tobacco: Denies Tobacco Use Former smoker, quit more than 30 days ago Tobacco Use:. Never Smokeless Tobacco Use:. Cigarettes, 1 per day. 29 year(s). Total pack years: 29. Started age 16.0 Years. Stopped age 50 Years. Household tobacco concerns: No. (Last Updated: 04/19/2023 13:47:31 EDT by Dara Gaona) Substance Abuse: Denies Substance Abuse Previous treatment: None. Household substance abuse concerns: No. (Last Updated: 04/06/2021 17:32:19 EDT by Anthony Potter LPN) Health Risk Assessment FT HRA little interest or pleasure? : No HRA down, depressed, or hopeless? : No Hazards in your house? : No Fall Risk Past Year : No Worri (more content not included)... Normal [facility] Comment on above: Result Comment: Elec tronically Signed By: Yessenia Mcdonoguh MD\.br\Date and Time Signed: 05/03/23 21:15 EDT\.br\Electronically Co-Signed By: Dara Gaona\.br\Date and Time Co-Signed: 04/19/23 14:07 EDT Formson 04-26-2023 Forms [id number] D:127 [facility] Result Letter Officeon 04-26 Result Letter Office (Inserted Image. Un able to display) April 26, 2023 TAMRA CROWLEY [address] [id number] : 1965 Result Name Current Result Hemoglobin A1c POC FT Amb-Text 12/30/2022 Hgb A1c POC (%) 8.3 12/30/2022 [facility] Screenson 04-20-2023 Screens [id number] D:127 [facility] Ambulatory Visit Summaryon 0 04-19-2023 Ambulatory Visit Summary TAMRA GRIDER :1965 Visit Date:04/19/2023 Ambulatory Visit Instructions Your Diagnosis Annual visit for general adult medical examination without abnormal findings Diabetes type 2, uncontrolled COPD mixed type Morbid obesity due to excess calories Psoriasis Your Care Team Attending Physician - Yessenia Mcdonough MD Primary Care Physician - Brooke ELIZALDE MD This Is Your Medications List Misc Prescription (Lancets) Misc Prescription (Strips for glucometer) Misc Prescription (Test Strips) Misc Prescription (lancets) Misc Prescription (pen needles 6mm, 31 g) albuterol (Ventolin HFA 90 mcg/inh Aerosol) atorvastatin (atorvastatin 40 mg Tab) betamethasone-clotrimaz ole topical (betamethasone-clotrima zole Top 0.05%-1% Crm 15 gram) dulaglutide (Trulicity Pen 1.5 mg/0.5 mL subcutaneous solution) dulaglutide (Trulicity Pen 3 mg/0.5 mL subcutaneous solution) dulaglutide (Trulicity Pen 4.5 mg/0.5 mL subcutaneous solution) famotidine (famotidine 20 mg Tab) furosemide (Lasix 20 mg Tab) ibuprofen (ibuprofen 800 mg Tab) insulin aspart (NovoLOG FlexPen 100 units/mL injectable solution) insulin detemir (Levemir FlexTouch 100 units/mL subcutaneous solution) ixekizumab (Taltz Autoinjector 80 mg/mL subcutaneous solution) naproxen (Naprosyn 500 mg Tab) umeclidinium-vilanterol (Anoro Ellipta 62.5 mcg-25 mcg inhalation powder) zinc sulfate (Zinc) Procedures Performed Colonoscopy (05/07/2021), Colonoscopy (05/07/2021), Colonoscopy (05/10/2016), Laparotomy (2014), Hernia repair (2011), Appendectomy;., History of total hysterectomy, MULTIPLE HERNIA REPAIRS. Discharge Vitals Heart Rate (Peripheral) 95 Blood Pressure 122/80 Height 168 cm Height 66 in Weight 143.33 kg Weight 315.326 lb BMI 50.78 What to do next Scheduled Follow-Up Appointments Monday 1:00 PM EDT With: THADDEUS DEUTSCH, Brooke Mccray Where: [facility] [address] [address]- \.br\ Medications\.br\ What How Much When Why Instructions\.br \ Unchanged albuterol (Ventolin HFA 90 mcg/ inh Aerosol) 1 Puffs Inhalation Once as needed for for wheezing\.br\ Unchanged atorvastatin (atorvastatin 40 mg Tab) 1 Tablets By Mouth Every day\.br\ Unchanged betamethasone-cl otrimazole topical (betamethasone-c lotrimazole Top 0.05%-1% Crm 15 gram) See instructions Not to be used longer than 2 weeks \.br\ Unchanged dulaglutide (Trulicity Pen 1.5 mg/ 0.5 mL subcutaneous solution) 1.5 Milligram Subcutaneous Every week\.br\ Unchanged dulaglutide (Trulicity Pen 3 mg/ 0.5 mL subcutaneous solution) 3 Milligram Subcutaneous Every week\.br\ Unchanged dulaglutide (Trulicity Pen 4.5 mg/ 0.5 mL subcutaneous solution) 4.5 Milligram Subcutaneous Every week\.br\ Unchanged famotidine (famotidine 20 mg Tab) 1 Tablets By Mouth 2 times a day as needed for Dyspepsia\.br\ Unchanged furosemide (Lasix 20 mg Tab) 1 Tablets By Mouth Every day\.br\ Unchanged ibuprofen (ibuprofen 800 mg Tab) 1 Tablets By Mouth 3 times a day as needed for as needed for pain Chronic pain syndrome\.br\ Unchanged insulin aspart (NovoLOG FlexPen 100 units/ mL injectable solution) 18 Units Subcutaneous Before meals before a meal \.br\ Unchanged insulin detemir (Levemir FlexTouch 100 units/ mL subcutaneous solution) 40 Units Subcutaneous At bedtime\.br\ Unchanged ixekizumab (Taltz Autoinjector 80 mg/ mL subcutaneous solution)\.br\ Unchanged Misc Prescription (lancets) See instructions test daily E11.65 \.br\ Unchanged Misc Prescription (Lancets) 0 Box #1 Refills #5 \.br\ Unchanged Misc Prescription (pen needles 6mm, 31 g) See instructions injects qid. and prn dx E11.65 \.br\ Unchanged Misc Prescription (Strips for glucometer) 0 Box #1 Refeills 5 \.br\ Unchanged Misc Prescription (Test Strips) See instructions test daily E11.65 \.br\ Unchanged naproxen (Naprosyn 500 mg Tab) 1 Tablets By Mouth 2 times a day\.br\ Unchanged umeclidinium-jaleel anterol (Anoro Ellipta 62.5 mcg-25 mcg inhalation powder) 1 Inhalation Inhalation Every day\.br\ Unchanged zinc sulfate (Zinc) 50 Milligram By Mouth Every day only during winter months \.br\ Allergies\.br\ penicillins (Rash)\.br\ Lodine (Swelling)\.br\ predniSONE (Muscle spasm - tone)\.br\ Problems\.br\ Ongoing - Any problem that you are currently receiving treatment for.\.br\ Abnormal mammogram of left breast\.br\ Bilateral hand pain\.br\ BMI 40.0-44.9, adult\.br\ Candidal dermatitis\.br\ Chronic pain syndrome\.br\ Controlled type 2 diabetes mellitus with diabetic neuropathy, with long-term current use of insulin\.br\ COPD mixed type\.br\ Dental caries\.br\ Diabetes type 2, uncontrolled\.br \ Diabetic neuropathy\.br\ Dietary counseling\.br\ Edema\.br\ Edema of abdomen\.br\ Elevated liver function tests\.br\ Family hx colonic polyps\.br\ Family hx of colon cancer\.br\ High risk medication use\.br\ History of cigarette smoking\.br\ Hx of cervical cancer\.br\ Hypertriglycerid emia\.br\ Immunosuppressio n\.br\ Knee pain\.br\ Long-term insulin use\.br\ Lumbar spondylosis with myelopathy\.br\ Mixed hyperlipidemia\. br\ Morbid obesity due to excess calories\.br\ Neuropathic pain, leg, bilateral\.br\ Neuropathy, ilioinguinal nerve\.br\ Non-smoker\.br\ Numbness of fingers of both hands\.br\ Open angle with borderline findings, low risk, bilateral\.br\ Ovarian failure\.br\ Periodontal disease\.br\ Personal history of colonic polyps\.br\ Psoriasis\.br\ Right lower quadrant abdominal pain\.br\ Right upper quadrant pain\.br\ Screening mammogram, encounter for\.br\ Vaginal candidiasis\.br\ Historical - Any problem that you are no longer receiving treatment for.\.br\ Abdominal wall pain\.br\ At risk for falls\.br\ Body mass index 45.0-49.9, adult\.br\ Cervical cancer\.br\ Chronic back pain\.br\ chronic knee pain\.br\ Depression\.br\ Diabetes mellitus\.br\ Elevated BP without diagnosis of hypertension\.br \ Endometriosis\.b r\ GERD without esophagitis\.br\ History of smoking\.br\ hysterectomy\.br \ Incisional hernia\.br\ Infected tooth\.br\ Major depressive disorder, recurrent, moderate\.br\ Migraine\.br\ Moderate recurrent major depression\.br\ Ovarian cyst\.br\ Pain, dental\.br\ Recurrent inguinal hernia\.br\ Repair of ventral hernia\.br\ RLQ abdominal pain\.br\ Shortness of breath\.br\ Situational depression\.br\ Smoker\.br\ Type 2 diabetes mellitus with hyperlipidemia\. br\ Ventral hernia\.br\ Education Materials\.br\ Chronic Obstructive Pulmonary Disease Exacerbation\.br \ \.br\ Chronic obstructive pulmonary disease (COPD) is a long-term (chronic) lung problem. In COPD, the flow of air from the lungs is limited.\.br\ COPD exacerbations are times that breathing gets worse and you need more than your normal treatment. Without treatment, they can be life-threatening . If they happen often, your lungs can become more damaged.\.br\ What are the causes?\.br\ ? \.br\ Having infections that affect your airways and lungs.\.br\ ? \.br\ Being exposed to:\.br\ ? \.br\ Smoke.\.br\ ? \.br\ Air pollution.\.br\ ? \.br\ Chemical fumes.\.br\ ? \.br\ Dust.\.br\ ? \.br\ Things that can cause an allergic reaction (allergens).\.br \ ? \.br\ Not taking your usual COPD medicines as told.\.br\ ? \.br\ Having medical problems already, such as heart failure or infections not involving the lungs.\.br\ In many cases, the cause is not known.\.br\ What increases the risk?\.br\ ? \.br\ Smoking.\.br\ ? \.br\ Being an older adult.\.br\ ? \.br\ Having frequent prior COPD exacerbations.\. br\ What are the signs or symptoms?\.br\ ? \.br\ Increased coughing.\.br\ ? \.br\ Increased mucus from your lungs.\.br\ ? \.br\ Increased wheezing.\.br\ ? \.br\ Increased shortness of breath.\.br\ ? \.br\ Fast breathing and finding it hard to breathe.\.br\ ? \.br\ Chest tightness.\.br\ ? \.br\ Less energy than usual.\.br\ ? \.br\ Sleep disruption from symptoms.\.br\ ? \.br\ Confusion.\.br\ ? \.br\ Increased sleepiness.\.br\ Often, these symptoms happen or get worse even with the use of medicines.\.br\ How is this treated?\.br\ Treatment for this condition depends on how bad it is and the cause of the symptoms. You may need to stay in the hospital for treatment. Treatment may include:\.br\ ? \.br\ Taking medicines.\.br\ ? \.br\ Using oxygen.\.br\ ? \.br\ Being treated with different ways to clear your airway, such as using a mask to deliver oxygen.\.br\ Follow these instructions at home:\.br\ Medicines\.br\ ? \.br\ Take atps-dwu-nuviuua and prescription medicines only as told by your doctor.\.br\ ? \.br\ Use all inhaled medicines the correct way.\.br\ ? \.br\ If you were prescribed an antibiotic or steroid medicine, take it as told by your doctor. Do not stop taking it even if you start to feel better.\.br\ Lifestyle\.br\ ? \.br\ Do not smoke or use any products that contain nicotine or tobacco. If you need help quitting, ask your doctor.\.br\ ? \.br\ Eat healthy foods.\.br\ ? \.br\ Exercise regularly.\.br\ ? \.br\ Get enough sleep. Most adults need 7 or more hours per night.\.br\ ? \.br\ Avoid tobacco smoke and other things that can bother your lungs.\.br\ ? \.br\ Several times a day, wash your hands with soap [facility] Ambulatory Visit Summary TAMRA GRIDER :1965 Visit Date:04/19/2023 Ambulatory Visit Instructions Your Diagnosis Annual visit for general adult medical examination without abnormal findings Diabetes type 2, uncontrolled COPD mixed type Morbid obesity due to excess calories Your Care Team Attending Physician - Yessenia Mcdonough MD Primary Care Physician - THADDEUS DEUTSCH, Brooke Mccray This Is Your Medications List Misc Prescription (Lancets) Misc Prescription (Strips for glucometer) Misc Prescription (Test Strips) Misc Prescription (lancets) Misc Prescription (pen needles 6mm, 31 g) albuterol (Ventolin HFA 90 mcg/inh Aerosol) atorvastatin (atorvastatin 40 mg Tab) betamethasone-clotrimaz ole topical (betamethasone-clotrima zole Top 0.05%-1% Crm 15 gram) dulaglutide (Trulicity Pen 1.5 mg/0.5 mL subcutaneous solution) dulaglutide (Trulicity Pen 3 mg/0.5 mL subcutaneous solution) dulaglutide (Trulicity Pen 4.5 mg/0.5 mL subcutaneous solution) famotidine (famotidine 20 mg Tab) furosemide (Lasix 20 mg Tab) ibuprofen (ibuprofen 800 mg Tab) insulin aspart (NovoLOG FlexPen 100 units/mL injectable solution) insulin detemir (Levemir FlexTouch 100 units/mL subcutaneous solution) ixekizumab (Taltz Autoinjector 80 mg/mL subcutaneous solution) naproxen (Naprosyn 500 mg Tab) umeclidinium-vilanterol (Anoro Ellipta 62.5 mcg-25 mcg inhalation powder) zinc sulfate (Zinc) Procedures Performed Colonoscopy (05/07/2021), Colonoscopy (05/07/2021), Colonoscopy (05/10/2016), Laparotomy (2014), Hernia repair (2011), Appendectomy;., History of total hysterectomy, MULTIPLE HERNIA REPAIRS. What to do next Scheduled Follow-Up Appointments Monday 1:00 PM EDT With: THADDEUS DEUTSCH, Brooke Mccray Where: [facility] [address] [address]- \.br\ Medications\.br\ What How Much When Why Instructions\.br \ Unchanged albuterol (Ventolin HFA 90 mcg/ inh Aerosol) 1 Puffs Inhalation Once as needed for for wheezing\.br\ Unchanged atorvastatin (atorvastatin 40 mg Tab) 1 Tablets By Mouth Every day\.br\ Unchanged betamethasone-cl otrimazole topical (betamethasone-c lotrimazole Top 0.05%-1% Crm 15 gram) See instructions Not to be used longer than 2 weeks \.br\ Unchanged dulaglutide (Trulicity Pen 1.5 mg/ 0.5 mL subcutaneous solution) 1.5 Milligram Subcutaneous Every week\.br\ Unchanged dulaglutide (Trulicity Pen 3 mg/ 0.5 mL subcutaneous solution) 3 Milligram Subcutaneous Every week\.br\ Unchanged dulaglutide (Trulicity Pen 4.5 mg/ 0.5 mL subcutaneous solution) 4.5 Milligram Subcutaneous Every week\.br\ Unchanged famotidine (famotidine 20 mg Tab) 1 Tablets By Mouth 2 times a day as needed for Dyspepsia\.br\ Unchanged furosemide (Lasix 20 mg Tab) 1 Tablets By Mouth Every day\.br\ Unchanged ibuprofen (ibuprofen 800 mg Tab) 1 Tablets By Mouth 3 times a day as needed for as needed for pain Chronic pain syndrome\.br\ Unchanged insulin aspart (NovoLOG FlexPen 100 units/ mL injectable solution) 18 Units Subcutaneous Before meals before a meal \.br\ Unchanged insulin detemir (Levemir FlexTouch 100 units/ mL subcutaneous solution) 40 Units Subcutaneous At bedtime\.br\ Unchanged ixekizumab (Taltz Autoinjector 80 mg/ mL subcutaneous solution)\.br\ Unchanged Misc Prescription (lancets) See instructions test daily E11.65 \.br\ Unchanged Misc Prescription (Lancets) 0 Box #1 Refills #5 \.br\ Unchanged Misc Prescription (pen needles 6mm, 31 g) See instructions injects qid. and prn dx E11.65 \.br\ Unchanged Misc Prescription (Strips for glucometer) 0 Box #1 Refeills 5 \.br\ Unchanged Misc Prescription (Test Strips) See instructions test daily E11.65 \.br\ Unchanged naproxen (Naprosyn 500 mg Tab) 1 Tablets By Mouth 2 times a day\.br\ Unchanged umeclidinium-jaleel anterol (Anoro Ellipta 62.5 mcg-25 mcg inhalation powder) 1 Inhalation Inhalation Every day\.br\ Unchanged zinc sulfate (Zinc) 50 Milligram By Mouth Every day only during winter months \.br\ Allergies\.br\ penicillins (Rash)\.br\ Lodine (Swelling)\.br\ predniSONE (Muscle spasm - tone)\.br\ Problems\.br\ Ongoing - Any problem that you are currently receiving treatment for.\.br\ Abnormal mammogram of left breast\.br\ Bilateral hand pain\.br\ BMI 40.0-44.9, adult\.br\ Candidal dermatitis\.br\ Chronic pain syndrome\.br\ Controlled type 2 diabetes mellitus with diabetic neuropathy, with long-term current use of insulin\.br\ COPD mixed type\.br\ Dental caries\.br\ Diabetes type 2, uncontrolled\.br \ Diabetic neuropathy\.br\ Dietary counseling\.br\ Edema\.br\ Edema of abdomen\.br\ Elevated liver function tests\.br\ Family hx colonic polyps\.br\ Family hx of colon cancer\.br\ High risk medication use\.br\ History of cigarette smoking\.br\ Hx of cervical cancer\.br\ Hypertriglycerid emia\.br\ Immunosuppressio n\.br\ Knee pain\.br\ Long-term insulin use\.br\ Lumbar spondylosis with myelopathy\.br\ Mixed hyperlipidemia\. br\ Morbid obesity due to excess calories\.br\ Neuropathic pain, leg, bilateral\.br\ Neuropathy, ilioinguinal nerve\.br\ Non-smoker\.br\ Numbness of fingers of both hands\.br\ Open angle with borderline findings, low risk, bilateral\.br\ Ovarian failure\.br\ Periodontal disease\.br\ Personal history of colonic polyps\.br\ Psoriasis\.br\ Right lower quadrant abdominal pain\.br\ Right upper quadrant pain\.br\ Screening mammogram, encounter for\.br\ Vaginal candidiasis\.br\ Historical - Any problem that you are no longer receiving treatment for.\.br\ Abdominal wall pain\.br\ At risk for falls\.br\ Body mass index 45.0-49.9, adult\.br\ Cervical cancer\.br\ Chronic back pain\.br\ chronic knee pain\.br\ Depression\.br\ Diabetes mellitus\.br\ Elevated BP without diagnosis of hypertension\.br \ Endometriosis\.b r\ GERD without esophagitis\.br\ History of smoking\.br\ hysterectomy\.br \ Incisional hernia\.br\ Infected tooth\.br\ Major depressive disorder, recurrent, moderate\.br\ Migraine\.br\ Moderate recurrent major depression\.br\ Ovarian cyst\.br\ Pain, dental\.br\ Recurrent inguinal hernia\.br\ Repair of ventral hernia\.br\ RLQ abdominal pain\.br\ Shortness of breath\.br\ Situational depression\.br\ Smoker\.br\ Type 2 diabetes mellitus with hyperlipidemia\. br\ Ventral hernia\.br\ Education [employer]\.br\ Chronic Obstructive Pulmonary Disease Exacerbation\.br \ \.br\ Chronic obstructive pulmonary disease (COPD) is a long-term (chronic) lung problem. In COPD, the flow of air from the lungs is limited.\.br\ COPD exacerbations are times that breathing gets worse and you need more than your normal treatment. Without treatment, they can be life-threatening . If they happen often, your lungs can become more damaged.\.br\ What are the causes?\.br\ ? \.br\ Having infections that affect your airways and lungs.\.br\ ? \.br\ Being exposed to:\.br\ ? \.br\ Smoke.\.br\ ? \.br\ Air pollution.\.br\ ? \.br\ Chemical fumes.\.br\ ? \.br\ Dust.\.br\ ? \.br\ Things that can cause an allergic reaction (allergens).\.br \ ? \.br\ Not taking your usual COPD medicines as told.\.br\ ? \.br\ Having medical problems already, such as heart failure or infections not involving the lungs.\.br\ In many cases, the cause is not known.\.br\ What increases the risk?\.br\ ? \.br\ Smoking.\.br\ ? \.br\ Being an older adult.\.br\ ? \.br\ Having frequent prior COPD exacerbations.\. br\ What are the signs or symptoms?\.br\ ? \.br\ Increased coughing.\.br\ ? \.br\ Increased mucus from your lungs.\.br\ ? \.br\ Increased wheezing.\.br\ ? \.br\ Increased shortness of breath.\.br\ ? \.br\ Fast breathing and finding it hard to breathe.\.br\ ? \.br\ Chest tightness.\.br\ ? \.br\ Less energy than usual.\.br\ ? \.br\ Sleep disruption from symptoms.\.br\ ? \.br\ Confusion.\.br\ ? \.br\ Increased sleepiness.\.br\ Often, these symptoms happen or get worse even with the use of medicines.\.br\ How is this treated?\.br\ Treatment for this condition depends on how bad it is and the cause of the symptoms. You may need to stay in the hospital for treatment. Treatment may include:\.br\ ? \.br\ Taking medicines.\.br\ ? \.br\ Using oxygen.\.br\ ? \.br\ Being treated with different ways to clear your airway, such as using a mask to deliver oxygen.\.br\ Follow these instructions at home:\.br\ Medicines\.br\ ? \.br\ Take xbrj-byq-xnfkser and prescription medicines only as told by your doctor.\.br\ ? \.br\ Use all inhaled medicines the correct way.\.br\ ? \.br\ If you were prescribed an antibiotic or steroid medicine, take it as told by your doctor. Do not stop taking it even if you start to feel better.\.br\ Lifestyle\.br\ ? \.br\ Do not smoke or use any products that contain nicotine or tobacco. If you need help quitting, ask your doctor.\.br\ ? \.br\ Eat healthy foods.\.br\ ? \.br\ Exercise regularly.\.br\ ? \.br\ Get enough sleep. Most adults need 7 or more hours per night.\.br\ ? \.br\ Avoid tobacco smoke and other things that can bother your lungs.\.br\ ? \.br\ Several times a day, wash your hands with soap [facility] Patient Educationon 04-19-20 Patient Education Endocrinology Insulin Treatment for Diabetes Mellitus Diabetes, also known as diabetes mellitus, is a long-term (chronic) disease. It occurs when the body does not properly use sugar (glucose). Glucose levels are controlled by a hormone called insulin. Insulin is made in the pancreas, which is an organ behind the stomach. ? In type 1 diabetes, the pancreas does not make insulin. ? In type 2 diabetes, the body does not use or respond to insulin properly (called insulin resistance). Also, in some people, the pancreas does not make enough insulin. Treatment plans for diabetes vary. They are unique for each person. Treatment plans depend on: ? The type of diabetes. ? The treatment goals. ? Your medical history. People with type 1 diabetes and some with type 2 diabetes will need to take insulin as part of their treatment plan. Ask questions to understand your insulin treatment so you can be active in managing your diabetes. Types of insulin Insulin molecules are delicate. Insulin is destroyed by enzymes in the stomach or intestine. For this reason, insulin is not given in pill form. It is either injected under the skin or inhaled into the lungs. You may use more than one type of insulin. The different types of insulin are described below. It is important to know the onset, peak, and duration of the type of insulin you take. The onset is when it starts lowering blood glucose. The peak is when it works the strongest. The duration is how long it works. Insulin comes in different strengths. The most common strength is U-100, or 100 units per 1 mL of insulin. It is important to make sure you are using the right strength of insulin with the right syringe. Rapid-acting insulin: ? Onset: Within 15 minutes. ? Peak: About 1?2 hours. ? Duration: 2?4 hours. ? Works well when taken right before a meal to quickly lower your blood glucose. ? This type of insulin is available as an injection and an inhaler. You and your health care provider will decide if an injection or inhaler is best for you. Short-acting insulin: ? Onset: Within 30 minutes. ? Peak: 2?3 hours. ? Duration: 3?6 hours. ? Should be taken about 30 minutes before you start eating a meal. Intermediate-acting insulin: ? Onset: Within 1.5?4 hours. ? Peak: 4?12 hours. ? Duration: 12?18 hours. ? Lowers your blood glucose for a longer period of time. However, it does not work as well for lowering blood glucose right after a meal. Usually used 1?2 times per day. Long-acting insulin: ? Mimics the small amount of insulin that your pancreas usually makes throughout the day. ? Onset: Within 2 hours. ? Peak: There is no peak. Long-acting insulins lower blood glucose levels evenly throughout the day. ? Duration: At least 24 hours. Long-acting insulins should be used one or two times a day. Concentrated insulin: ? Concentrated insulins are available in higher concentrations than U-100 insulins. Concentrated insulins are helpful for people who require high doses of insulin, usually more than 100 units per day. Concentrated insulins deliver the same amount of insulin but in a smaller volume. ? Concentrated insulins are available as: ? Humulin (Regular insulin U-500) has 500 units per 1 mL of insulin. This insulin should only be used only with the U-500 syringe or U-500 insulin pen. Do not use another type of syringe with this insulin. The wrong type of syringe can cause serious problems such as low blood glucose. ? Humalog (Insulin Lispro, U-200) and Tresiba (Insulin degludec, U-200) have 200 units per 1 mL of insulin. These insulins are only available as a U-200 pen. ? Isao (Insulin glargine, U-300) has 300 units per 1 mL of insulin. This insulin is only available as a U-300 pen. Common terms related to insulin treatment: Some terms that you might hear include: Basal insulin or background insulin ? This is the constant amount of insulin that keeps your blood glucose levels stable when you are not eating. People who have type 1 diabetes need basal insulin in a nonstop (continuous) or steady dose 24 hours a day. People with type 2 diabetes may also get basal insulin. ? Usually, intermediate-acting or long-acting insulin is used one or two times a day to manage glucose levels. Bolus insulin ? This refers to meal-related insulin (prandial insulin). ? Blood glucose rises quickly after a meal (postprandial). Rapid-acting or short-acting insulin can be used before a meal (preprandial) to help control blood glucose after the meal. ? You may be told to adjust the amount of bolus insulin that you take based on how much carbohydrate is in your meal. Correction insulin This may also be called a correction dose or supplemental dose. This is a small amount of rapid-acting or short-acting insulin that can be used to lower your blood glucose if it is too high. You may be told to check your blood glucose at certain times of the day and use correction insulin as needed. Tight control, intensi (more content not included)... Normal [facility] Result Letter Officeon 04-19 Result Letter Office (Inserted Image. Un able to display) April 19, 2023 TAMRA MARIELENA [facility] [address] [id number] : 1965 Result Name Current Result Reference Range WBC (E9/L) 7.9 10/14/2022 4.0 - 11.0 RBC (E12/L) 4.4 10/14/2022 4.3 - 5.9 HGB (gm/dL) 13.3 10/14/2022 12.0 - 16.0 Hct (%) 40.0 10/14/2022 34.0 - 46.0 RDW (%) 13.6 10/14/2022 10.9 - 14.2 MCH (pg) 30.5 10/14/2022 27.0 - 34.0 MCHC (gm/dL) 33.2 10/14/2022 31.4 - 36.0 MCV (fL) 92.0 10/14/2022 80.0 - 100.0 MPV (fL) 9.1 10/14/2022 6.4 - 10.8 Platelet (E9/L) 320.0 10/14/2022 150.0 - 500.0 Neutro Auto (%) 68.0 10/14/2022 36.0 - 75.0 Lymph Auto (%) 22.6 10/14/2022 14.0 - 50.0 [place] Auto (%) 6.4 10/14/2022 4.0 - 14.0 Eos Auto (%) 2.6 10/14/2022 0.0 - 8.0 Basophil Auto (%) 0.4 10/14/2022 0.0 - 2.0 Neutro Absolute (E9/L) 5.3 10/14/2022 2.0 - 7.5 Lymph Absolute (E9/L) 1.8 10/14/2022 1.0 - 4.0 [place] Absolute (E9/L) 0.5 10/14/2022 0.2 - 1.0 Eos Absolute (E9/L) 0.2 10/14/2022 0.0 - 0.5 Basophil Absolute (E9/L) 0.0 10/14/2022 0.0 - 0.2 BUN (mg/dL) 9 10/14/2022 5 - 21 Creatinine (mg/dL) 0.7 10/14/2022 0.5 - 1.3 Sodium Lvl (mmol/L) 134 10/14/2022 135 - 145 Potassium Lvl (mmol/L) 4.0 10/14/2022 3.5 - 5.3 Chloride (mmol/L) 98 10/14/2022 101 - 111 CO2 (mmol/L) 25 10/14/2022 21 - 31 AGAP (mEq/L) 15 10/14/2022 6 - 16 BUN/Creat Ratio 13 10/14/2022 10 - 20 Calcium Lvl (mg/dL) 8.6 10/14/2022 8.9 - 11.1 ALT (Int._Unit/L) 50 10/14/2022 6 - 46 AST (Int._Unit/L) 43 10/14/2022 5 - 43 Albumin Lvl (gm/dL) 3.6 10/14/2022 3.3 - 5.0 Alk Phos (Int._Unit/L) 76 10/14/2022 21 - 98 Bili Total (mg/dL) 0.7 10/14/2022 0.0 - 1.1 Total Protein (gm/dL) 7.4 10/14/2022 6.0 - 7.8 Globulin (gm/dL) 3.8 10/14/2022 1.4 - 4.0 A/G Ratio 1.0 10/14/2022 1.1 - 2.2 Glucose Lvl (mg/dL) 173 10/14/2022 55 - 199 eGFR (mL/min/1.73 m2) >60 10/14/2022 >=59 - eGFR AA (mL/min/1.73 m2) >60 10/14/2022 >=59 - QuantiFERON Criteria Comment 10/14/2022 QuantiFERON TB1 Ag Value (International_Unit/mL) 0.06 10/14/2022 QuantiFERON TB2 Ag Value (International_Unit/mL) 0.05 10/14/2022 QuantiFERON Nil Value (International_Unit/mL) 0.04 10/14/2022 QuantiFERON Mitogen Value (International_Unit/mL) >10.00 10/14/2022 QuantiFERON-TB Gold Plus Negative 10/14/2022 Negative - Normal [facility] CHEMISTRYOrdered By: SYSTEM SYSTEM on 01-10-2023 Creatinine [Mass/Vol] 0.8 mg/dL Normal 0.5 - 1.3 mg/dL [facility] Remisol GFR/1.73 sq M.predicted among blacks MDRD (S/P/Bld) [Vol rate/Area] mL/min/1.73 m2 Normal >=59mL/min/1.73 m2 [facility] Chem S GFR/1.73 sq M.predicted among non-blacks MDRD (S/P/Bld) [Vol rate/Area] mL/min/1.73 m2 Normal >=59mL/min/1.73 m2 [facility] Chem S CHEMISTRYOrdered By: Rico Wilcox on 12-30-2022 Albumin DL <= 20 mg/L (U) [Mass/Vol] 110.2 microgram/mL High 0.0 - 19.0 mcg/mL [facility] Remisol Albumin Elph (U) [Mass fraction] 27.5 mg/dL Invalid Interpretation Code [facility] Remisol Creatinine (U) [Mass/Vol] 249.2 mg/dL Invalid Interpretation Code [facility] Remisol U Prot/Creat Ratio 110.40 mg/gm Cr Normal 0.00 - 200.00 mg/gm Cr [facility] CHEMISTRYOrdered By: SYSTEM SYSTEM on 10-14-2022 Albumin [Mass/Vol] 3.6 g/dL Normal 3.3 - 5.0 gm/dL [facility] Remisol Albumin/Globulin [Mass ratio] 1.0 {ratio} Low 1.1 - 2.2 [facility] Remisol ALP [Catalytic activity/Vol] 76 [iU]/d Normal 21 - 98 Int._Unit/L [facility] Rem[facility] ALT No additional P-5'-P [Catalytic activity/Vol] 50 [iU]/d High 6 - 46 Int._Unit/L [facility] Anion gap [Moles/Vol] 15 mmol/L Normal 6 - 16 mEq/L [facility] AST [Catalytic activity/Vol] 43 [iU]/d Normal 5 - 43 Int._Unit/L [facility] Bilirubin [Mass/Vol] 0.7 mg/dL Normal 0.0 - 1.1 mg/dL [facility] Calcium [Mass/Vol] 8.6 mg/dL Low 8.9 - 11.1 mg/dL [facility] Chloride [Moles/Vol] 98 mmol/L Low 101 - 111 mmol/ L [facility] CO2 [Moles/Vol] 25 mmol/L Normal 21 - 31 mmol/L [facility] Creatinine [Mass/Vol] 0.7 mg/dL Normal 0.5 - 1.3 mg/dL [facility] GFR/1.73 sq M.predicted among blacks MDRD (S/P/Bld) [Vol rate/Area] mL/min/1.73 m2 Normal >=59mL/min/1.73 m2 [facility] Chem S GFR/1.73 sq M.predicted among non-blacks MDRD (S/P/Bld) [Vol rate/Area] mL/min/1.73 m2 Normal >=59mL/min/1.73 m2 [facility] Chem S Globulin (S) [Mass/Vol] 3.8 g/dL Normal 1.4 - 4.0 gm/dL [facility] Remisol Glucose [Mass/Vol] 173 mg/dL Normal 55 - 199 mg/dL [facility] Remisol Potassium [Moles/Vol] 4.0 mmol/L Normal 3.5 - 5.3 mmol/L [facility] Remisol Protein [Mass/Vol] 7.4 g/dL Normal 6.0 - 7.8 gm/dL [facility] Remisol Sodium [Moles/Vol] 134 mmol/L Low 135 - 145 mmol/L [facility] Remisol Urea nitrogen [Mass/Vol] 9 mg/dL Normal 5 - 21 mg/dL [facility] Remisol Urea nitrogen/Creatinine [Mass ratio] 13 mg/mg Normal 10 - 20 [facility] Rem[facility] HEMATOLOGYOrdered By: SYSTEM SYSTEM on 10-14-2022 Basophils/100 WBC (Bld) 0.4 % Normal 0.0 - 2.0 % [facility] Basophils/Leukocytes Auto (Bld) [Pure # fraction] 0.0 E9/L Normal 0.0 - 0.2 E9/L [facility] Eosinophils/100 WBC (Bld) 2.6 % Normal 0.0 - 8.0 % [facility] Eosinophils/Leukocyt es Auto (Bld) [Pure # fraction] 0.2 E9/L Normal 0.0 - 0.5 E9/L [facility] Lymphocytes/100 WBC (Bld) 22.6 % Normal 14.0 - 50.0 % [facility] Lymphocytes/Leukocyt es Auto (Bld) [Pure # fraction] 1.8 E9/L Normal 1.0 - 4.0 E9/L [facility] Monocytes/100 WBC (Bld) 6.4 % Normal 4.0 - 14.0 % [facility] Monocytes/Leukocytes Auto (Bld) [Pure # fraction] 0.5 E9/L Normal 0.2 - 1.0 E9/L [facility] Neutrophils/100 WBC (Bld) 68.0 % Normal 36.0 - 75.0 % [facility] Neutrophils/Leukocyt es Auto (Bld) [Pure # fraction] 5.3 E9/L Normal 2.0 - 7.5 E9/L [facility] HEMATOLOGYOrdered By: Korin Mendoza on 10-14-2022 Erythrocyte distribution width (RBC) [Ratio] 13.6 % Normal 10.9 - 14.2 % [facility] Hematocrit (Bld) [Volume fraction] 40.0 % Normal 34.0 - 46.0 % [facility] Hemoglobin (Bld) [Mass/Vol] 13.3 g/dL Normal 12.0 - 16.0 gm/dL [facility] MCH (RBC) [Entitic mass] 30.5 pg Normal 27.0 - 34.0 pg [facility] MCHC (RBC) [Mass/Vol] 33.2 g/dL Normal 31.4 - 36.0 gm/dL [facility] MCV (RBC) [Entitic vol] 92.0 fL Normal 80.0 - 100.0 fL [facility] Platelet mean volume (Bld) [Entitic vol] 9.1 fL Normal 6.4 - 10.8 fL [facility] Platelets (Bld) [#/Vol] 320.0 E9/L Normal 150.0 - 500.0 E9/L [facility] RBC (Bld) [#/Vol] 4.4 E12/L Normal 4.3 - 5.9 E12/L [facility] WBC corrected for nucl RBC Auto (Bld) [#/Vol] 7.9 E9/L Normal 4.0 - 11.0 E9/L [facility] PAP ACOG PANEL 2: 30 to 65on 04-28-2022 . . Normal [facility] Comment on above: Result Comment: Perf ormed at: WB Performed By: #### [id number] #### [facility] [address] [place] [address] Dr. Anitra Irwin Age Gdln ACOG Testing 30-65 Normal [facility] Comment on above: Performed By: #### [id number] #### [facility] [address] [place] [address] Dr. Anitra Irwin DIAGNOSIS: Comment Normal [facility] Comment on above: Result Comment: NEGA TIVE FOR INTRAEPITHELIAL LESION OR MALIGNANCY. Performed at: WB Performed By: #### [id number] #### [facility] [address] [place] [address] Dr. Anitra Irwin HPV Aptima Negative Normal Negative [facility] Comment on above: Result Comment: This nucleic acid amplification test detects fourteen high-risk HPV types (16,18,31,33,35,39,45,51,52,56,58,59,66,68) without differentiation. Performed at: =G Performed By: #### [id number] #### [facility] [address] [place] [address] Dr. Anitra Irwin Methodology: Comment Normal [facility] Comment on above: Result Comment: This liquid based ThinPrep(R) pap test was screened with the use of an image guided system. Performed at: WB Performed By: #### [id number] #### [facility] [address] [place] [address] Dr. Anitra Irwin Note: Comment Normal [facility] Comment on above: Result Comment: The Pap smear is a screening test designed to aid in the detection of premalignant and malignant conditions of the uterine cervix. It is not a diagnostic procedure and should not be used as the sole means of detecting cervical cancer. Both false-positive and false-negative reports do occur. . Performed at: WB Performed By: #### [id number] #### [facility] [address] [place] [address] Dr. Anitra Irwin Performed by: Comment Normal [facility] Comment on above: Result Comment: Miguelina Andrade Applique Cutter (ASCP) Performed at: WB Performed By: #### [id number] #### [facility] [address] [place] [address] Dr. Anitra Irwin Specimen adequacy: Comment Normal [facility] Comment on above: Result Comment: Sati sfactory for evaluation. No endocervical component is identified. Performed at: WB Performed By: #### [id number] #### [facility] [address] [place] [address] Dr. Anitra Irwin CHEMISTRYOrdered By: SYSTEM SYSTEM on 03-29-2022 Albumin [Mass/Vol] 3.2 g/dL Low 3.3 - 5.0 gm/dL [facility] Albumin/Globulin [Mass ratio] 0.9 {ratio} Low 1.1 - 2.2 [facility] ALP [Catalytic activity/Vol] 53 [iU]/d Normal 21 - 98 Int._Unit/L [facility] ALT No additional P-5'-P [Catalytic activity/Vol] 39 [iU]/d Normal 6 - 46 Int._Unit/L [facility] Anion gap [Moles/Vol] 12 mmol/L Normal 6 - 16 mEq/L [facility] AST [Catalytic activity/Vol] 42 [iU]/d Normal 5 - 43 Int._Unit/L [facility] Bilirubin [Mass/Vol] 0.9 mg/dL Normal 0.0 - 1.1 mg/dL [facility] Calcium [Mass/Vol] 8.4 mg/dL Low 8.9 - 11.1 mg/dL [facility] Chloride [Moles/Vol] 103 mmol/L Normal 101 - 111 mmol/ L [facility] CO2 [Moles/Vol] 24 mmol/L Normal 21 - 31 mmol/L [facility] Creatinine [Mass/Vol] 0.7 mg/dL Normal 0.5 - 1.3 mg/dL [facility] GFR/1.73 sq M.predicted among blacks MDRD (S/P/Bld) [Vol rate/Area] mL/min/1.73 m2 Normal >=59mL/min/1.73 m2 [facility] Chem S GFR/1.73 sq M.predicted among non-blacks MDRD (S/P/Bld) [Vol rate/Area] mL/min/1.73 m2 Normal >=59mL/min/1.73 m2 [facility] Chem S Globulin (S) [Mass/Vol] 3.4 g/dL Normal 1.4 - 4.0 gm/dL [facility] Glucose [Mass/Vol] 144 mg/dL Normal 55 - 199 mg/dL [facility] Potassium [Moles/Vol] 3.9 mmol/L Normal 3.5 - 5.3 mmol/L [facility] Protein [Mass/Vol] 6.6 g/dL Normal 6.0 - 7.8 gm/dL [facility] Sodium [Moles/Vol] 135 mmol/L Normal 135 - 145 mmol/L [facility] Urea nitrogen [Mass/Vol] 8 mg/dL Normal 5 - 21 mg/dL [facility] Urea nitrogen/Creatinine [Mass ratio] 11 mg/mg Normal 10 - 20 [facility] CHEMISTRYOrdered By: Kitty Bonilla on 03-29-2022 Natriuretic peptide B (Bld) [Mass/Vol] 69 pg/mL Normal 5 - 80 pg/mL [facility] COAGULATIONOrdered By: Alexus Duong on 03-29-2022 aPTT Coag (PPP) [Time] 28.6 s Normal 25.1 - 36.5 second(s) [facility] Auto Coag INR Coag (PPP) [Relative time] 1.2 {INR} Invalid Interpretation Code [facility] Auto Coag PT Coag (PPP) [Time] 14.4 s High 10.2 - 12.9 second(s) [facility] Auto Coag HEMATOLOGYOrdered By: SYSTEM SYSTEM on 03-29-2022 Basophils/100 WBC (Bld) 0.6 % Normal 0.0 - 2.0 % [facility] Basophils/Leukocytes Auto (Bld) [Pure # fraction] 0.1 E9/L Normal 0.0 - 0.2 E9/L [facility] Eosinophils/100 WBC (Bld) 1.6 % Normal 0.0 - 8.0 % [facility] Eosinophils/Leukocyt es Auto (Bld) [Pure # fraction] 0.1 E9/L Normal 0.0 - 0.5 E9/L [facility] Lymphocytes/100 WBC (Bld) 23.5 % Normal 14.0 - 50.0 % [facility] Lymphocytes/Leukocyt es Auto (Bld) [Pure # fraction] 1.9 E9/L Normal 1.0 - 4.0 E9/L [facility] Monocytes/100 WBC (Bld) 7.2 % Normal 4.0 - 14.0 % [facility] Monocytes/Leukocytes Auto (Bld) [Pure # fraction] 0.6 E9/L Normal 0.2 - 1.0 E9/L [facility] Neutrophils/100 WBC (Bld) 67.1 % Normal 36.0 - 75.0 % [facility] Neutrophils/Leukocyt es Auto (Bld) [Pure # fraction] 5.4 E9/L Normal 2.0 - 7.5 E9/L [facility] HEMATOLOGYOrdered By: Gissel Bonilla on 03-29-2022 Erythrocyte distribution width (RBC) [Ratio] 13.8 % Normal 10.9 - 14.2 % [facility] Hematocrit (Bld) [Volume fraction] 39.7 % Normal 34.0 - 46.0 % [facility] Hemoglobin (Bld) [Mass/Vol] 13.1 g/dL Normal 12.0 - 16.0 gm/dL [facility] MCH (RBC) [Entitic mass] 31.9 pg Normal 27.0 - 34.0 pg [facility] MCHC (RBC) [Mass/Vol] 32.9 g/dL Normal 31.4 - 36.0 gm/dL [facility] MCV (RBC) [Entitic vol] 96.8 fL Normal 80.0 - 100.0 fL [facility] Platelet mean volume (Bld) [Entitic vol] 9.3 fL Normal 6.4 - 10.8 fL [facility] Platelets (Bld) [#/Vol] 275.0 E9/L Normal 150.0 - 500.0 E9/L [facility] RBC (Bld) [#/Vol] 4.1 E12/L Low 4.3 - 5.9 E12/L [facility] WBC corrected for nucl RBC Auto (Bld) [#/Vol] 8.1 E9/L Normal 4.0 - 11.0 E9/L [facility] VAGINITIS/VAGINOSIS DNA PROB Roger 02-04-2022 Cece species Negative Normal Negative [facility] Comment on above: Performed By: #### V AGINT #### [facility] [address] [place] [address] [id number] [address] Anitra Irwin Gardnerella vaginalis Negative Normal Negative [facility] Comment on above: Performed By: #### V AGINT #### [facility] [address] [address] [address] Anitra Irwin Trichomonas vaginalis Negative Normal Negative [facility] Comment on above: Performed By: #### V AGINT #### [facility] [address] [address] [address] Anitra Irwin Ammoniaon 01-12-2022 Ammonia (P) [Moles/Vol] 31 umol/L Normal 11-35 [facility] Comment on above: Order Comment: Reaso n for Exam Elevated liver function tests Result Comment: PERF ORMED BY: [place] [address] PATHOLOGIST [employer]OX BLANK MACHINE OPERATOR HELPER DANIELLE RAVI M.D. Performed By: #### P T, GGT, CMP, AMM, CBC #### [address] Complete Blood Count Auto Di ffon 01-12-2022 Basophils (Bld) [#/Vol] 0.0 10*3/uL Normal 0.0-0.2 [facility] Comment on above: Order Comment: Reaso n for Exam Elevated liver function tests Result Comment: PERF ORMED BY: [place] [address] PATHOLOGIST [employer]OX BLANK MACHINE OPERATOR HELPER DANIELLE RAVI M.D. Performed By: #### P T, GGT, CMP, AMM, CBC #### [place] [address] [place] Basophils/100 WBC (Bld) 0.6 % Normal . [facility] Comment on above: Order Comment: Reaso n for Exam Elevated liver function tests Performed By: #### P T, GGT, CMP, AMM, CBC #### [place] [address] [place] Eosinophils (Bld) [#/Vol] 0.1 10*3/uL Normal 0.0-0.45 [facility] Comment on above: Order Comment: Reaso n for Exam Elevated liver function tests Performed By: #### P T, GGT, CMP, AMM, CBC #### [place] [address] [place] Eosinophils/100 WBC (Bld) 2.0 % Normal . [facility] Comment on above: Order Comment: Reaso n for Exam Elevated liver function tests Performed By: #### P T, GGT, CMP, AMM, CBC #### [address] Erythrocyte distribution width (RBC) [Ratio] 14.2 % Normal 11.9-15.3 [facility] Comment on above: Order Comment: Reaso n for Exam Elevated liver function tests Performed By: #### P T, GGT, CMP, AMM, CBC #### [address] Hematocrit (Bld) [Volume fraction] 44.1 % Normal 34.0-46.4 [facility] Comment on above: Order Comment: Reaso n for Exam Elevated liver function tests Performed By: #### P T, GGT, CMP, AMM, CBC #### [address] Hemoglobin (Bld) [Mass/Vol] 14.7 g/dL Normal 11.8-15.4 [facility] Comment on above: Order Comment: Reaso n for Exam Elevated liver function tests Performed By: #### P T, GGT, CMP, AMM, CBC #### [place] [address] [place] Lymphocytes (Bld) [#/Vol] 2.0 10*3/uL Normal 1.00-4.8 [facility] Comment on above: Order Comment: Reaso n for Exam Elevated liver function tests Performed By: #### P T, GGT, CMP, AMM, CBC #### [place] [address] [place] Lymphocytes/100 WBC (Bld) 31.5 % Normal . [facility] Comment on above: Order Comment: Reaso n for Exam Elevated liver function tests Performed By: #### P T, GGT, CMP, AMM, CBC #### [address] MCH (RBC) [Entitic mass] 31.4 pg Normal 24.7-34.3 [facility] Comment on above: Order Comment: Reaso n for Exam Elevated liver function tests Performed By: #### P T, GGT, CMP, AMM, CBC #### [facility] [address] [place] [address] MCV (RBC) [Entitic vol] 94.0 fL Normal 80-100 [facility] Comment on above: Order Comment: Reaso n for Exam Elevated liver function tests Performed By: #### P T, GGT, CMP, AMM, CBC #### [address] Mean Corpuscular HGB Conc 33.4 g/dL Normal 32.0-35.0 [facility] Comment on above: Order Comment: Reaso n for Exam Elevated liver function tests Performed By: #### P T, GGT, CMP, AMM, CBC #### [address] Monocytes (Bld) [#/Vol] 0.4 10*3/uL Normal 0.0-0.8 [facility] Comment on above: Order Comment: Reaso n for Exam Elevated liver function tests Performed By: #### P T, GGT, CMP, AMM, CBC #### [facility] [address] [place] [address] Monocytes/100 WBC (Bld) 7.1 % Normal . [facility] Comment on above: Order Comment: Reaso n for Exam Elevated liver function tests Performed By: #### P T, GGT, CMP, AMM, CBC #### [facility] [address] [place] [address] Neutrophils (Bld) [#/Vol] 3.7 10*3/uL Normal 1.8-7.7 [facility] Comment on above: Order Comment: Reaso n for Exam Elevated liver function tests Performed By: #### P T, GGT, CMP, AMM, CBC #### [address] Neutrophils/100 WBC (Bld) 58.8 % Normal . [facility] Comment on above: Order Comment: Reaso n for Exam Elevated liver function tests Performed By: #### P T, GGT, CMP, AMM, CBC #### [facility] [address] Nucleated RBC/100 WBC (Bld) [Ratio] 0.1 % Normal 0-0.5 [facility] Comment on above: Order Comment: Reaso n for Exam Elevated liver function tests Performed By: #### P T, GGT, CMP, AMM, CBC #### [facility] [address] Platelet mean volume (Bld) [Entitic vol] 10.0 fL Normal 6.3-10.7 [facility] Comment on above: Order Comment: Reaso n for Exam Elevated liver function tests Performed By: #### P T, GGT, CMP, AMM, CBC #### [address] Platelets (Bld) [#/Vol] 283 10*3/uL Normal 150-450 [facility] Comment on above: Order Comment: Reaso n for Exam Elevated liver function tests Performed By: #### P T, GGT, CMP, AMM, CBC #### [address] RBC (Bld) [#/Vol] 4.69 10*6/uL Normal 3.60-5.00 [facility] Comment on above: Order Comment: Reaso n for Exam Elevated liver function tests Performed By: #### P T, GGT, CMP, AMM, CBC #### [address] WBC (Bld) [#/Vol] 6.3 10*3/uL Normal 4.5-11.0 [facility] Comment on above: Order Comment: Reaso n for Exam Elevated liver function tests Performed By: #### P T, GGT, CMP, AMM, CBC #### [address] Comprehensive Metabolic Pane reina 01-12-2022 Albumin [Mass/Vol] 3.3 g/dL Normal 3.2-5.5 [facility] Comment on above: Order Comment: Reaso n for Exam Elevated liver function tests Performed By: #### P T, GGT, CMP, AMM, CBC #### [facility] [address] [place] [address] [place] Albumin/Globulin [Mass ratio] 1.1 {ratio} Normal [facility] Comment on above: Order Comment: Reaso n for Exam Elevated liver function tests Performed By: #### P T, GGT, CMP, AMM, CBC #### [facility] [address] [place] [address] [place] ALP [Catalytic activity/Vol] 58 U/L Normal 32-92 [facility] Comment on above: Order Comment: Reaso n for Exam Elevated liver function tests Performed By: #### P T, GGT, CMP, AMM, CBC #### [facility] [address] [place] [address] [place] ALT [Catalytic activity/Vol] 109 U/L High 10-60 [facility] Comment on above: Order Comment: Reaso n for Exam Elevated liver function tests Performed By: #### P T, GGT, CMP, AMM, CBC #### [facility] [address] [place] [address] [place] AST [Catalytic activity/Vol] 113 U/L High 10-42 [facility] Comment on above: Order Comment: Reaso n for Exam Elevated liver function tests Performed By: #### P T, GGT, CMP, AMM, CBC #### [facility] [address] [place] [address] [place] Bilirubin [Mass/Vol] 0.7 mg/dL Normal 0.3-1.2 [facility] Comment on above: Order Comment: Reaso n for Exam Elevated liver function tests Performed By: #### P T, GGT, CMP, AMM, CBC #### [facility] [address] [place] [address] [place] Calcium [Mass/Vol] 9.2 mg/dL Normal 8.2-10.2 [facility] Comment on above: Order Comment: Reaso n for Exam Elevated liver function tests Performed By: #### P T, GGT, CMP, AMM, CBC #### [address] Chloride [Moles/Vol] 99 mmol/L Normal 95-114 [facility] Comment on above: Order Comment: Reaso n for Exam Elevated liver function tests Performed By: #### P T, GGT, CMP, AMM, CBC #### [address] CO2 [Moles/Vol] 24.6 mmol/L Normal 22.0-30.0 [facility] Comment on above: Order Comment: Reaso n for Exam Elevated liver function tests Performed By: #### P T, GGT, CMP, AMM, CBC #### [address] Creatinine [Mass/Vol] 0.72 mg/dL Normal 0.44-1.03 [facility] Comment on above: Order Comment: Reaso n for Exam Elevated liver function tests Performed By: #### P T, GGT, CMP, AMM, CBC #### [address] Estimated GFR ( Krupa > 60 Normal [facility] Comment on above: Order Comment: Reaso n for Exam Elevated liver function tests Result Comment: GFR estimated reference range: According to KDOQI guidelines, <60 ml/min/1.73m2 is sufficient to diagnose a patient with chronic kidney disease. Performed By: #### P T, GGT, CMP, AMM, CBC #### [address] Estimated GFR (Non- Am > 60 Normal [facility] Comment on above: Order Comment: Reaso n for Exam Elevated liver function tests Performed By: #### P T, GGT, CMP, AMM, CBC #### [place] [address] [place] Globulin (S) [Mass/Vol] 3.0 g/dL Normal [facility] Comment on above: Order Comment: Reaso n for Exam Elevated liver function tests Performed By: #### P T, GGT, CMP, AMM, CBC #### [place] [address] [place] Glucose [Mass/Vol] 143 mg/dL High 70-100 [facility] Comment on above: Order Comment: Reaso n for Exam Elevated liver function tests Result Comment: [place] Glucose Reference Range is dependent on time and content of last meal. Glucose of more than 200 mg/dL in a nonstressed, ambulatory subject supports the diagnosis of Diabetes Mellitus. ADA recommended reference range Performed By: #### P T, GGT, CMP, AMM, CBC #### [facility] [address] [place] [address] Potassium [Moles/Vol] 4.2 mmol/L Normal 3.5-5.1 [facility] Comment on above: Order Comment: Reaso n for Exam Elevated liver function tests Performed By: #### P T, GGT, CMP, AMM, CBC #### [address] Protein [Mass/Vol] 6.3 g/dL Normal 6.1-7.9 [facility] Comment on above: Order Comment: Reaso n for Exam Elevated liver function tests Performed By: #### P T, GGT, CMP, AMM, CBC #### [facility] [address] [place] [address] [place] Sodium [Moles/Vol] 134 mmol/L Low 136-146 [facility] Comment on above: Order Comment: Reaso n for Exam Elevated liver function tests Performed By: #### P T, GGT, CMP, AMM, CBC #### [facility] [address] [place] [address] [place] Urea nitrogen [Mass/Vol] 8 mg/dL Low 9-23 [facility] Comment on above: Order Comment: Reaso n for Exam Elevated liver function tests Performed By: #### P T, GGT, CMP, AMM, CBC #### [facility] [address] [place] [address] [place] Gamma Glutamyl Transpeptidas roger 01-12-2022 Amylase [Catalytic activity/Vol] 75 U/L High 7-64 [facility] Comment on above: Order Comment: Reaso n for Exam Elevated liver function tests Result Comment: PERF ORMED BY: [place] [address] PATHOLOGIST BOX BLANK MACHINE OPERATOR HELPER DANIELLE RAVI M.D. Performed By: #### P T, GGT, CMP, AMM, CBC #### [address] Prothrombin Time INRon 01-12 INR Coag (PPP) [Relative time] 1.2 {INR} Normal [facility] Comment on above: Order Comment: Reaso n for Exam Elevated liver function tests Result Comment: INR Therapeutic Range A) Pre- and Peroperative OAT started two weeks before surgery. NOT HIP SURGERY: 1.5 - 2.5 HIP SURGERY: 2 - 3 B) Primary and secondary prevention of venous THROMBOSIS: 2 - 3 C) Active venous thrombosis, pulmonary embolism and prevention of recurrent venous thrombosis: 2 - 3 D) Prevention of arterial thromboembolism including patients with mechanical heart valves: 3 - 4.5 PERFORMED BY: [place] [address] PATHOLOGIST BOX BLANK MACHINE OPERATOR HELPER DANIELLE RAVI M.D. Performed By: #### P T, GGT, CMP, AMM, CBC #### [address] PT Coag (PPP) [Time] 13.1 s High 9.0-12.9 [facility] Comment on above: Order Comment: Reaso n for Exam Elevated liver function tests Performed By: #### P T, GGT, CMP, AMM, CBC #### [address] US liveron 01-12-2022 US liver [facility] [place] [address] Ultrasound Report Signed Patient: Tamra Banda MR#: [id number] : 1965 Acct:[id number] Age/Sex: 56 / F ADM Date: 01/12/22 Loc: Room: Type: [facility] Attending Dr: Julio César Srinivasan MD Ordering Provider: Julio César Srinivasan MD Date of Service: 01/12/22 US/ liver: R79.89 Copies to: Julio César Srinivasan MD LIMITED ABDOMINAL ULTRASOUND - liver CLINICAL HISTORY: Elevated liver enzymes COMPARISON: None The gallbladder is physiologically distended without shadowing calculi, wall thickening or pericholecystic fluid. No intra- or extrahepatic biliary dilatation is evident. The common duct measures 3 - 4 mm. The liver shows slight increased echogenicity and decreased penetration that may be fatty infiltration. Focal sparing is possible near the gallbladder fossa. No focal intrahepatic masses are seen. There is appropriate hepatopetal flow within the main portal vein. The pancreas shows no significant sonographic abnormality. Cursory evaluation of the right kidney reveals no hydronephrosis or fluid within Perry's pouch. US/US liver IMPRESSION: NO GALLBLADDER PATHOLOGY. SUSPECTED FATTY LIVER. Impression dictated by: Angle Calle M.D.01/12/2022 4:24 PM Dictation Location: [place] [address] Tech: Kate Benitez Transcribed By: FREDI 01/12/221623 Dictated By: Angle Calle MD 01/12/221621 Signed By: 01/12/221623 [facility] MICRO OTHER TESTSOrdered By: Johnathan De La O on 12-21-2021 Rapid COV Int NEG Ctl Pass (12/21/21 3:05 PM) Normal [facility] Man Sero Rapid COV Int POS Ctl Pass (12/21/21 3:05 PM) Normal [facility] Sero SARS-CoV+SARS-CoV-2 (COVID-19) Ag IA.rapid Ql (Resp) Not Detected (12/21/21 3:05 PM) Normal Not Detected [facility] Man Sero CT ABDOMEN/PELVIS WITH CONTR Gloria 04-16-2018 CT ABDOMEN/PELVIS WITH CONTRAST DATE OF EXAM: Apr 16 2018 2:03PMCLINICAL HISTORY/ Name: MARIELENA CROWLEY MARANDAY:CT ABDOMEN/PELVIS WITH CONTRAST; 04/16/2018 2:03 pmINDICATION:abd pain. Right upper quadrant and right lower quadrant pain with diarrhea. Previous hernia repair and bowel resection.COMPARISON:. ERING CLINICIAN:VICKIE HARTTECHANEL:Derik ous axial images were obtained through the abdomen and pelvis after the administration of 100 mL Isovue-300 intravenous contrast. Oral contrast was administered. Coronal and sagittal reformations were made.FINDINGS:LOWER CHEST:Bibasilar mild dependent atelectasis is present.ABDOMEN:LIVER:T here is fatty infiltration of the liver with small regions of relative sparing adjacent to the gallbladder.BILE DUCTS:Nondilated.GALLBL ADDER:The gallbladder is not distended and without calcified stones.PANCREAS:Within normal limits. No peripancreatic inflammation.SPLEEN:Wit hin normal limits.ADRENAL GLANDS:Within normal limits.KIDNEYS AND URETERS:The kidneys enhance symmetrically without focal lesion. No hydroureteronephrosis bilaterally.Urinary bladder is partially distended but otherwise unremarkable.VESSELS:Th ere is no aneurysmal dilatation of the abdominal aorta. The IVC is within normal limits.BOWEL:There is no bowel obstruction. Appendix is not discretely identified although no regional inflammation is present. There is a right lower abdominal small bowel anastomotic suture line with adjacent small bowel stool-like material compatible with stasis.No focal diverticular disease.PERITONEUM/RETR OPERITONEUM/LYMPH NODES:No ascites or free air, no fluid collection. There has been a hysterectomy.No retroperitoneal fluid collection or lymphadenopathy.ABDOMIN AL WALL:There is a small mildly lobulated fat containing periumbilical hernia without inflammation. There is infraumbilical soft tissue thickening/scar tissue which extends into the anterior subcutaneous tissues. There is a midline pelvic small broad-based ventral hernia containing a short opacified nondilated non thickened small bowel segment. Nonspecific mildly prominent bilateral inguinal nodes are noted.BONE AND SOFT TISSUE:Thoracolumbar mild dextroscoliosis is seen along with multilevel degenerative changes of the spine greatest in the lower lumbar region.CONCLUSION: IMPRESSION:Midline lower pelvic small broad-based ventral hernia containing a short nondilated non thickened small bowel segment. No bowel obstruction.Small mildly lobulated fat containing periumbilical hernia without inflammation. Additional probable scar tissue in the infraumbilical region similar to prior.Some small bowel stool-like material adjacent to a right lower abdominal small bowel anastomosis compatible with stasis/slow transit. No significant small bowel obstruction.Fatty liver. Normal [facility] Creatinine, POCon 04-16-2018 Creatinine 0.7 mg/dL Normal 0.6-1.3 [facility] Comment on above: Performed By: #### C REAP ####[facility] [id number] [place] [address] Glomerular Filtration Rate, POCon 04-16-2018 eGFR (non-black) mL/min/{1.73_m2} Normal [facility] Comment on above: Result Comment: Inte rpretation for Chronic Kidney Disease:Stages 1&2 >60 Healthy or potential kidney damage.Mild decrease of GFR.Stage 3 30-59 Moderate decrease of GFR.Stage 4 15-29 Severe decrease of GFR.Stage 5 <15 Kidney failure or on dialysis. Performed By: #### G FR ####[facility] [address] [place] [address] Vital Signs Date Time Vital Sign Value Performing Clinician Facility 05-07-2024 06:29-0400 Diastolic blood pressure 108 mm[Hg] Kaylinn Dokken [facility] 05-07-2024 06:29-0400 Heart rate 101 /min Kaylinn Dokken [facility] 05-07-2024 06:29-0400 Mean blood pressure 116 mm[Hg] Kaylinn Dokken [facility] 05-07-2024 06:29-0400 Respiratory rate 20 /min Kaylinn Dokken [facility] 05-07-2024 06:29-0400 SaO2% (BldA) [Mass fraction] 96 % Kaylinn Dokken [facility] 05-07-2024 06:29-0400 Systolic blood pressure 131 mm[Hg] Kaylinn Dokken [facility] 05-07-2024 06:00-0400 Hourly Rounding Kaylinn Dokken [facility] 05-07-2024 06:00-0400 Promise to Return Kaylinn Dokken [facility] 05-07-2024 05:28-0400 Diastolic blood pressure 98 mm[Hg] Kaylinn Dokken [facility] 05-07-2024 05:28-0400 Heart rate 106 /min Kaylinn Dokken [facility] 05-07-2024 05:28-0400 Mean blood pressure 112 mm[Hg] Kaylinn Dokken [facility] 05-07-2024 05:28-0400 Respiratory rate 18 /min Kaylinn Dokken [facility] 05-07-2024 05:28-0400 SaO2% (BldA) [Mass fraction] 95 % Kaylinn Dokken [facility] 05-07-2024 05:28-0400 Systolic blood pressure 139 mm[Hg] Kaylinn Dokken [facility] 05-07-2024 05:18-0400 Heart rate 105 /min Kaylinn Dokken [facility] 05-07-2024 05:18-0400 Respiratory rate 20 /min Kaylinn Dokken [facility] 05-07-2024 05:18-0400 SaO2% (BldA) [Mass fraction] 94 % Kaylinn Dokken [facility] 05-07-2024 05:00-0400 Hourly Rounding Kaylinn Dokken [facility] 05-07-2024 05:00-0400 Promise to Return Kaylinn Dokken [facility] 05-07-2024 04:47-0400 Body temperature 98.24 [degF] Kaylinn Dokken [facility] 05-07-2024 04:47-0400 Diastolic blood pressure 87 mm[Hg] Paulylinn Dokken [facility] 05-07-2024 04:47-0400 Heart rate 96 /min Paulylinn Dokken [facility] 05-07-2024 04:47-0400 Mean blood pressure 107 mm[Hg] Paulylinn Dokken [facility] 05-07-2024 04:47-0400 Systolic blood pressure 146 mm[Hg] Paulylinn Dokken [facility] 03-28-2024 13:17-0400 Body temperature 98.6 [degF] Jean Sal [facility] 03-28-2024 13:17-0400 Diastolic blood pressure 91 mm[Hg] Jean Sal [facility] 03-28-2024 13:17-0400 Heart rate 100 /min Jean Sal [facility] 03-28-2024 13:17-0400 Respiratory rate 18 /min Jean Huang [facility] 03-28-2024 13:17-0400 SaO2% (BldA) [Mass fraction] 98 % Jean Huang [facility] 03-28-2024 13:17-0400 Systolic blood pressure 189 mm[Hg] Jean Sal [facility] 02-16-2024 13:07-0400 Blood Pressure Location Brooke ELIZALDE [facility] 02-16-2024 13:07-0400 Diastolic blood pressure 88 mm[Hg] Brooke ELIZALDE [facility] 02-16-2024 13:07-0400 Heart rate 94 /min Brooke THADDEUS [facility] 02-16-2024 13:07-0400 SaO2% (BldA) [Mass fraction] 93 % Brooke THADDEUS [facility] 02-16-2024 13:07-0400 Systolic blood pressure 126 mm[Hg] Brooke THADDEUS [facility] 02-02-2024 10:25-0400 Body temperature 98.6 [degF] Jean Huang [facility] 02-02-2024 10:25-0400 Diastolic blood pressure 100 mm[Hg] Jean Sal [facility] 02-02-2024 10:25-0400 Heart rate 104 /min Jean Huang [facility] 02-02-2024 10:25-0400 Respiratory rate 18 /min Jean Huang [facility] 02-02-2024 10:25-0400 SaO2% (BldA) [Mass fraction] 97 % Jean Huang [facility] 02-02-2024 10:25-0400 Systolic blood pressure 167 mm[Hg] Jena Sal [facility] 11-20-2023 13:26-0500 Blood Pressure Location Brooke THADDEUS [facility] 11-20-2023 13:26-0500 Diastolic blood pressure 78 mm[Hg] Brooke THADDEUS [facility] 11-20-2023 13:26-0500 Heart rate 97 /min Brooke THADDEUS [facility] 11-20-2023 13:26-0500 SaO2% (BldA) [Mass fraction] 96 % Brooke ELIZALDE [facility] 11-20-2023 13:26-0500 Systolic blood pressure 138 mm[Hg] Brooke ELIZALDE [facility] 2023 15:22-0400 Body temperature 98.24 [degF] Jean Huang [facility] 2023 15:22-0400 Diastolic blood pressure 71 mm[Hg] Jean Huang [facility] 2023 15:22-0400 Heart rate 92 /min Jean Huang [facility] 2023 15:22-0400 Respiratory rate 18 /min Jean Huang [facility] 2023 15:22-0400 SaO2% (BldA) [Mass fraction] 98 % Jean Huang [facility] 2023 15:22-0400 Systolic blood pressure 131 mm[Hg] Jean Huang [facility] 02-17-2023 10:57-0400 Blood Pressure Location Foreign Rodrigues [facility] 02-17-2023 10:57-0400 Diastolic blood pressure 83 mm[Hg] Foreign Rodrigues [facility] [place] 02-17-2023 10:57-0400 Heart rate 80 /min Foreign Rodrigues [facility] [place] 02-17-2023 10:57-0400 SaO2% (BldA) [Mass fraction] 94 % Foreign Dobsonzoilaced [facility] [place] 02-17-2023 10:57-0400 Systolic blood pressure 120 mm[Hg] Foreign Dobsonzoilaced [facility] [place] 12-30-2022 14:24-0500 Blood Pressure Location Boroke THADDEUS [facility] 12-30-2022 14:24-0500 Diastolic blood pressure 84 mm[Hg] Brooke THADDEUS [facility] 12-30-2022 14:24-0500 Heart rate 102 /min Brooke THADDEUS [facility] 12-30-2022 14:24-0500 Respiratory rate 96 /min Brooke THADDEUS [facility] 12-30-2022 14:24-0500 Systolic blood pressure 126 mm[Hg] Brooke THADDEUS [facility] 11-28-2022 15:38-0500 Body temperature 98.24 [degF] Foreign Mckeon [facility] 11-28-2022 15:38-0500 Diastolic blood pressure 80 mm[Hg] Foreign Mckeon [facility] 11-28-2022 15:38-0500 Heart rate 100 /min Foreign Michaele [facility] 11-28-2022 15:38-0500 Respiratory rate 16 /min Foreign Mckeon [facility] 11-28-2022 15:38-0500 SaO2% (BldA) [Mass fraction] 98 % Foreign Mckeon [facility] 11-28-2022 15:38-0500 Systolic blood pressure 152 mm[Hg] Foreign Mckeon [facility] 05-06-2022 16:50-0400 Blood Pressure Location Brooke ELIZALDE [facility] 05-06-2022 16:50-0400 Diastolic blood pressure 78 mm[Hg] Brooke ELIZALDE [facility] 05-06-2022 16:50-0400 Systolic blood pressure 126 mm[Hg] Brooke MENSAHFIELD [facility] 03-29-2022 10:38-0400 Body temperature 98.96 [degF] Foreign Mckeon [facility] 03-29-2022 10:38-0400 Diastolic blood pressure 81 mm[Hg] Foreign Mckeon [facility] 03-29-2022 10:38-0400 Heart rate 102 /min Foreign Mckeon [facility] 03-29-2022 10:38-0400 Respiratory rate 18 /min Foreign Mckeon [facility] 03-29-2022 10:38-0400 SaO2% (BldA) [Mass fraction] 97 % Foreign Mckeon [facility] 03-29-2022 10:38-0400 Systolic blood pressure 129 mm[Hg] Foreign Mckeon [facility] 12-28-2021 15:45-0500 Body height 170.18 cm Julio César Bart Other [employer] Other 12-28-2021 15:45-0500 Body mass index (BMI) [Ratio] 44.48 kg/m2 Julio César Srinivasan Other [employer] Other 12-28-2021 15:45-0500 Body weight 128.82 kg Julio César Srinivasan Other [employer] Other Encounters Encounter Date Encounter Type Care Provider Facility Start: 05-07-2024 End: 05-07-2024 Emergency department patient visit Ruel Mohan [facility] Start: 04-09-2024 End: 04-09-2024 ambulatory EL ZARATE Not Available Start: 03-28-2024 End: 03-28-2024 Emergency department patient visit Jean Huang [facility] Start: 03-28-2024 End: 03-28-2024 ambulatory Brooke ELIZALDE Facility:[facility] Start: 03-28-2024 End: 03-28-2024 Patient encounter procedure Brooke ELIZALDE [facility] Start: 03-20-2024 End: 03-20-2024 ambulatory FRANCISCO J SCOTT Not Available Start: 02-16-2024 End: 02-16-2024 ambulatory Brooke ELIZALDE Facility:[facility] Start: 02-16-2024 End: 02-16-2024 Patient encounter procedure Brooke ELIZALDE [facility] Start: 02-08-2024 End: 02-08-2024 ambulatory EL ZARATE Not Available Start: 02-02-2024 End: 02-02-2024 Emergency department patient visit Jean Huang [facility] Start: 11-24-2023 End: 11-24-2023 ambulatory Brooke ELIZALDE Facility:[facility] Start: 11-24-2023 End: 11-24-2023 Patient encounter procedure Brooke ELIZALDE [facility] Start: 11-20-2023 End: 11-20-2023 ambulatory Brooke ELIZALDE Facility:[facility] Start: 11-20-2023 End: 11-20-2023 Patient encounter procedure Brooke ELIZALDE [facility] Start: 10-10-2023 End: 10-10-2023 ambulatory Brooke ELIZALDE Facility:[facility] Start: 10-10-2023 End: 10-10-2023 Patient encounter procedure DASH STAPLETON [facility] Start: 08-04-2023 End: 08-04-2023 ambulatory Brooke ELIZALDE Facility:[facility] Start: 2023 End: 2023 Emergency department patient visit Jean Huang [facility] Start: 04-19-2023 End: 04-19-2023 ambulatory [facility] Facility:[facility] Start: 02-17-2023 End: 02-17-2023 Patient encounter procedure Foreign Rodrigues [facility] [place] Start: 01-23-2023 End: 01-23-2023 Patient encounter procedure Brooke ELIZALDE [facility] Start: 01-10-2023 End: 01-10-2023 Patient encounter procedure Luis Manuel Abernathy [facility] Start: 01-04-2023 End: 01-28-2023 Pre-admission assessment Brooke ELIZALDE [facility] Start: 01-02-2023 End: 01-02-2023 Patient encounter procedure Brooke ELIZALDE [facility] Start: 12-30-2022 End: 12-30-2022 Lab Drop off Brooke ELIZALDE [facility] Start: 12-30-2022 End: 12-30-2022 Patient encounter procedure Brooke ELIZALDE [facility] Start: 11-28-2022 End: 11-28-2022 Emergency department patient visit Foreign Mckeon [facility] Start: 10-14-2022 End: 10-14-2022 Patient encounter procedure DASH STAPLETON [facility] Start: 05-06-2022 End: 05-06-2022 Patient encounter procedure Brooke ELIZALDE [facility] Start: 04-04-2022 End: 04-04-2022 ambulatory Julio César Srinivasan Other [employer] Other Start: 04-04-2022 Telephone encounter Julio César [facility] [employer] Start: 03-29-2022 End: 03-29-2022 Emergency department patient visit Foreign Mckeon [facility] Start: 03-07-2022 End: 03-07-2022 ambulatory Alexus Rodriguez Other [employer] Other Start: 03-07-2022 Telephone encounter Alexus Padilla [facility] Start: 03-03-2022 End: 03-03-2022 ambulatory Alexus Rodriguez Other [employer] Other Start: 03-03-2022 Telephone encounter Alexus Padilla [facility] Start: 02-02-2022 End: 02-02-[address] JAZMIN MENDOZA Facility: Start: 12-28-2021 End: 12-28-2021 ambulatory Julio César Srinivasan Other [employer] [facility] [employer] Other Start: 12-28-2021 Office outpatient ne w 45 minutes Julio César Srinivasan [facility] Start: 12-21-2021 End: 03-21-2022 Recurring Brooke ELIZALDE [facility] Start: 04-17-2019 Patient encounter procedure Brooke Elizalde Facility:[id number] Start: 01-21-2019 Patient encounter procedure Brooke Elizalde Facility:[id number] Start: 04-16-2018 Ambulatory VICKIE M HART Facility :[place] Start: 04-16-2018 Patient encounter Facil [id number] Procedures Date Procedure Procedure Detail Performing Clinician Start: 05-07-2021 Colonoscopy Brooke ELIZALDE Start: 05-10-2016 Colonoscopy Brooke ELIZALDE Start: 10-30-2014 Laparotomy Brooke ELIZALDE Start: 12-12-2011 Repair of ventral hernia Repai r of ventral hernia( Confirmed ) Brooke ELIZALDE Start: 10-30-2011 Hernia repair Brooke ELIZALDE Start: 10-30-2003 H/O: hysterectomy hysterectomy ( Confirmed ) Brooke ELIZALDE Appendectomy Brooke SANTANA ELMarsha History of total hysterectomy Brooke ELIZALDE MULTIPLE HERNIA REPAIRS Carlos Manueli loretta ELIZALDE Plan of Treatment Date Care Activity Detail Author Start: 06-13-2024 ambulatory Ambulatory [facility] Start: 05-21-2024 ambulatory Ambulatory Facility:[facility] Immunizations Immunization Date Immunization Notes Care Provider Fa [facility] 03-22-2021 SARS-CoV-2 (COVID-19 ) mRNA BNT-162b2 vax Brooke ELIZALDE [facility] 03-21-2021 SARS-CoV-2 (COVID-19 ) mRNA BNT-162b2 vax Brooke ELIZALDE [facility] Comment on above: Result Comment: [employer] administered Result Comment: [employer] administered 03-01-2021 SARS-CoV-2 (COVID-19 ) mRNA BNT-162b2 vax Brooke ELIZALDE [facility] Comment on above: Result Comment: scan tabitha ImpactSIIS Result Comment: scan tabitha [employer] 12-17-2011 influenza, seasonal, injectable Brooke ELIZALDE [facility] Comment on above: Reason for Medicatio n: Other (see comment) Reason for Medicatio n: Other (see comment) 12-17-2011 pneumococcal polysaccharide vaccine, 23 valent Brooke ELIZALDE [facility] Comment on above: Reason for Medicatio n: Other (see comment) Reason for Medicatio n: Other (see comment) NEGATED: Highlighted row has not occurred!11-20-2023 influenza virus vaccine, unspecified formulation Brooke ELIZALDE [facility] NEGATED: Highlighted row has not occurred!08-04-2023 influenza virus vaccine, unspecified formulation DASH STAPLETON [facility] NEGATED: Highlighted row has not occurred!12-30-2022 influenza virus vaccine, unspecified formulation Brooke ELIZALDE [facility] NEGATED: Highlighted row has not occurred!12-21-2021 influenza virus vaccine, unspecified formulation Brooke ELIZALDE [facility] NEGATED: Highlighted row has not occurred!09-14-2021 influenza virus vaccine, unspecified formulation Brooke ELIZALDE [facility] NEGATED: Highlighted row has not occurred!03-10-2021 influenza virus vaccine, unspecified formulation Brooke MENSAHFIELD [facility] NEGATED: Highlighted row has not occurred!09-01-2020 influenza virus vaccine, unspecified formulation Brooke THADDEUS [facility] NEGATED: Highlighted row has not occurred!11-11-2019 influenza virus vaccine, live, attenuated, for intranasal use Brooke ELIZALDE [facility] NEGATED: Highlighted row has not occurred!10-07-2019 influenza virus vaccine, unspecified formulation Brooke ELIZALDE [facility] Payers Date Payer Category Payer Medicare [id number] . [id number] 2018 Medicare [id number] 1965 Unknown [id number] 2.16.84 0.1.442962.3.579.2.727 1965 Unknown [id number] 2.16.84 0.1.145289.3.579.2.727 1965 Unknown [id number] 2.16.84 0.1.877636.3.579.2.593 1965 Unknown [id number] 2.16.8 40.1.597165.3.579.2.727 1965 Unknown [id number] 2.16.8 40.1.091904.3.579.2.727 1965 Unknown [id number] 2.16.8 40.1.235737.3.579.2. 1965 Unknown [id number] 2.16.8 40.1.321362.3.579.2. 1965 Unknown [id number] 2.16.8 40.1.951835.3.579.2. 1965 Unknown [id number] 2.16.8 40.1.782216.3.579.2. 1965 Unknown [id number] 2.16.8 40.1.640513.3.579.2. 1965 Unknown [id number] 2.16.8 40.1.695015.3.579.2. 1965 Unknown [id number] 2.16.8 40.1.431938.3.579.2. 1965 Unknown [id number] 2.16.8 40.1.763827.3.579.2. 1965 Unknown [id number] 2.16.8 40.1.283333.3.579.2. 1964 Unknown [id number] 2.16.8 40.1.943261.3.579.2.7 1965 Unknown [id number] 2.16.8 40.1.235630.3.579.2.727 1965 Unknown [id number] 2.16.84 0.1.746554.3.579.2.1259 1964 Unknown [id number] 2.16.84 0.1.485285.3.579.2.1259 1965 Unknown [id number] 2.16.84 0.1.843754.3.579.2.1259 1960 Medicaid [id number] 1960 Unknown [id number] Medicare [id number] Social History Date Type Detail Facility Start: 06-15-2021 End: 05-07-2024 Tobacco smoking status Ex-smoker (finding) [employer] Other Tobacco smoking status Never [facility] Sex Assigned At Female [employer] Other Medical Equipment Procedure Code Equipment Code Equipment Origin al Text Equipment Identifier Dates Lancets, Box #1 Refills #5, Print Requisition, Supply Start: 10-30-2016 lancets, See Instructions, 100 EA, 3, test daily E11.65, [employer] 1985, Supply, 167, cm, 09/01/20 10:51:00 EST, Height/Length Dosing, 133.6, kg, 09/01/20 10:51:00 EST, Weight Dosing Start: 09-30-2020 pen needles 6mm, 31 g, See Instructions, 150 EA, 11, injects bid dx E11.65, [employer] 1985, Supply, 168, cm, 06/15/21 13:57:00 EDT, Height/Length Dosing, 131.7, kg, 06/15/21 13:57:00 EDT, Weight Dosing Start: 08-24-2021 Strips for glucometer, Box #1 Refeills 5, Print Requisition, Supply Start: 10-30-2016 Test Strips, See Instructions, 100 EA, 3, test daily E11.65, [employer] 1985, Supply, 167, cm, 09/01/20 10:51:00 EST, Height/Length Dosing, 133.6, kg, 09/01/20 10:51:00 EST, Weight Dosing Start: 09-30-2020 Lancets, Box #1 Refills #5, Print Requisition, Supply Start: 10-30-2016 lancets, See Instructions, 100 EA, 3, test daily E11.65, [employer] 1985, Supply, 167, cm, 09/01/20 10:51:00 EST, Height/Length Dosing, 133.6, kg, 09/01/20 10:51:00 EST, Weight Dosing Start: 09-30-2020 pen needles 6mm, 31 g, See Instructions, 150 EA, 11, injects bid dx E11.65, [employer] 1985, Supply, 168, cm, 06/15/21 13:57:00 EDT, Height/Length Dosing, 131.7, kg, 06/15/21 13:57:00 EDT, Weight Dosing Start: 08-24-2021 Strips for glucometer, Box #1 Refeills 5, Print Requisition, Supply Start: 10-30-2016 Test Strips, See Instructions, 100 EA, 3, test daily E11.65, [employer] 1985, Supply, 167, cm, 09/01/20 10:51:00 EST, Height/Length Dosing, 133.6, kg, 09/01/20 10:51:00 EST, Weight Dosing Start: 09-30-2020 Lancets, Box #1 Refills #5, Print Requisition, Supply Start: 10-30-2016 lancets, See Instructions, 100 EA, 3, test daily E11.65, [employer] 1985, Supply, 167, cm, 09/01/20 10:51:00 EST, Height/Length Dosing, 133.6, kg, 09/01/20 10:51:00 EST, Weight Dosing Start: 09-30-2020 pen needles 6mm, 31 g, See Instructions, 150 EA, 11, injects bid dx E11.65, [employer] 1985, Supply, 168, cm, 06/15/21 13:57:00 EDT, Height/Length Dosing, 131.7, kg, 06/15/21 13:57:00 EDT, Weight Dosing Start: 08-24-2021 Strips for glucometer, Box #1 Refeills 5, Print Requisition, Supply Start: 10-30-2016 Test Strips, See Instructions, 100 EA, 3, test daily E11.65, [employer] 1985, Supply, 167, cm, 09/01/20 10:51:00 EST, Height/Length Dosing, 133.6, kg, 09/01/20 10:51:00 EST, Weight Dosing Start: 09-30-2020 Lancets, Box #1 Refills #5, Print Requisition, Supply Start: 10-30-2016 lancets, See Instructions, 100 EA, 3, test daily E11.65, [employer] 1985, Supply, 167, cm, 09/01/20 10:51:00 EST, Height/Length Dosing, 133.6, kg, 09/01/20 10:51:00 EST, Weight Dosing Start: 09-30-2020 pen needles 6mm, 31 g, See Instructions, 150 EA, 11, injects bid dx E11.65, [employer] 1985, Supply, 168, cm, 06/15/21 13:57:00 EDT, Height/Length Dosing, 131.7, kg, 06/15/21 13:57:00 EDT, Weight Dosing Start: 08-24-2021 Strips for glucometer, Box #1 Refeills 5, Print Requisition, Supply Start: 10-30-2016 Test Strips, See Instructions, 100 EA, 3, test daily E11.65, [employer] 1985, Supply, 167, cm, 09/01/20 10:51:00 EST, Height/Length Dosing, 133.6, kg, 09/01/20 10:51:00 EST, Weight Dosing Start: 09-30-2020 Lancets, Box #1 Refills #5, Print Requisition, Supply Start: 10-30-2016 lancets, See Instructions, 100 EA, 3, test daily E11.65, [employer] 1985, Supply, 167, cm, 09/01/20 10:51:00 EST, Height/Length Dosing, 133.6, kg, 09/01/20 10:51:00 EST, Weight Dosing Start: 09-30-2020 pen needles 6mm, 31 g, See Instructions, 150 EA, 11, injects bid dx E11.65, [employer] 1985, Supply, 168.9, cm, 05/06/22 16:53:00 EDT, Height/Length Dosing, 133, kg, 05/06/22 16:53:00 EDT, Weight Dosing Start: 11-03-2022 Strips for glucometer, Box #1 Refeills 5, Print Requisition, Supply Start: 10-30-2016 Test Strips, See Instructions, 100 EA, 3, test daily E11.65, [employer] 1985, Supply, 167, cm, 09/01/20 10:51:00 EST, Height/Length Dosing, 133.6, kg, 09/01/20 10:51:00 EST, Weight Dosing Start: 09-30-2020 Lancets, Box #1 Refills #5, Print Requisition, Supply Start: 10-30-2016 lancets, See Instructions, 100 EA, 3, test daily E11.65, [employer] 1985, Supply, 167, cm, 09/01/20 10:51:00 EST, Height/Length Dosing, 133.6, kg, 09/01/20 10:51:00 EST, Weight Dosing Start: 09-30-2020 pen needles 6mm, 31 g, See Instructions, 150 EA, 11, injects bid dx E11.65, [employer] 1985, Supply, 168.9, cm, 05/06/22 16:53:00 EDT, Height/Length Dosing, 133, kg, 05/06/22 16:53:00 EDT, Weight Dosing Start: 11-03-2022 Strips for glucometer, Box #1 Refeills 5, Print Requisition, Supply Start: 10-30-2016 Test Strips, See Instructions, 100 EA, 3, test daily E11.65, [employer] 1985, Supply, 167, cm, 09/01/20 10:51:00 EST, Height/Length Dosing, 133.6, kg, 09/01/20 10:51:00 EST, Weight Dosing Start: 09-30-2020 Lancets, Box #1 Refills #5, Print Requisition, Supply Start: 10-30-2016 lancets, See Instructions, 100 EA, 3, test daily E11.65, [employer] 1985, Supply, 167, cm, 09/01/20 10:51:00 EST, Height/Length Dosing, 133.6, kg, 09/01/20 10:51:00 EST, Weight Dosing Start: 09-30-2020 pen needles 6mm, 31 g, See Instructions, 150 EA, 11, injects bid dx E11.65, [employer] 1985, Supply, 168.9, cm, 05/06/22 16:53:00 EDT, Height/Length Dosing, 133, kg, 05/06/22 16:53:00 EDT, Weight Dosing Start: 11-03-2022 Strips for glucometer, Box #1 Refeills 5, Print Requisition, Supply Start: 10-30-2016 Test Strips, See Instructions, 100 EA, 3, test daily E11.65, [employer] 1985, Supply, 167, cm, 09/01/20 10:51:00 EST, Height/Length Dosing, 133.6, kg, 09/01/20 10:51:00 EST, Weight Dosing Start: 09-30-2020 Lancets, Box #1 Refills #5, Print Requisition, Supply Start: 10-30-2016 lancets, See Instructions, 100 EA, 3, test daily E11.65, [employer] 1985, Supply, 167, cm, 09/01/20 10:51:00 EST, Height/Length Dosing, 133.6, kg, 09/01/20 10:51:00 EST, Weight Dosing Start: 09-30-2020 pen needles 6mm, 31 g, See Instructions, 150 EA, 11, injects bid dx E11.65, [employer] 1985, Supply, 168.9, cm, 05/06/22 16:53:00 EDT, Height/Length Dosing, 133, kg, 05/06/22 16:53:00 EDT, Weight Dosing Start: 11-03-2022 Strips for glucometer, Box #1 Refeills 5, Print Requisition, Supply Start: 10-30-2016 Test Strips, See Instructions, 100 EA, 3, test daily E11.65, [employer] 1985, Supply, 167, cm, 09/01/20 10:51:00 EST, Height/Length Dosing, 133.6, kg, 09/01/20 10:51:00 EST, Weight Dosing Start: 09-30-2020 Lancets, Box #1 Refills #5, Print Requisition, Supply Start: 10-30-2016 lancets, See Instructions, 100 EA, 3, test daily E11.65, [employer] 1985, Supply, 167, cm, 09/01/20 10:51:00 EST, Height/Length Dosing, 133.6, kg, 09/01/20 10:51:00 EST, Weight Dosing Start: 09-30-2020 pen needles 6mm, 31 g, See Instructions, 150 EA, 11, injects bid dx E11.65, [employer] 1985, Supply, 168.9, cm, 05/06/22 16:53:00 EDT, Height/Length Dosing, 133, kg, 05/06/22 16:53:00 EDT, Weight Dosing Start: 11-03-2022 Strips for glucometer, Box #1 Refeills 5, Print Requisition, Supply Start: 10-30-2016 Test Strips, See Instructions, 100 EA, 3, test daily E11.65, [employer] 1985, Supply, 167, cm, 09/01/20 10:51:00 EST, Height/Length Dosing, 133.6, kg, 09/01/20 10:51:00 EST, Weight Dosing Start: 09-30-2020 Lancets, Box #1 Refills #5, Print Requisition, Supply Start: 10-30-2016 lancets, See Instructions, 100 EA, 3, test daily E11.65, [employer] 1985, Supply, 167, cm, 09/01/20 10:51:00 EST, Height/Length Dosing, 133.6, kg, 09/01/20 10:51:00 EST, Weight Dosing Start: 09-30-2020 pen needles 6mm, 31 g, See Instructions, 150 EA, 11, injects bid dx E11.65, [employer] 1985, Supply, 168.9, cm, 05/06/22 16:53:00 EDT, Height/Length Dosing, 133, kg, 05/06/22 16:53:00 EDT, Weight Dosing Start: 11-03-2022 Strips for glucometer, Box #1 Refeills 5, Print Requisition, Supply Start: 10-30-2016 Test Strips, See Instructions, 100 EA, 3, test daily E11.65, [employer] 1985, Supply, 167, cm, 09/01/20 10:51:00 EST, Height/Length Dosing, 133.6, kg, 09/01/20 10:51:00 EST, Weight Dosing Start: 09-30-2020 Lancets, Box #1 Refills #5, Print Requisition, Supply Start: 10-30-2016 lancets, See Instructions, 100 EA, 3, test daily E11.65, [employer] 1985, Supply, 167, cm, 09/01/20 10:51:00 EST, Height/Length Dosing, 133.6, kg, 09/01/20 10:51:00 EST, Weight Dosing Start: 09-30-2020 pen needles 6mm, 31 g, See Instructions, 150 EA, 11, injects bid dx E11.65, [employer] 1985, Supply, 168.9, cm, 05/06/22 16:53:00 EDT, Height/Length Dosing, 133, kg, 05/06/22 16:53:00 EDT, Weight Dosing Start: 11-03-2022 Strips for glucometer, Box #1 Refeills 5, Print Requisition, Supply Start: 10-30-2016 Test Strips, See Instructions, 100 EA, 3, test daily E11.65, [employer] 1985, Supply, 167, cm, 09/01/20 10:51:00 EST, Height/Length Dosing, 133.6, kg, 09/01/20 10:51:00 EST, Weight Dosing Start: 09-30-2020 Lancets, Box #1 Refills #5, Print Requisition, Supply Start: 10-30-2016 lancets, See Instructions, 100 EA, 3, test daily E11.65, [employer] 1985, Supply, 167, cm, 09/01/20 10:51:00 EST, Height/Length Dosing, 133.6, kg, 09/01/20 10:51:00 EST, Weight Dosing Start: 09-30-2020 pen needles 6mm, 31 g, See Instructions, 150 EA, 11, injects bid dx E11.65, [employer] 1985, Supply, 168.9, cm, 05/06/22 16:53:00 EDT, Height/Length Dosing, 133, kg, 05/06/22 16:53:00 EDT, Weight Dosing Start: 11-03-2022 Strips for glucometer, Box #1 Refeills 5, Print Requisition, Supply Start: 10-30-2016 Test Strips, See Instructions, 100 EA, 3, test daily E11.65, [employer] 1985, Supply, 167, cm, 09/01/20 10:51:00 EST, Height/Length Dosing, 133.6, kg, 09/01/20 10:51:00 EST, Weight Dosing Start: 09-30-2020 Lancets, Box #1 Refills #5, Print Requisition, Supply Start: 10-30-2016 lancets, See Instructions, 100 EA, 3, test daily E11.65, [employer] 1985, Supply, 167, cm, 09/01/20 10:51:00 EST, Height/Length Dosing, 133.6, kg, 09/01/20 10:51:00 EST, Weight Dosing Start: 09-30-2020 pen needles 6mm, 31 g, See Instructions, 400 EA, 11, injects qid. and prn dx E11.65, [employer] 1985, Supply, 168, cm, 04/19/23 13:52:00 EDT, Height/Length Dosing, 143.3, kg, 04/19/23 13:52:00 EDT, Weight Dosing Start: 05-10-2023 Strips for glucometer, Box #1 Refeills 5, Print Requisition, Supply Start: 10-30-2016 Test Strips, See Instructions, 100 EA, 3, test daily E11.65, [employer] 1985, Supply, 167, cm, 09/01/20 10:51:00 EST, Height/Length Dosing, 133.6, kg, 09/01/20 10:51:00 EST, Weight Dosing Start: 09-30-2020 lancets, See Instructions, 100 EA, 4, test daily E11, [employer] 1985, Supply, 168, cm, 08/04/23 13:13:00 EDT, Height/Length Dosing, 137.9, kg, 08/04/23 13:13:00 EDT, Weight Dosing Start: 08-04-2023 pen needles 6mm, 31 g, See Instructions, 375 EA, 4, injects qid. and weekly for trulicity, needs 125 per month or 375 per 3months dx E11.65, [employer] 1985, Supply, 168, cm, 08/04/23 13:13:00 EDT, Height/Length Dosing, 137.9, kg, 08/04/23 13:13:00 EDT, Weight Dosing Start: 10-04-2023 Test Strips, See Instructions, 100 EA, 3, test daily E11., [employer] 1985, Supply, 168, cm, 08/04/23 13:13:00 EDT, Height/Length Dosing, 137.9, kg, 08/04/23 13:13:00 EDT, Weight Dosing Start: 08-04-2023 lancets, See Instructions, 100 EA, 4, test daily E11, [employer] 1985, Supply, 168, cm, 08/04/23 13:13:00 EDT, Height/Length Dosing, 137.9, kg, 08/04/23 13:13:00 EDT, Weight Dosing Start: 08-04-2023 pen needles 6mm, 31 g, See Instructions, 375 EA, 4, injects qid. and weekly for trulicity, needs 125 per month or 375 per 3months dx E11.65, [employer] 1985, Supply, 168, cm, 08/04/23 13:13:00 EDT, Height/Length Dosing, 137.9, kg, 08/04/23 13:13:00 EDT, Weight Dosing Start: 10-04-2023 Test Strips, See Instructions, 100 EA, 3, test daily E11, [employer] Bill 1985, Supply, 168, cm, 08/04/23 13:13:00 EDT, Height/Length Dosing, 137.9, kg, 08/04/23 13:13:00 EDT, Weight Dosing Start: 08-04-2023 lancets, See Instructions, 100 EA, 4, test daily E11, [employer] 1985, Supply, 168, cm, 08/04/23 13:13:00 EDT, Height/Length Dosing, 137.9, kg, 08/04/23 13:13:00 EDT, Weight Dosing Start: 08-04-2023 pen needles 6mm, 31 g, See Instructions, 375 EA, 4, injects qid. and weekly for trulicity, needs 125 per month or 375 per 3months dx E11.65, [employer] 1985, Supply, 168, cm, 08/04/23 13:13:00 EDT, Height/Length Dosing, 137.9, kg, 08/04/23 13:13:00 EDT, Weight Dosing Start: 10-04-2023 Test Strips, See Instructions, 100 EA, 3, test daily , [employer] 1985, Supply, 168, cm, 08/04/23 13:13:00 EDT, Height/Length Dosing, 137.9, kg, 08/04/23 13:13:00 EDT, Weight Dosing Start: 08-04-2023 lancets, See Instructions, 100 EA, 4, test daily , [employer] 1985, Supply, 168, cm, 08/04/23 13:13:00 EDT, Height/Length Dosing, 137.9, kg, 08/04/23 13:13:00 EDT, Weight Dosing Start: 08-04-2023 pen needles 6mm, 31 g, See Instructions, 375 EA, 4, injects qid. and weekly for trulicity, needs 125 per month or 375 per 3months dx E11.65, [employer] 1985, Supply, 168, cm, 08/04/23 13:13:00 EDT, Height/Length Dosing, 137.9, kg, 08/04/23 13:13:00 EDT, Weight Dosing Start: 10-04-2023 Test Strips, See Instructions, 100 EA, 3, test daily E11, [employer] 1985, Supply, 168, cm, 08/04/23 13:13:00 EDT, Height/Length Dosing, 137.9, kg, 08/04/23 13:13:00 EDT, Weight Dosing Start: 08-04-2023 lancets, See Instructions, 100 EA, 4, test daily , [employer] 1985, Supply, 168, cm, 08/04/23 13:13:00 EDT, Height/Length Dosing, 137.9, kg, 08/04/23 13:13:00 EDT, Weight Dosing Start: 08-04-2023 pen needles 6mm, 31 g, See Instructions, 375 EA, 4, injects qid. and weekly for trulicity, needs 125 per month or 375 per 3months dx E11., [employer] 1985, Supply, 168, cm, 11/20/23 13:30:00 EST, Height/Length Dosing, 133.9, kg, 11/20/23 13:30:00 EST, Weight Dosing Start: 12-06-2023 Test Strips, See Instructions, 100 EA, 3, test daily , [employer] 1985, Supply, 168, cm, 08/04/23 13:13:00 EDT, Height/Length Dosing, 137.9, kg, 08/04/23 13:13:00 EDT, Weight Dosing Start: 08-04-2023 lancets, See Instructions, 100 EA, 4, test daily , [employer] 1985, Supply, 168, cm, 08/04/23 13:13:00 EDT, Height/Length Dosing, 137.9, kg, 08/04/23 13:13:00 EDT, Weight Dosing Start: 08-04-2023 pen needles 6mm, 31 g, See Instructions, 375 EA, 4, injects qid. and weekly for trulicity, needs 125 per month or 375 per 3months dx E11.65, [employer] 1985, Supply, 168, cm, 11/20/23 13:30:00 EST, Height/Length Dosing, 133.9, kg, 11/20/23 13:30:00 EST, Weight Dosing Start: 12-06-2023 Test Strips, See Instructions, 100 EA, 3, test daily E11, [employer] 1985, Supply, 168, cm, 08/04/23 13:13:00 EDT, Height/Length Dosing, 137.9, kg, 08/04/23 13:13:00 EDT, Weight Dosing Start: 08-04-2023 lancets, See Instructions, 100 EA, 4, test daily E11, [employer] 1985, Supply, 168, cm, 08/04/23 13:13:00 EDT, Height/Length Dosing, 137.9, kg, 08/04/23 13:13:00 EDT, Weight Dosing Start: 08-04-2023 pen needles 6mm, 31 g, See Instructions, 375 EA, 4, injects qid. and weekly for trulicity, needs 125 per month or 375 per 3months dx E11.65, [employer] Bill 1985, Supply, 168, cm, 11/20/23 13:30:00 EST, Height/Length Dosing, 133.9, kg, 11/20/23 13:30:00 EST, Weight Dosing Start: 12-06-2023 Test Strips, See Instructions, 100 EA, 3, test daily , [employer] 1985, Supply, 168, cm, 08/04/23 13:13:00 EDT, Height/Length Dosing, 137.9, kg, 08/04/23 13:13:00 EDT, Weight Dosing Start: 08-04-2023 lancets, See Instructions, 100 EA, 4, test daily , [employer] 1985, Supply, 168, cm, 08/04/23 13:13:00 EDT, Height/Length Dosing, 137.9, kg, 08/04/23 13:13:00 EDT, Weight Dosing Start: 08-04-2023 pen needles 6mm, 31 g, See Instructions, 375 EA, 4, injects qid. and weekly for trulicity, needs 125 per month or 375 per 3months dx E11.65, [employer] 1985, Supply, 168, cm, 11/20/23 13:30:00 EST, Height/Length Dosing, 133.9, kg, 11/20/23 13:30:00 EST, Weight Dosing Start: 12-06-2023 Test Strips, See Instructions, 100 EA, 3, test daily E11.65, [employer] Bill 1985, Supply, 168, cm, 08/04/23 13:13:00 EDT, Height/Length Dosing, 137.9, kg, 08/04/23 13:13:00 EDT, Weight Dosing Start: 08-04-2023 lancets, See Instructions, 100 EA, 4, test daily E11.65, [employer] Bill 1985, Supply, 168, cm, 08/04/23 13:13:00 EDT, Height/Length Dosing, 137.9, kg, 08/04/23 13:13:00 EDT, Weight Dosing Start: 08-04-2023 pen needles 6mm, 31 g, See Instructions, 375 EA, 4, injects qid. and weekly for trulicity, needs 125 per month or 375 per 3months dx E11.65, [employer] 1985, Supply, 168, cm, 11/20/23 13:30:00 EST, Height/Length Dosing, 133.9, kg, 11/20/23 13:30:00 EST, Weight Dosing Start: 12-06-2023 Test Strips, See Instructions, 100 EA, 3, test daily E11.65, [employer] Bill 1985, Supply, 168, cm, 08/04/23 13:13:00 EDT, Height/Length Dosing, 137.9, kg, 08/04/23 13:13:00 EDT, Weight Dosing Start: 08-04-2023 Functional Status Date Assessment Result Facility 05-07-2024 Functional Status N/A [facility] 03-28-2024 Functional Status N/A [facility] 02-16-2024 Functional Status N/A [facility] 02-02-2024 Functional Status N/A [facility] 11-20-2023 Functional Status N/A [facility] 2023 Functional Status N/A [place] 02-17-2023 Functional Status N/A [facility] [place] 12-30-2022 Functional Status N/A [facility] 11-28-2022 Functional Status N/A [facility] 05-06-2022 Functional Status N/A [facility] Clinical Notes 12-28-2021 to 05-07-2024 Note Date & Type Note Facility 05-07-2024 Evaluation + Plan note Extrac roxanne from: Title:ED Note Author:Ruel Mohan DO Date :05/07/24 Dyspnea (R06.00: Dyspnea, un specified) Leg pain (M79.606: Pain in leg, unspecified) Orders: albuterol-ipratropium, 3 mL, Soln-Inh, Inhalation, Once, Stop date 05/07/24 5:07:00 EDT, STAT, Start date 05/07/24 5:07:00 EDT B-Type Natriuretic Peptide Basic Metabolic Panel CBC w/ Auto Diff ECG 12 Lead Adult eGFR Extra Blue Tube Extra SST Tube Troponin 0 Hr. US LE Venous Duplex Right XR Chest Single View Addendum by Keith Gerber PA-C on May 07, 2024 07:21:06 EDT Patient signed out by the previous provider awaiting ultrasound results. Ultrasound discussed with lay out technician, no evidence of DVT. Results are discussed the patient. She is resting comfortably. She has no acute work of breathing. She has stable vital signs. She does have underlying diabetic neuropathy and this likely accounts for her pain and discomfort today. She describes some generalized malaise and myalgias and possible viral syndrome discussed as well. Overall workup is stable and nontoxic. We discussed various medications for neuropathy. Ultimately she has been on multiple medications within the past and she is given a short supply of Percocet today and will follow-up with her PCP. Patient was encouraged to return to the ED if symptoms worsen or change. Future Appointments Appointment Date:05/21/2024 02:20:00 PM Scheduled Provider:Brooke ELIZALDE MD Location:[facility] Appointment Type:FM Open Appointment Date:06/13/2024 01:00:00 PM Scheduled Provider: Location:[facility] Appointment Type:FM Medicare Wellness Subsequent [facility]07-09-2024 Hospital Discharge instructions Patient Education 05/07/2024 07:19:30 Musculoskeletal Pain Musculoskeletal Pain Musculoskeletal pain refers to aches and pains in your bones, joints, muscles, and the tissues thatsurround them. This pain can occur in any part of the body. It can last for a short time (acute) ora long time (chronic). A physical exam, lab tests, and imaging studies may be done to find the cause of your musculoskeletal pain. Follow these instructions at home: Lifestyle Try to control or lower your stress levels. Stress increases muscle tension and can worsen musculoskeletal pain. It is important to recognize when you are anxious or stressed and learn ways to manageit. This may include: ?Meditation or yoga. ?Cognitive or behavioral therapy. ?Acupuncture or massage therapy. You may continue all activities unless the activities cause more pain. When the pain gets better, slowly resume your normal activities. Gradually increase the intensity and duration of your activities or exercise. Managing pain, stiffness, and swelling Treatment may include medicines for pain and inflammation that are taken by mouth or applied to theskin. Take [id number] and prescription medicines only as told by your health care provider. When your pain is severe, bed rest may be helpful. Lie or sit in any position that is comfortable, but get out of bed and walk around at least every couple of hours. If directed, apply heat to the affected area as often as told by your health care provider. Use theheat source that your health care provider recommends, such as a moist heat pack or a heating pad. ?Place a towel between your skin and the heat source. ?Leave the heat on for 20 30 minutes. ?Remove the heat if your skin turns bright red. This is especially important if you are unable to feel pain, heat, or cold. You may have a greater risk of getting burned. If directed, put ice on the painful area. To do this: ?Put ice in a plastic bag. ?Place a towel between your skin and the bag. ?Leave the ice on for 20 minutes, 2 3 times a day. ?Remove the ice if your skin turns bright red. This is very important. If you cannot feel pain, heat, or cold, you have a greater risk of damage to the area. General instructions Your health care provider may recommend that you see a physical therapist. This person can help youcome up with a safe exercise program. If told by your health care provider, do physical therapy exercises to improve movement and strength in the affected area. Keep all follow-up visits. This is important. This includes any physical therapy visits. Contact a health care provider if: Your pain gets worse. Medicines do not help ease your pain. You cannot use the part of your body that hurts, such as your arm, leg, or neck. You have trouble sleeping. You have trouble doing your normal activities. Get help right away if: You have a new injury and your pain is worse or different. You feel numb or you have tingling in the painful area. Summary Musculoskeletal pain refers to aches and pains in your bones, joints, muscles, and the tissues thatsurround them. This pain can occur in any part of the body. Your health care provider may recommend that you see a physical therapist. This person can help youcome up with a safe exercise program. Do any exercises as told by your physical therapist. Lower your stress level. Stress can worsen musculoskeletal pain. Ways to lower stress may include meditation, yoga, cognitive or behavioral therapy, acupuncture, and massage therapy. This information is not intended to replace advice given to you by your health care provider. Make sure you discuss any questions you have with your health care provider. Document Revised: 02/18/2021 Document Reviewed: 01/27/2021 [employer] Patient Education 2022 [employer] 05/07/2024 07:19:30 Diabetic Neuropathy Diabetic Neuropathy Diabetic neuropathy refers to nerve damage that is caused by diabetes. Over time, people with diabetes can develop nerve damage throughout the body. There are several types of diabetic neuropathy: Peripheral neuropathy. This is the most common type of diabetic neuropathy. It damages the nerves that carry signals between the spinal cord and other parts of the body (peripheral nerves). This usually affects nerves in the feet, legs, hands, and arms. Autonomic neuropathy. This type causes damage to nerves that control involuntary functions (autonomic nerves). Involuntary functions are functions of the body that you do not control. They include heartbeat, body temperature, blood pressure, urination, digestion, sweating, sexual function, or response to changes in blood glucose. Focal neuropathy. This type of nerve damage affects one area of the body, such as an arm, a leg, orthe face. The injury may involve one nerve or a small group of nerves. Focal neuropathy can be painful and unpredictable. It occurs most often in older adults with diabetes. This often develops suddenly, but usually improves over time and does not cause long-term problems. Proximal neuropathy. This type of nerve damage affects the nerves of the thighs, hips, buttocks, orlegs. It causes severe pain, weakness, and muscle (atrophy), usually in the thigh muscles. Itis more common among older men and people who have type 2 diabetes. The length of recovery time mayvary. What are the causes? Peripheral, autonomic, and focal neuropathies are caused by diabetes that is not well controlled with treatment. The cause of proximal neuropathy is not known, but it may be caused by inflammation related to uncontrolled blood glucose levels. What are the signs or symptoms? Peripheral neuropathy Peripheral neuropathy develops slowly over time. When the nerves of the feet and legs no longer work, you may experience: Burning, stabbing, or aching pain in the legs or feet. Pain or cramping in the legs or feet. Loss of feeling (numbness) and inability to feel pressure or pain in the feet. This can lead to: ?Thick calluses or sores on areas of constant pressure. ?Ulcers. ?Reduced ability to feel temperature changes. Foot deformities. Muscle weakness. Loss of balance or coordination. Autonomic neuropathy The symptoms of autonomic neuropathy vary depending on which nerves are affected. Symptoms may include: Problems with digestion, such as: ?Nausea or vomiting. ?Poor appetite. ?Bloating. ?Diarrhea or constipation. ?Trouble swallowing. ?Losing weight without trying to. Problems with the heart, blood, and lungs, such as: ?Dizziness, especially when standing up. ?Fainting. ?Shortness of breath. ?Irregular heartbeat. Bladder problems, such as: ?Trouble starting or stopping urination. ?Leaking urine. ?Trouble emptying the bladder. ?Urinary tract infections (UTIs). Problems with other body functions, such as: ?Sweat. You may sweat too much or too little. ?Temperature. You might get hot easily. Or, you might feel cold more than usual. ?Sexual function. Men may not be able to get or maintain an erection. Women may have vaginal dryness and difficulty with arousal. Focal neuropathy Symptoms affect only one area of the body. Common symptoms include: Numbness. Tingling. Burning pain. Prickling feeling. Very sensitive skin. Weakness. Inability to move (paralysis). Muscle twitching. Muscles getting smaller (wasting). Poor coordination. Double or blurred vision. Proximal neuropathy Sudden, severe pain in the hip, thigh, or buttocks. Pain may spread from the back into the legs (sciatica). Pain and numbness in the arms and legs. Tingling. Loss of bladder control or bowel control. Weakness and wasting of thigh muscles. Difficulty getting up from a seated position. Abdominal swelling. Unexplained weight loss. How is this diagnosed? Diagnosis varies depending on the type of neuropathy your health care provider suspects. Peripheral neuropathy Your health care provider will do a neurologic exam. This exam checks your reflexes, how you move, and what you can feel. You may have other tests, such as: Blood tests. Tests of the fluid that surrounds the spinal cord (lumbar puncture). CT scan. MRI. Checking the nerves that control muscles (electromyogram, or EMG). Checking how quickly signals pass through your nerves (nerve conduction study). Checking a small piece of a nerve using a microscope (biopsy). Autonomic neuropathy You may have tests, such as: Tests to measure your blood pressure and heart rate. You may be secured to an exam table that movesyou from a lying position to an upright position (table tilt test). Breathing tests to check your lungs. Tests to check how food moves through the digestive system (gastric emptying tests). Blood, sweat, or urine tests. Ultrasound of your bladder. Spinal fluid tests. Focal neuropathy This condition may be diagnosed with: A neurologic exam. CT scan. MRI. EMG. Nerve conduction study. Proximal neuropathy There is no test to diagnose this type of neuropathy. You may have tests to rule out other possiblecauses of this type of neuropathy. Tests may include: X-rays of your spine and lumbar region. Lumbar puncture. MRI. How is this treated? The goal of treatment is to keep nerve damage from getting worse. Treatment may include: Following your diabetes management plan. This will help keep your blood glucose level and your A1C level within your target range. This is the most important treatment. Using prescription pain medicine. Follow these instructions at home: Diabetes management Follow your diabetes management plan as told by your health care provider. Check your blood glucose levels. Keep your blood glucose in your target range. Have your A1C level checked at least two times a year, or as often as told. Take over the counter and prescription medicines only as told by your health care provider. This includes insulin and diabetes medicine. Lifestyle Do not use any products that contain nicotine or tobacco, such as cigarettes, e- cigarettes, and chewing tobacco. If you need help quitting, ask your health care provider. Be physically active every day. Include strength training and balance exercises. Follow a healthy meal plan. Work with your health care provider to manage your blood pressure. General instructions Ask your health care provider if the medicine prescribed to you requires you to avoid driving or using machinery. Check your skin and feet every day for cuts, bruises, redness, blisters, or sores. Keep all follow-up visits. This is important. Contact a health care provider if: You have burning, stabbing, or aching pain in your legs or feet. You are unable to feel pressure or pain in your feet. You develop problems with digestion, such as: ?Nausea. ?Vomiting. ?Bloating. ?Constipation. ?Diarrhea. ?Abdominal pain. You have difficulty with urination, such as: ?Inability to control when you urinate (incontinence). ?Inability to completely empty the bladder (retention). You feel as if your heart is racing (palpitations). You feel dizzy, weak, or faint when you stand up. Get help right away if: You cannot urinate. You have sudden weakness or loss of coordination. You have trouble speaking. You have pain or pressure in your chest. You have an irregular heartbeat. You have sudden inability to move a part of your body. These symptoms may represent a serious problem that is an emergency. Do not wait to see if the symptoms will go away. Get medical help right away. Call your local emergency services (911 in the [place] Do not drive yourself to the hospital. Summary Diabetic neuropathy is nerve damage that is caused by diabetes. It can cause numbness and pain in the arms, legs, digestive tract, heart, and other body systems. This condition is treated by keeping your blood glucose level and your A1C level within your targetrange. This can help prevent neuropathy from getting worse. Check your skin and feet every day for cuts, bruises, redness, blisters, or sores. Do not use any products that contain nicotine or tobacco, such as cigarettes, e- cigarettes, and chewing tobacco. This information is not intended to replace advice given to you by your health care provider. Make sure you discuss any questions you have with your health care provider. Document Revised: 02/25/2021 Document Reviewed: 02/25/2021 [employer] Patient Education 2022 [employer]. Follow Up Care 05/07/2024 04:44:40 With:Brooke ELIZALDE Address: [address] [place], [place] [id number]- Business (1) When:Within 3 Day(s) [facility]05-30-2024 Hospital Discharge instructions Patient Education 03/28/2024 13:35:23 Medical Screening Exam Medical Screening Exam A medical screening exam (MSE) helps to determine whether you need immediate medical treatment relating to any number of symptoms you are having. This type of exam may be done in an emergency department, an urgent care setting, or your health care provider's office. Depending on your symptoms and severity, you may need additional tests or medical therapy. It is important to note that an MSE does not necessarily mean that you will need or receive furthermedical testing or interventions if your symptoms are not deemed to be medically urgent (emergent). Tell a health care provider about: Any allergies you have. All medicines you are taking, including vitamins, herbs, eye drops, creams, and [id number] medicines. Any problems you or family members have had with anesthetic medicines. Any bleeding problems you have. Any surgeries you have had. Any medical conditions you have. Whether you are or may be . What happens during the test? During the exam, a health care provider does a short, often focused, physical exam and asks about your medical history to assess: Your current symptoms. Your overall health. Your need for possible further medical intervention. What can I expect after the test? If you have a regular health care provider, make an appointment for a follow-up visit with him or her. If you do not have a regular health care provider, ask about resources in your community. Your medical screening exam may determine that: You do not need emergency treatment at this time. You need treatment right away. You need to be transferred to another medical center. This may happen if you need an emergent specialist or data power consultant that is not available at the medical center you are at. You need to have more tests. A emergency medical service coordinator may be consulted if needed. Get help right away if: Your condition gets worse. You develop new or troubling symptoms before you see your health care provider. These symptoms may represent a serious problem that is an emergency. Do not wait to see if the symptoms will go away. Get medical help right away. Call your local emergency services (911 in the [place] Do not drive yourself to the hospital. Summary A medical screening exam helps to determine whether you need medical treatment right away. This type of exam may be done in an emergency department, an urgent care setting, or your health care provider's office. During the exam, a health care provider does a short physical exam and asks about your current symptoms and overall health. Depending on the exam, more tests or therapies may be ordered. However, an MSE does not necessarilymean that you will have further medical testing if your symptoms are not deemed to be urgent. If you need further care that is not offered at your current medical center, you may need to be transferred to another facility. This information is not intended to replace advice given to you by your health care provider. Make sure you discuss any questions you have with your health care provider. Document Revised: 06/29/2022 Document Reviewed: 02/24/2022 [employer] Patient Education 2022 [employer]. Follow Up Care 03/28/2024 13:12:02 With:Brooke ELIZALDE Address: [address] [place] [address] [address] [place] [address]- Business (1) When:03/31/2024 13:35:13 Comments:Call the office of your primary care doctor to arrange for follow-up within the above-stated timeframe. Follow-up with your primary care doctor about this ED visit. You should review your labs, imaging, and diagnoses from this ED visit with your primary care physician. There are occasionally non-emergent findings that require additional follow-up after your ED visit. If you were prescribed medications you should discuss possible side-effects and drug interactions with your pharmacist. Call 911 or go to the nearest Emergency Department if you develop any new or worsening symptoms. [facility]05-30-2024 Evaluation + Plan noteExtracted from: Title:ED Note Author:Jean Huang DO Date: Ring or other jewelry causin g external constriction, initial encounter (W49.04XA: Ring or other jewelry causing external constriction, initial encounter) Future Appointments Appointment Date:04/17/2024 01:00:00 PM Scheduled Provider: Location:[facility] Appointment Type:FM Medicare Wellness Subsequent Appointment Date:05/21/2024 02:20:00 PM Scheduled Provider:Brooke ELIZALDE MD Location:[facility] Appointment Type:[facility]04-19-2024 Hospital Discharge instructions Patient Education 02/16/2024 05:12:30 Exercising to Lose Weight Exercising to Lose Weight Getting regular exercise is important for everyone. It is especially important if you are overweight. Being overweight increases your risk of heart disease, stroke, diabetes, high blood pressure, andseveral types of cancer. Exercising, and reducing the calories you consume, can help you lose weight and improve fitness and health. Exercise can be moderate or vigorous intensity. To lose weight, most people need to do a certain amount of moderate or vigorous-intensity exercise each week. How can exercise affect me? You lose weight when you exercise enough to burn more calories than you eat. Exercise also reduces body fat and builds muscle. The more muscle you have, the more calories you burn. Exercise also: Improves mood. Reduces stress and tension. Improves your overall fitness, flexibility, and endurance. Increases bone strength. Moderate-intensity exercise Moderate-intensity exercise is any activity that gets you moving enough to burn at least three times more energy (calories) than if you were sitting. Examples of moderate exercise include: Walking a mile in 15 minutes. Doing light yard work. Biking at an easy pace. Most people should get at least 150 minutes of moderate-intensity exercise a week to maintain theirbody weight. Vigorous-intensity exercise Vigorous-intensity exercise is any activity that gets you moving enough to burn at least six times more calories than if you were sitting. When you exercise at this intensity, you should be working hard enough that you are not able to carry on a conversation. Examples of vigorous exercise include: Running. Playing a team sport, such as football, basketball, and soccer. Jumping rope. Most people should get at least 75 minutes a week of vigorous exercise to maintain their body weight. What actions can I take to lose weight? The amount of exercise you need to lose weight depends on: Your age. The type of exercise. Any health conditions you have. Your overall physical ability. Talk to your health care provider about how much exercise you need and what types of activities aresafe for you. Nutrition Make changes to your diet as told by your health care provider or diet and food and nutrition professor (dietitian). This may include: ?Eating fewer calories. ?Eating more protein. ?Eating less unhealthy fats. ?Eating a diet that includes fresh fruits and vegetables, whole grains, low-fat dairy products, andlean protein. ?Avoiding foods with added fat, salt, and sugar. Drink plenty of water while you exercise to prevent dehydration or heat stroke. Activity Choose an activity that you enjoy and set realistic goals. Your health care provider can help you make an exercise plan that works for you. Exercise at a moderate or vigorous intensity most days of the week. ?The intensity of exercise may vary from person to person. You can tell how intense a workout is for you by paying attention to your breathing and heartbeat. Most people will notice their breathing and heartbeat get faster with more intense exercise. Do resistance training twice each week, such as: ?Push-ups. ?Sit-ups. ?Lifting weights. ?Using resistance bands. Getting short amounts of exercise can be just as helpful as long, structured periods of exercise. If you have trouble finding time to exercise, try doing these things as part of your daily routine: ?Get up, stretch, and walk around every 30 minutes throughout the day. ?Go for a walk during your lunch break. ?Park your car farther away from your destination. ?If you take public transportation, get off one stop early and walk the rest of the way. ?Make phone calls while standing up and walking around. ?Take the stairs instead of elevators or escalators. Wear comfortable clothes and shoes with good support. Do not exercise so much that you hurt yourself, feel dizzy, or get very short of breath. Where to find more information [place] Department of Health and Human Services: www.hhs.gov Centers for Disease Control and Prevention: www.cdc.gov Contact a health care provider: Before starting a new exercise program. If you have questions or concerns about your weight. If you have a medical problem that keeps you from exercising. Get help right away if: You have any of the following while exercising: ?Injury. ?Dizziness. ?Difficulty breathing or shortness of breath that does not go away when you stop exercising. ?Chest pain. ?Rapid heartbeat. These symptoms may represent a serious problem that is an emergency. Do not wait to see if the symptoms will go away. Get medical help right away. Call your local emergency services (911 in the [place] Do not drive yourself to the hospital. Summary Getting regular exercise is especially important if you are overweight. Being overweight increases your risk of heart disease, stroke, diabetes, high blood pressure, and several types of cancer. Losing weight happens when you burn more calories than you eat. Reducing the amount of calories you eat, and getting regular moderate or vigorous exercise each week, helps you lose weight. This information is not intended to replace advice given to you by your health care provider. Make sure you discuss any questions you have with your health care provider. Document Revised: 12/12/2021 Document Reviewed: 12/12/2021 [employer] Patient Education 2022 [employer]. 02/16/2024 05:12:28 Diabetes Mellitus and Nutrition, Adult Diabetes Mellitus and Nutrition, Adult When you have diabetes, or diabetes mellitus, it is very important to have healthy eating habits because your blood sugar (glucose) levels are greatly affected by what you eat and drink. Eating healthy foods in the right amounts, at about the same times every day, can help you: Manage your blood glucose. Lower your risk of heart disease. Improve your blood pressure. Reach or maintain a healthy weight. What can affect my meal plan? Every person with diabetes is different, and each person has different needs for a meal plan. Your health care provider may recommend that you work with a dietitian to make a meal plan that is best for you. Your meal plan may vary depending on factors such as: The calories you need. The medicines you take. Your weight. Your blood glucose, blood pressure, and cholesterol levels. Your activity level. Other health conditions you have, such as heart or kidney disease. How do carbohydrates affect me? Carbohydrates, also called carbs, affect your blood glucose level more than any other type of food.Eating carbs raises the amount of glucose in your blood. It is important to know how many carbs you can safely have in each meal. This is different for every person. Your dietitian can help you calculate how many carbs you should have at each meal and for each snack. How does alcohol affect me? Alcohol can cause a decrease in blood glucose (hypoglycemia), especially if you use insulin or takecertain diabetes medicines by mouth. Hypoglycemia can be a life-threatening condition. Symptoms of hypoglycemia, such as sleepiness, dizziness, and confusion, are similar to symptoms of having too much alcohol. Do not drink alcohol if: ?Your health care provider tells you not to drink. ?You are , may be , or are planning to become . If you drink alcohol: ?Limit how much you have to: ?0 1 drink a day for women. ?0 2 drinks a day for men. ?Know how much alcohol is in your drink. In the [place] one drink equals one 12 oz bottle of beer (355 mL), one 5 oz glass of wine (148 mL), or one 1 oz glass of hard liquor (44 mL). ?Keep yourself hydrated with water, diet soda, or unsweetened iced tea. Keep in mind that regular soda, juice, and other mixers may contain a lot of sugar and must be counted as carbs. What are tips for following this plan? Reading food labels Start by checking the serving size on the Nutrition Facts label of packaged foods and drinks. The number of calories and the amount of carbs, fats, and other nutrients listed on the label are based on one serving of the item. Many items contain more than one serving per package. Check the total grams (g) of carbs in one serving. Check the number of grams of saturated fats and trans fats in one serving. Choose foods that have alow amount or none of these fats. Check the number of milligrams (mg) of salt (sodium) in one serving. Most people should limit totalsodium intake to less than 2,300 mg per day. Always check the nutrition information of foods labeled as low-fat or nonfat. These foods may be higher in added sugar or refined carbs and should be avoided. Talk to your dietitian to identify your daily goals for nutrients listed on the label. Shopping Avoid buying canned, pre-made, or processed foods. These foods tend to be high in fat, sodium, and added sugar. Shop around the outside edge of the grocery store. This is where you will most often find fresh fruits and vegetables, bulk grains, fresh meats, and fresh dairy products. Cooking Use low-heat cooking methods, such as baking, instead of high-heat cooking methods, such as deep frying. Cook using healthy oils, such as olive, canola, or sunflower oil. Avoid cooking with butter, cream, or high-fat meats. Meal planning Eat meals and snacks regularly, preferably at the same times every day. Avoid going long periods oftime without eating. Eat foods that are high in fiber, such as fresh fruits, vegetables, beans, and whole grains. Eat 4 6 oz (112 168 g) of lean protein each day, such as lean meat, chicken, fish, eggs, or tofu. One ounce (oz) (28 g) of lean protein is equal to: ?1 oz (28 g) of meat, chicken, or fish. ?1 egg. ? cup (62 g) of tofu. Eat some foods each day that contain healthy fats, such as avocado, nuts, seeds, and fish. What foods should I eat? Fruits Berries. Apples. Oranges. Peaches. Apricots. Plums. Grapes. Mangoes. Papayas. Pomegranates. Kiwi. Cherries. Vegetables Leafy greens, including lettuce, spinach, kale, chard, lesley greens, mustard greens, and cabbage.Beets. Cauliflower. Broccoli. Carrots. Green beans. Tomatoes. Peppers. Onions. Cucumbers. Almo sprouts. Grains Whole grains, such as whole-wheat or whole-grain bread, crackers, tortillas, cereal, and pasta. Unsweetened oatmeal. Quinoa. Brown or wild rice. Meats and other proteins Seafood. Poultry without skin. Lean cuts of poultry and beef. Tofu. Nuts. Seeds. Dairy Low-fat or fat-free dairy products such as milk, yogurt, and cheese. The items listed above may not be a complete list of foods and beverages you can eat and drink. Contact a dietitian for more information. What foods should I avoid? Fruits Fruits canned with syrup. Vegetables Canned vegetables. Frozen vegetables with butter or cream sauce. Grains Refined white flour and flour products such as bread, pasta, snack foods, and cereals. Avoid all processed foods. Meats and other proteins Fatty cuts of meat. Poultry with skin. Breaded or fried meats. Processed meat. Avoid saturated fats. Dairy Full-fat yogurt, cheese, or milk. Beverages Sweetened drinks, such as soda or iced tea. The items listed above may not be a complete list of foods and beverages you should avoid. Contact a dietitian for more information. Questions to ask a health care provider Do I need to meet with a certified diabetes care and education rep? Do I need to meet with a dietitian? What number can I call if I have questions? When are the best times to check my blood glucose? Where to find more information: [place] [employer]: diabetes.org Academy of Nutrition and Dietetics: eatright.org National [place] of Diabetes and Digestive and Kidney Diseases: niddk.nih.gov Association of Diabetes Care & Education Specialists: diabeteseducator.org Summary It is important to have healthy eating habits because your blood sugar (glucose) levels are greatlyaffected by what you eat and drink. It is important to use alcohol carefully. A healthy meal plan will help you manage your blood glucose and lower your risk of heart disease. Your health care provider may recommend that you work with a dietitian to make a meal plan that is best for you. This information is not intended to replace advice given to you by your health care provider. Make sure you discuss any questions you have with your health care provider. Document Revised: 05/19/2021 Document Reviewed: 05/19/2021 [employer] Patient Education 2022 [employer]. 02/16/2024 05:12:27 Diabetes Mellitus and Exercise Diabetes Mellitus and Exercise Exercising regularly is important for overall health, especially for people who have diabetes mellitus. Exercising is not only about losing weight. It has many other health benefits, such as increasing muscle strength and bone density and reducing body fat and stress. This leads to improved fitness, flexibility, and endurance, all of which result in better overall health. What are the benefits of exercise if I have diabetes? Exercise has many benefits for people with diabetes. They include: Helping to lower and control blood sugar (glucose). Helping the body to respond better to the hormone insulin by improving insulin sensitivity. Reducing how much insulin the body needs. Lowering the risk for heart disease by: ?Lowering bad cholesterol and triglyceride levels. ?Increasing good cholesterol levels. ?Lowering blood pressure. ?Lowering blood glucose levels. What is my activity plan? Your health care provider or certified prosthetist/orthotist can help you make a plan for the type and frequency of exercise that works for you. This is called your activity plan. Be sure to: Get at least 150 minutes of medium-intensity or high-intensity exercise each week. Exercises may include brisk walking, biking, or water aerobics. Do stretching and strengthening exercises, such as yoga or weight lifting, at least 2 times a week. Spread out your activity over at least 3 days of the week. Get some form of physical activity each day. ?Do not go more than 2 days in a row without some kind of physical activity. ?Avoid being inactive for more than 90 minutes at a time. Take frequent breaks to walk or stretch. Choose exercises or activities that you enjoy. Set realistic goals. Start slowly and gradually increase your exercise intensity over time. How do I manage my diabetes during exercise? Monitor your blood glucose Check your blood glucose before and after exercising. If your blood glucose is: ?240 mg/dL (13.3 mmol/L) or higher before you exercise, check your urine for ketones. These are chemicals created by the liver. If you have ketones in your urine, do not exercise until your blood glucose returns to normal. ?100 mg/dL (5.6 mmol/L) or lower, eat a snack containing 15 20 grams of carbohydrate. Check your blood glucose 15 minutes after the snack to make sure that your glucose level is above 100 mg/dL (5.6 mmol/L) before you start your exercise. Know the symptoms of low blood glucose (hypoglycemia) and how to treat it. Your risk for hypoglycemia increases during and after exercise. Follow these tips and your health care provider's instructions Keep a carbohydrate snack that is fast-acting for use before, during, and after exercise to help prevent or treat hypoglycemia. Avoid injecting insulin into areas of the body that are going to be exercised. For example, avoid injecting insulin into: ?Your arms, when you are about to play tennis. ?Your legs, when you are about to go jogging. Keep records of your exercise habits. Doing this can help you and your health care provider adjust your diabetes management plan as needed. Write down: ?Food that you eat before and after you exercise. ?Blood glucose levels before and after you exercise. ?The type and amount of exercise you have done. Work with your health care provider when you start a new exercise or activity. He or she may need to: ?Make sure that the activity is safe for you. ?Adjust your insulin, other medicines, and food that you eat. Drink plenty of water while you exercise. This prevents loss of water (dehydration) and problems caused by a lot of heat in the body (heat stroke). Where to find more information [place] Diabetes Association: www.diabetes.org Summary Exercising regularly is important for overall health, especially for people who have diabetes mellitus. Exercising has many health benefits. It increases muscle strength and bone density and reduces bodyfat and stress. It also lowers and controls blood glucose. Your health care provider or certified prosthetist/orthotist can help you make an activity plan for thetype and frequency of exercise that works for you. Work with your health care provider to make sure any new activity is safe for you. Also work with your health care provider to adjust your insulin, other medicines, and the food you eat. This information is not intended to replace advice given to you by your health care provider. Make sure you discuss any questions you have with your health care provider. Document Revised: 07/13/2020 Document Reviewed: 07/13/2020 [employer] Patient Education 2022 [employer] 02/16/2024 05:12:25 BMI for Adults BMI for Adults What is BMI? Body mass index (BMI) is a number that is calculated from a person's weight and height. BMI can help estimate how much of a person's weight is composed of fat. BMI does not measure body fat directly.Rather, it is an alternative to procedures that directly measure body fat, which can be difficult and expensive. BMI can help identify people who may be at higher risk for certain medical problems. What are BMI measurements used for? BMI is used as a screening tool to identify possible weight problems. It helps determine whether a person is obese, overweight, a healthy weight, or underweight. BMI is useful for: Identifying a weight problem that may be related to a medical condition or may increase the risk for medical problems. Promoting changes, such as changes in diet and exercise, to help reach a healthy weight. BMI screening can be repeated to see if these changes are working. How is BMI calculated? BMI involves measuring your weight in relation to your height. Both height and weight are measured,and the BMI is calculated from those numbers. This can be done either in [place] or metric measurements. Note that charts and online BMI calculators are available to help you find your BMI quickly and easily without having to do these calculations yourself. To calculate your BMI in [place] measurements: 1.Measure your weight in pounds (lb). 2.Multiply the number of pounds by 703. For example, for a person who weighs 180 lb, multiply that number by 703, which equals 126,540. 3.Measure your height in inches. Then multiply that number by itself to get a measurement called inches squared. For example, for a person who is 70 inches tall, the inches squared measurement is 70 inches x 70inches, which equals 4,900 inches squared. 4.Divide the total from step 2 (number of lb x 703) by the total from step 3 (inches squared): 126,540 4,900 = 25.8. This is your BMI. To calculate your BMI in metric measurements: 1.Measure your weight in kilograms (kg). 2.Measure your height in meters (m). Then multiply that number by itself to get a measurement called meters squared. For example, for a person who is 1.75 m tall, the meters squared measurement is 1.75 m x 1.75 m, which is equal to 3.1 meters squared. 3.Divide the number of kilograms (your weight) by the meters squared number. In this example: 70 3.1 = 22.6. This is your BMI. What do the results mean? BMI charts are used to identify whether you are underweight, normal weight, overweight, or obese. The following guidelines will be used: Underweight: BMI less than 18.5. Normal weight: BMI between 18.5 and 24.9. Overweight: BMI between 25 and 29.9. Obese: BMI of 30 or above. Keep these notes in mind: Weight includes both fat and muscle, so someone with a muscular build, such as an athlete, may havea BMI that is higher than 24.9. In cases like these, BMI is not an accurate measure of body fat. To determine if excess body fat is the cause of a BMI of 25 or higher, further assessments may needto be done by a health care provider. BMI is usually interpreted in the same way for men and women. Where to find more information For more information about BMI, including tools to quickly calculate your BMI, go to these websites: Centers for Disease Control and Prevention: www.cdc.gov [place] [employer] Association: www.heart.org National Heart, Lung, and Blood Ewing: www.nhlbi.nih.gov Summary Body mass index (BMI) is a number that is calculated from a person's weight and height. BMI may help estimate how much of a person's weight is composed of fat. BMI can help identify thosewho may be at higher risk for certain medical problems. BMI can be measured using [place] measurements or metric measurements. BMI charts are used to identify whether you are underweight, normal weight, overweight, or obese. This information is not intended to replace advice given to you by your health care provider. Make sure you discuss any questions you have with your health care provider. Document Revised: 07/08/2020 Document Reviewed: 05/15/2020 [employer] Patient Education 2022 [employer]. Follow Up Care 11/20/2023 14:11:07 With:Brooke ELIZALDE MD [facility] Address: When:Within 3 Month(s) [facility] 04-05-2024 Evaluation + Plan noteExtracted from: Title:ED Note Author:Jean Huang DO Date: Discoloration of skin of toe (L81.9: Disorder of pigmentation, unspecified) Future Appointments Appointment Date:02/16/2024 01:00:00 PM Scheduled Provider:Brooke ELIZALDE MD Location:[facility] Appointment Type: Open Appointment Date:04/17/2024 01:00:00 PM Scheduled Provider: Location:[facility] Appointment Type:FM Medicare Wellness Subsequent [facility]04-05-2024 Hospital Discharge instructions Patient Education 02/02/2024 10:41:45 Medical Screening Exam Medical Screening Exam A medical screening exam (MSE) helps to determine whether you need immediate medical treatment relating to any number of symptoms you are having. This type of exam may be done in an emergency department, an urgent care setting, or your health care provider's office. Depending on your symptoms and severity, you may need additional tests or medical therapy. It is important to note that an MSE does not necessarily mean that you will need or receive furthermedical testing or interventions if your symptoms are not deemed to be medically urgent (emergent). Tell a health care provider about: Any allergies you have. All medicines you are taking, including vitamins, herbs, eye drops, creams, and ozyu-yer-qkwjumh medicines. Any problems you or family members have had with anesthetic medicines. Any bleeding problems you have. Any surgeries you have had. Any medical conditions you have. Whether you are or may be . What happens during the test? During the exam, a health care provider does a short, often focused, physical exam and asks about your medical history to assess: Your current symptoms. Your overall health. Your need for possible further medical intervention. What can I expect after the test? If you have a regular health care provider, make an appointment for a follow-up visit with him or her. If you do not have a regular health care provider, ask about resources in your community. Your medical screening exam may determine that: You do not need emergency treatment at this time. You need treatment right away. You need to be transferred to another medical center. This may happen if you need an emergent specialist or data power consultant that is not available at the medical center you are at. You need to have more tests. A emergency medical service coordinator may be consulted if needed. Get help right away if: Your condition gets worse. You develop new or troubling symptoms before you see your health care provider. These symptoms may represent a serious problem that is an emergency. Do not wait to see if the symptoms will go away. Get medical help right away. Call your local emergency services (911 in the [place] Do not drive yourself to the hospital. Summary A medical screening exam helps to determine whether you need medical treatment right away. This type of exam may be done in an emergency department, an urgent care setting, or your health care provider's office. During the exam, a health care provider does a short physical exam and asks about your current symptoms and overall health. Depending on the exam, more tests or therapies may be ordered. However, an MSE does not necessarilymean that you will have further medical testing if your symptoms are not deemed to be urgent. If you need further care that is not offered at your current medical center, you may need to be transferred to another facility. This information is not intended to replace advice given to you by your health care provider. Make sure you discuss any questions you have with your health care provider. Document Revised: 06/29/2022 Document Reviewed: 02/24/2022 [employer] Patient Education 2022 [employer]. 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 Return to the ED with pain, fever, or worsening symptoms. With:Brooke ELIZALDE Address: [address] [place] [address] [address] [phone] [facility] (1) When:02/05/2024 10:41:05 Comments:Call the office of your primary care doctor to arrange for follow-up within the above-stated timeframe. Follow-up with your primary care doctor about this ED visit. You should review your labs, imaging, and diagnoses from this ED visit with your primary care physician. There are occasionally non-emergent findings that require additional follow-up after your ED visit. If you were prescribed medications you should discuss possible side-effects and drug interactions with your pharmacist. Call 911 or go to the nearest Emergency Department if you develop any new or worsening symptoms. [facility]01-22-2024 Hospital Discharge instructions Patient Education 11/20/2023 06:42:46 Diabetes Mellitus and Nutrition, Adult Diabetes Mellitus and Nutrition, Adult When you have diabetes, or diabetes mellitus, it is very important to have healthy eating habits because your blood sugar (glucose) levels are greatly affected by what you eat and drink. Eating healthy foods in the right amounts, at about the same times every day, can help you: Manage your blood glucose. Lower your risk of heart disease. Improve your blood pressure. Reach or maintain a healthy weight. What can affect my meal plan? Every person with diabetes is different, and each person has different needs for a meal plan. Your health care provider may recommend that you work with a dietitian to make a meal plan that is best for you. Your meal plan may vary depending on factors such as: The calories you need. The medicines you take. Your weight. Your blood glucose, blood pressure, and cholesterol levels. Your activity level. Other health conditions you have, such as heart or kidney disease. How do carbohydrates affect me? Carbohydrates, also called carbs, affect your blood glucose level more than any other type of food.Eating carbs raises the amount of glucose in your blood. It is important to know how many carbs you can safely have in each meal. This is different for every person. Your dietitian can help you calculate how many carbs you should have at each meal and for each snack. How does alcohol affect me? Alcohol can cause a decrease in blood glucose (hypoglycemia), especially if you use insulin or takecertain diabetes medicines by mouth. Hypoglycemia can be a life-threatening condition. Symptoms of hypoglycemia, such as sleepiness, dizziness, and confusion, are similar to symptoms of having too much alcohol. Do not drink alcohol if: ?Your health care provider tells you not to drink. ?You are , may be , or are planning to become . If you drink alcohol: ?Limit how much you have to: ?0 1 drink a day for women. ?0 2 drinks a day for men. ?Know how much alcohol is in your drink. In the [place] one drink equals one 12 oz bottle of beer (355 mL), one 5 oz glass of wine (148 mL), or one 1 oz glass of hard liquor (44 mL). ?Keep yourself hydrated with water, diet soda, or unsweetened iced tea. Keep in mind that regular soda, juice, and other mixers may contain a lot of sugar and must be counted as carbs. What are tips for following this plan? Reading food labels Start by checking the serving size on the Nutrition Facts label of packaged foods and drinks. The number of calories and the amount of carbs, fats, and other nutrients listed on the label are based on one serving of the item. Many items contain more than one serving per package. Check the total grams (g) of carbs in one serving. Check the number of grams of saturated fats and trans fats in one serving. Choose foods that have alow amount or none of these fats. Check the number of milligrams (mg) of salt (sodium) in one serving. Most people should limit totalsodium intake to less than 2,300 mg per day. Always check the nutrition information of foods labeled as low-fat or nonfat. These foods may be higher in added sugar or refined carbs and should be avoided. Talk to your dietitian to identify your daily goals for nutrients listed on the label. Shopping Avoid buying canned, pre-made, or processed foods. These foods tend to be high in fat, sodium, and added sugar. Shop around the outside edge of the grocery store. This is where you will most often find fresh fruits and vegetables, bulk grains, fresh meats, and fresh dairy products. Cooking Use low-heat cooking methods, such as baking, instead of high-heat cooking methods, such as deep frying. Cook using healthy oils, such as olive, canola, or sunflower oil. Avoid cooking with butter, cream, or high-fat meats. Meal planning Eat meals and snacks regularly, preferably at the same times every day. Avoid going long periods oftime without eating. Eat foods that are high in fiber, such as fresh fruits, vegetables, beans, and whole grains. Eat 4 6 oz (112 168 g) of lean protein each day, such as lean meat, chicken, fish, eggs, or tofu. One ounce (oz) (28 g) of lean protein is equal to: ?1 oz (28 g) of meat, chicken, or fish. ?1 egg. ? cup (62 g) of tofu. Eat some foods each day that contain healthy fats, such as avocado, nuts, seeds, and fish. What foods should I eat? Fruits Berries. Apples. Oranges. Peaches. Apricots. Plums. Grapes. Mangoes. Papayas. Pomegranates. Kiwi. Cherries. Vegetables Leafy greens, including lettuce, spinach, kale, chard, lesley greens, mustard greens, and cabbage.Beets. Cauliflower. Broccoli. Carrots. Green beans. Tomatoes. Peppers. Onions. Cucumbers. Almo sprouts. Grains Whole grains, such as whole-wheat or whole-grain bread, crackers, tortillas, cereal, and pasta. Unsweetened oatmeal. Quinoa. Brown or wild rice. Meats and other proteins Seafood. Poultry without skin. Lean cuts of poultry and beef. Tofu. Nuts. Seeds. Dairy Low-fat or fat-free dairy products such as milk, yogurt, and cheese. The items listed above may not be a complete list of foods and beverages you can eat and drink. Contact a dietitian for more information. What foods should I avoid? Fruits Fruits canned with syrup. Vegetables Canned vegetables. Frozen vegetables with butter or cream sauce. Grains Refined white flour and flour products such as bread, pasta, snack foods, and cereals. Avoid all processed foods. Meats and other proteins Fatty cuts of meat. Poultry with skin. Breaded or fried meats. Processed meat. Avoid saturated fats. Dairy Full-fat yogurt, cheese, or milk. Beverages Sweetened drinks, such as soda or iced tea. The items listed above may not be a complete list of foods and beverages you should avoid. Contact a dietitian for more information. Questions to ask a health care provider Do I need to meet with a certified diabetes care and education rep? Do I need to meet with a dietitian? What number can I call if I have questions? When are the best times to check my blood glucose? Where to find more information: [place] Diabetes Association: diabetes.org Academy of Nutrition and Dietetics: eatright.org National Ewing of Diabetes and Digestive and Kidney Diseases: niddk.nih.gov Association of Diabetes Care & Education Specialists: diabeteseducator.org Summary It is important to have healthy eating habits because your blood sugar (glucose) levels are greatlyaffected by what you eat and drink. It is important to use alcohol carefully. A healthy meal plan will help you manage your blood glucose and lower your risk of heart disease. Your health care provider may recommend that you work with a dietitian to make a meal plan that is best for you. This information is not intended to replace advice given to you by your health care provider. Make sure you discuss any questions you have with your health care provider. Document Revised: 05/19/2021 Document Reviewed: 05/19/2021 [employer] Patient Education 2022 [employer]. 11/20/2023 06:42:45 BMI for Adults BMI for Adults What is BMI? Body mass index (BMI) is a number that is calculated from a person's weight and height. BMI can help estimate how much of a person's weight is composed of fat. BMI does not measure body fat directly.Rather, it is an alternative to procedures that directly measure body fat, which can be difficult and expensive. BMI can help identify people who may be at higher risk for certain medical problems. What are BMI measurements used for? BMI is used as a screening tool to identify possible weight problems. It helps determine whether a person is obese, overweight, a healthy weight, or underweight. BMI is useful for: Identifying a weight problem that may be related to a medical condition or may increase the risk for medical problems. Promoting changes, such as changes in diet and exercise, to help reach a healthy weight. BMI screening can be repeated to see if these changes are working. How is BMI calculated? BMI involves measuring your weight in relation to your height. Both height and weight are measured,and the BMI is calculated from those numbers. This can be done either in [place] or metric measurements. Note that charts and online BMI calculators are available to help you find your BMI quickly and easily without having to do these calculations yourself. To calculate your BMI in [place] measurements: 1.Measure your weight in pounds (lb). 2.Multiply the number of pounds by 703. For example, for a person who weighs 180 lb, multiply that number by 703, which equals 126,540. 3.Measure your height in inches. Then multiply that number by itself to get a measurement called inches squared. For example, for a person who is 70 inches tall, the inches squared measurement is 70 inches x 70inches, which equals 4,900 inches squared. 4.Divide the total from step 2 (number of lb x 703) by the total from step 3 (inches squared): 126,540 4,900 = 25.8. This is your BMI. To calculate your BMI in metric measurements: 1.Measure your weight in kilograms (kg). 2.Measure your height in meters (m). Then multiply that number by itself to get a measurement called meters squared. For example, for a person who is 1.75 m tall, the meters squared measurement is 1.75 m x 1.75 m, which is equal to 3.1 meters squared. 3.Divide the number of kilograms (your weight) by the meters squared number. In this example: 70 3.1 = 22.6. This is your BMI. What do the results mean? BMI charts are used to identify whether you are underweight, normal weight, overweight, or obese. The following guidelines will be used: Underweight: BMI less than 18.5. Normal weight: BMI between 18.5 and 24.9. Overweight: BMI between 25 and 29.9. Obese: BMI of 30 or above. Keep these notes in mind: Weight includes both fat and muscle, so someone with a muscular build, such as an athlete, may havea BMI that is higher than 24.9. In cases like these, BMI is not an accurate measure of body fat. To determine if excess body fat is the cause of a BMI of 25 or higher, further assessments may needto be done by a health care provider. BMI is usually interpreted in the same way for men and women. Where to find more information For more information about BMI, including tools to quickly calculate your BMI, go to these websites: Centers for Disease Control and Prevention: www.cdc.gov [place] Heart Association: www.heart.org National Heart, Lung, and Blood Ewing: www.nhlbi.nih.gov Summary Body mass index (BMI) is a number that is calculated from a person's weight and height. BMI may help estimate how much of a person's weight is composed of fat. BMI can help identify thosewho may be at higher risk for certain medical problems. BMI can be measured using [place] measurements or metric measurements. BMI charts are used to identify whether you are underweight, normal weight, overweight, or obese. This information is not intended to replace advice given to you by your health care provider. Make sure you discuss any questions you have with your health care provider. Document Revised: 07/08/2020 Document Reviewed: 05/15/2020 [employer] Patient Education 2022 [employer]. 11/20/2023 06:42:44 Diabetes Mellitus and Exercise Diabetes Mellitus and Exercise Exercising regularly is important for overall health, especially for people who have diabetes mellitus. Exercising is not only about losing weight. It has many other health benefits, such as increasing muscle strength and bone density and reducing body fat and stress. This leads to improved fitness, flexibility, and endurance, all of which result in better overall health. What are the benefits of exercise if I have diabetes? Exercise has many benefits for people with diabetes. They include: Helping to lower and control blood sugar (glucose). Helping the body to respond better to the hormone insulin by improving insulin sensitivity. Reducing how much insulin the body needs. Lowering the risk for heart disease by: ?Lowering bad cholesterol and triglyceride levels. ?Increasing good cholesterol levels. ?Lowering blood pressure. ?Lowering blood glucose levels. What is my activity plan? Your health care provider or certified prosthetist/orthotist can help you make a plan for the type and frequency of exercise that works for you. This is called your activity plan. Be sure to: Get at least 150 minutes of medium-intensity or high-intensity exercise each week. Exercises may include brisk walking, biking, or water aerobics. Do stretching and strengthening exercises, such as yoga or weight lifting, at least 2 times a week. Spread out your activity over at least 3 days of the week. Get some form of physical activity each day. ?Do not go more than 2 days in a row without some kind of physical activity. ?Avoid being inactive for more than 90 minutes at a time. Take frequent breaks to walk or stretch. Choose exercises or activities that you enjoy. Set realistic goals. Start slowly and gradually increase your exercise intensity over time. How do I manage my diabetes during exercise? Monitor your blood glucose Check your blood glucose before and after exercising. If your blood glucose is: ?240 mg/dL (13.3 mmol/L) or higher before you exercise, check your urine for ketones. These are chemicals created by the liver. If you have ketones in your urine, do not exercise until your blood glucose returns to normal. ?100 mg/dL (5.6 mmol/L) or lower, eat a snack containing 15 20 grams of carbohydrate. Check your blood glucose 15 minutes after the snack to make sure that your glucose level is above 100 mg/dL (5.6 mmol/L) before you start your exercise. Know the symptoms of low blood glucose (hypoglycemia) and how to treat it. Your risk for hypoglycemia increases during and after exercise. Follow these tips and your health care provider's instructions Keep a carbohydrate snack that is fast-acting for use before, during, and after exercise to help prevent or treat hypoglycemia. Avoid injecting insulin into areas of the body that are going to be exercised. For example, avoid injecting insulin into: ?Your arms, when you are about to play tennis. ?Your legs, when you are about to go jogging. Keep records of your exercise habits. Doing this can help you and your health care provider adjust your diabetes management plan as needed. Write down: ?Food that you eat before and after you exercise. ?Blood glucose levels before and after you exercise. ?The type and amount of exercise you have done. Work with your health care provider when you start a new exercise or activity. He or she may need to: ?Make sure that the activity is safe for you. ?Adjust your insulin, other medicines, and food that you eat. Drink plenty of water while you exercise. This prevents loss of water (dehydration) and problems caused by a lot of heat in the body (heat stroke). Where to find more information [place] Diabetes Association: www.diabetes.org Summary Exercising regularly is important for overall health, especially for people who have diabetes mellitus. Exercising has many health benefits. It increases muscle strength and bone density and reduces bodyfat and stress. It also lowers and controls blood glucose. Your health care provider or certified prosthetist/orthotist can help you make an activity plan for thetype and frequency of exercise that works for you. Work with your health care provider to make sure any new activity is safe for you. Also work with your health care provider to adjust your insulin, other medicines, and the food you eat. This information is not intended to replace advice given to you by your health care provider. Make sure you discuss any questions you have with your health care provider. Document Revised: 07/13/2020 Document Reviewed: 07/13/2020 [employer] Patient Education 2022 [employer]. Follow Up Care 08/04/2023 14:00:43 With:THADDEUS DEUTSCH, JORDI Piedra Address: When:Within 3 Month(s) [facility] 08-07-2023 Hospital Discharge instructions Patient Education 2023 16:37:29 Cellulitis, Adult, Ydgj-zl-Lfwl Cellulitis, Adult Cellulitis is a skin infection. The infected area is often warm, red, swollen, and sore. It occurs most often in the arms and lower legs. It is very important to get treated for this condition. What are the causes? This condition is caused by bacteria. The bacteria enter through a break in the skin, such as a cut, burn, insect bite, open sore, or crack. What increases the risk? This condition is more likely to occur in people who: Have a weak body defense system (immune system). Have open cuts, medrano, bites, or scrapes on the skin. Are older than 60 years of age. Have a blood sugar problem (diabetes). Have a long-lasting (chronic) liver disease (cirrhosis) or kidney disease. Are very overweight (obese). Have a skin problem, such as: ?Itchy rash (eczema). ?Slow movement of blood in the veins (venous stasis). ?Fluid buildup below the skin (edema). Have been treated with high-energy rays (radiation). Use IV drugs. What are the signs or symptoms? Symptoms of this condition include: Skin that is: ?Red. ?Streaking. ?Spotting. ?Swollen. ?Sore or painful when you touch it. ?Warm. A fever. Chills. Blisters. How is this diagnosed? This condition is diagnosed based on: Medical history. Physical exam. Blood tests. Imaging tests. How is this treated? Treatment for this condition may include: Medicines to treat infections or allergies. Home care, such as: ?Rest. ?Placing cold or warm cloths (compresses) on the skin. Hospital care, if the condition is very bad. Follow these instructions at home: Medicines Take boki-mcp-sklmqht and prescription medicines only as told by your doctor. If you were prescribed an antibiotic medicine, take it as told by your doctor. Do not stop taking it even if you start to feel better. General instructions Drink enough fluid to keep your pee (urine) pale yellow. Do not touch or rub the infected area. Raise (elevate) the infected area above the level of your heart while you are sitting or lying down. Place cold or warm cloths on the area as told by your doctor. Keep all follow-up visits as told by your doctor. This is important. Contact a doctor if: You have a fever. You do not start to get better after 1 2 days of treatment. Your bone or joint under the infected area starts to hurt after the skin has healed. Your infection comes back. This can happen in the same area or another area. You have a swollen bump in the area. You have new symptoms. You feel ill and have muscle aches and pains. Get help right away if: Your symptoms get worse. You feel very sleepy. You throw up (vomit) or have watery poop (diarrhea) for a long time. You see red streaks coming from the area. Your red area gets larger. Your red area turns dark in color. These symptoms may represent a serious problem that is an emergency. Do not wait to see if the symptoms will go away. Get medical help right away. Call your local emergency services (911 in the [place] Do not drive yourself to the hospital. Summary Cellulitis is a skin infection. The area is often warm, red, swollen, and sore. This condition is treated with medicines, rest, and cold and warm cloths. Take all medicines only as told by your doctor. Tell your doctor if symptoms do not start to get better after 1 2 days of treatment. This information is not intended to replace advice given to you by your health care provider. Make sure you discuss any questions you have with your health care provider. Document Revised: 07/28/2022 Document Reviewed: 07/28/2022 [employer] Patient Education 2022 [employer]. Follow Up Care 2023 15:02:55 With:Brooke ELIZALDE Address: [address] [place], [place] [id number]- Business (1) When:06/08/2023 16:28:40 Comments:Follow-up with your primary care provider in 3 to 5 days. If symptoms worsen, do not improve, or new symptoms arise please report back to emergency department for further evaluation. [facility]08-07-2023 Evaluation + Plan noteExtracted from: Title:ED Note Author:Daniel HAMILTON, Addison Lazo:06/05/23 Cellulitis of right leg (L03 .115: Cellulitis of right lower limb) Orders: acetaminophen-hydrocodone, 1 tab(s), Oral, q6hr for pain for 3 day(s), 12 tab(s), Refill(s) 0, [facility] 1985, 168, cm, 06/05/23 15:25:00 EDT, Height/Length Dosing, 143.3, kg, 06/05/23 15:25:00 EDT, Weight Dosing acetaminophen-oxycodone, 1 tab(s), Oral, q6hr for pain for 2 day(s), 10 tab(s), Refill(s) 0, [facility] 1985, 168, cm, 06/05/23 15:25:00 EDT, Height/Length Dosing, 143.3, kg, 06/05/23 15:25:00 EDT, Weight Dosing cephalexin, 500 mg = 1 cap(s), Oral, q6hr, X 7 day(s), # 28 cap(s), Refills(s) 0, Pharmacy: [facility] 1985, 168, cm, 06/05/23 15:25:00 EDT, Height/Length Dosing, 143.3, kg, 06/05/23 15:25:00 EDT, Weight Dosing US LE Venous Duplex Right Future Appointments Appointment Date:08/04/2023 01:00:00 PM Scheduled Provider:Brooke ELIZALDE MD Location:[facility] Appointment Type: Open Appointment Date:04/17/2024 01:00:00 PM Scheduled Provider: Location:[facility] Appointment Type: Medicare Wellness [facility]03-03-2023 Hospital Discharge instructions Patient Education 12/30/2022 14:34:35 BMI for Adults BMI for Adults Body mass index (BMI) is a number that is calculated from a person's weight and height. BMI may help to estimate how much of a person's weight is composed of fat. BMI can help identify those who may be at higher risk for certain medical problems. How is BMI used with adults? BMI is used as a screening tool to identify possible weight problems. It is used to check whether aperson is obese, overweight, healthy weight, or underweight. How is BMI calculated? BMI measures your weight and compares it to your height. This can be done either in [place] ([place] or metric measurements. Note that charts are available to help you find your BMI quickly and easily without having to do these calculations yourself. To calculate your BMI in [place] measurements, your health care provider will: 1.Measure your weight in pounds (lb). 2.Multiply the number of pounds by 703. For example, for a person who weighs 180 lb, multiply that number by 703, which equals 126,540. 3.Measure your height in inches (in). Then multiply that number by itself to get a measurement called inches squared. For example, for a person who is 70 in tall, the inches squared measurement is 70 in x 70 in, which equals 4900 inches squared. 4.Divide the total from Step 2 (number of lb x 703) by the total from Step 3 (inches squared): 126,540 4900 = 25.8. This is your BMI. To calculate your BMI in metric measurements, your health care provider will: 1.Measure your weight in kilograms (kg). 2.Measure your height in meters (m). Then multiply that number by itself to get a measurement called meters squared. For example, for a person who is 1.75 m tall, the meters squared measurement is 1.75 m x 1.75 m, which is equal to 3.1 meters squared. 3.Divide the number of kilograms (your weight) by the meters squared number. In this example: 70 3.1 = 22.6. This is your BMI. How is BMI interpreted? To interpret your results, your health care provider will use BMI charts to identify whether you are underweight, normal weight, overweight, or obese. The following guidelines will be used: Underweight: BMI less than 18.5. Normal weight: BMI between 18.5 and 24.9. Overweight: BMI between 25 and 29.9. Obese: BMI of 30 and above. Please note: Weight includes both fat and muscle, so someone with a muscular build, such as an athlete, may havea BMI that is higher than 24.9. In cases like these, BMI is not an accurate measure of body fat. To determine if excess body fat is the cause of a BMI of 25 or higher, further assessments may needto be done by a health care provider. BMI is usually interpreted in the same way for men and women. Why is BMI a useful tool? BMI is useful in two ways: Identifying a weight problem that may be related to a medical condition, or that may increase the risk for medical problems. Promoting lifestyle and diet changes in order to reach a healthy weight. Summary Body mass index (BMI) is a number that is calculated from a person's weight and height. BMI may help to estimate how much of a person's weight is composed of fat. BMI can help identify those who may be at higher risk for certain medical problems. BMI can be measured using [place] measurements or metric measurements. To interpret your results, your health care provider will use BMI charts to identify whether you are underweight, normal weight, overweight, or obese. This information is not intended to replace advice given to you by your health care provider. Make sure you discuss any questions you have with your health care provider. Document Released: 06/27/2005 Document Revised: 09/28/2018 Document Reviewed: 08/29/2018 [employer] Patient Education 2020 [employer]. 12/30/2022 07:06:30 Diabetes Mellitus and Nutrition, Adult Diabetes Mellitus and Nutrition, Adult When you have diabetes (diabetes mellitus), it is very important to have healthy eating habits because your blood sugar (glucose) levels are greatly affected by what you eat and drink. Eating healthyfoods in the appropriate amounts, at about the same times every day, can help you: Control your blood glucose. Lower your risk of heart disease. Improve your blood pressure. Reach or maintain a healthy weight. Every person with diabetes is different, and each person has different needs for a meal plan. Your health care provider may recommend that you work with a diet and food and nutrition professor (dietitian) tomake a meal plan that is best for you. Your meal plan may vary depending on factors such as: The calories you need. The medicines you take. Your weight. Your blood glucose, blood pressure, and cholesterol levels. Your activity level. Other health conditions you have, such as heart or kidney disease. How do carbohydrates affect me? Carbohydrates, also called carbs, affect your blood glucose level more than any other type of food.Eating carbs naturally raises the amount of glucose in your blood. Carb counting is a method for keeping track of how many carbs you eat. Counting carbs is important to keep your blood glucose at a healthy level, especially if you use insulin or take certain oral diabetes medicines. It is important to know how many carbs you can safely have in each meal. This is different for every person. Your dietitian can help you calculate how many carbs you should have at each meal and for each snack. Foods that contain carbs include: Bread, cereal, rice, pasta, and crackers. Potatoes and corn. Peas, beans, and lentils. Milk and yogurt. Fruit and juice. Desserts, such as cakes, cookies, ice cream, and candy. How does alcohol affect me? Alcohol can cause a sudden decrease in blood glucose (hypoglycemia), especially if you use insulin or take certain oral diabetes medicines. Hypoglycemia can be a life-threatening condition. Symptoms of hypoglycemia (sleepiness, dizziness, and confusion) are similar to symptoms of having too much alcohol. If your health care provider says that alcohol is safe for you, follow these guidelines: Limit alcohol intake to no more than 1 drink per day for non women and 2 drinks per day formen. One drink equals 12 oz of beer, 5 oz of wine, or 1 oz of hard liquor. Do not drink on an empty stomach. Keep yourself hydrated with water, diet soda, or unsweetened iced tea. Keep in mind that regular soda, juice, and other mixers may contain a lot of sugar and must be counted as carbs. What are tips for following this plan? Reading food labels Start by checking the serving size on the Nutrition Facts label of packaged foods and drinks. Theamount of calories, carbs, fats, and other nutrients listed on the label is based on one serving ofthe item. Many items contain more than one serving per package. Check the total grams (g) of carbs in one serving. You can calculate the number of servings of carbs in one serving by dividing the total carbs by 15. For example, if a food has 30 g of total carbs, it would be equal to 2 servings of carbs. Check the number of grams (g) of saturated and trans fats in one serving. Choose foods that have low or no amount of these fats. Check the number of milligrams (mg) of salt (sodium) in one serving. Most people should limit totalsodium intake to less than 2,300 mg per day. Always check the nutrition information of foods labeled as low-fat or nonfat . These foods may be higher in added sugar or refined carbs and should be avoided. Talk to your dietitian to identify your daily goals for nutrients listed on the label. Shopping Avoid buying canned, premade, or processed foods. These foods tend to be high in fat, sodium, and added sugar. Shop around the outside edge of the grocery store. This includes fresh fruits and vegetables, bulk grains, fresh meats, and fresh dairy. Cooking Use low-heat cooking methods, such as baking, instead of high-heat cooking methods like deep frying. Cook using healthy oils, such as olive, canola, or sunflower oil. Avoid cooking with butter, cream, or high-fat meats. Meal planning Eat meals and snacks regularly, preferably at the same times every day. Avoid going long periods oftime without eating. Eat foods high in fiber, such as fresh fruits, vegetables, beans, and whole grains. Talk to your dietitian about how many servings of carbs you can eat at each meal. Eat 4 6 ounces (oz) of lean protein each day, such as lean meat, chicken, fish, eggs, or tofu. One oz of lean protein is equal to: ?1 oz of meat, chicken, or fish. ?1 egg. ? cup of tofu. Eat some foods each day that contain healthy fats, such as avocado, nuts, seeds, and fish. Lifestyle Check your blood glucose regularly. Exercise regularly as told by your health care provider. This may include: ?150 minutes of moderate-intensity or vigorous-intensity exercise each week. This could be brisk walking, biking, or water aerobics. ?Stretching and doing strength exercises, such as yoga or weightlifting, at least 2 times a week. Take medicines as told by your health care provider. Do not use any products that contain nicotine or tobacco, such as cigarettes and e-cigarettes. If you need help quitting, ask your health care provider. Work with a counselor or special education paraeducator to identify strategies to manage stress and any emotional and social challenges. Questions to ask a health care provider Do I need to meet with a special education paraeducator? Do I need to meet with a dietitian? What number can I call if I have questions? When are the best times to check my blood glucose? Where to find more information: [place] Diabetes Association: diabetes.org Academy of Nutrition and Dietetics: www.eatright.org National [place]wing of Diabetes and Digestive and Kidney Diseases (NIH): www.niddk.nih.gov Summary A healthy meal plan will help you control your blood glucose and maintain a healthy lifestyle. Working with a diet and food and nutrition professor (dietitian) can help you make a meal plan that is bestfor you. Keep in mind that carbohydrates (carbs) and alcohol have immediate effects on your blood glucose levels. It is important to count carbs and to use alcohol carefully. This information is not intended to replace advice given to you by your health care provider. Make sure you discuss any questions you have with your health care provider. Document Released: 07/13/2006 Document Revised: 09/28/2018 Document Reviewed: 11/20/2017 [employer] Patient Education 2020 [employer]. 12/30/2022 07:06:25 Fat and Cholesterol Restricted Eating Plan Fat and Cholesterol Restricted Eating Plan Eating a diet that limits fat and cholesterol may help lower your risk for heart disease and other conditions. Your body needs fat and cholesterol for basic functions, but eating too much of these things can be harmful to your health. Your health care provider may order lab tests to check your blood fat (lipid) and cholesterol levels. This helps your health care provider understand your risk for certain conditions and whether you need to make diet changes. Work with your health care provider or dietitian to make an eating plan that is right for you. Your plan includes: Limit your fat intake to % or less of your total calories a day. Limit your saturated fat intake to % or less of your total calories a day. Limit the amount of cholesterol in your diet to less than mg a day. Eat g of fiber a day. What are tips for following this plan? General guidelines If you are overweight, work with your health care provider to lose weight safely. Losing just 5 10%of your body weight can improve your overall health and help prevent diseases such as diabetes and heart disease. Avoid: ?Foods with added sugar. ?Fried foods. ?Foods that contain partially hydrogenated oils, including stick margarine, some tub margarines, cookies, crackers, and other baked goods. Limit alcohol intake to no more than 1 drink a day for non women and 2 drinks a day for men. One drink equals 12 oz of beer, 5 oz of wine, or 1 oz of hard liquor. Reading food labels Check food labels for: ?Trans fats, partially hydrogenated oils, or high amounts of saturated fat. Avoid foods that contain saturated fat and trans fat. ?The amount of cholesterol in each serving. Try to eat no more than 200 mg of cholesterol each day. ?The amount of fiber in each serving. Try to eat at least 20 30 g of fiber each day. Choose foods with healthy fats, such as: ?Monounsaturated and polyunsaturated fats. These include olive and canola oil, flaxseeds, walnuts, almonds, and seeds. ?Orwell-3 fats. These are found in foods such as salmon, mackerel, sardines, tuna, flaxseed oil, andground flaxseeds. Choose grain products that have whole grains. Look for the word whole as the first word in the ingredient list. Cooking Cook foods using methods other than frying. Baking, boiling, grilling, and broiling are some healthy options. Eat more home-cooked food and less restaurant, buffet, and fast food. Avoid cooking using saturated fats. ?Animal sources of saturated fats include meats, butter, and cream. ?Plant sources of saturated fats include palm oil, palm kernel oil, and coconut oil. Meal planning At meals, imagine dividing your plate into fourths: ?Fill one-half of your plate with vegetables and green salads. ?Fill one-fourth of your plate with whole grains. ?Fill one-fourth of your plate with lean protein foods. Eat fish that is high in omega-3 fats at least two times a week. Eat more foods that contain fiber, such as whole grains, beans, apples, broccoli, carrots, peas, and barley. These foods help promote healthy cholesterol levels in the blood. Recommended foods Grains Whole grains, such as whole wheat or whole grain breads, crackers, cereals, and pasta. Unsweetened oatmeal, bulgur, barley, quinoa, or brown rice. [place] or whole wheat flour tortillas. Vegetables Fresh or frozen vegetables (raw, steamed, roasted, or grilled). Green salads. Fruits All fresh, canned (in natural juice), or frozen fruits. Meats and other protein foods Ground beef (85% or leaner), grass-fed beef, or beef trimmed of fat. Skinless chicken or turkey. Ground chicken or turkey. Pork trimmed of fat. All fish and seafood. Egg whites. Dried beans, peas, orlentils. Unsalted nuts or seeds. Unsalted canned beans. Natural nut butters without added sugar andoil. Dairy Low-fat or nonfat dairy products, such as skim or 1% milk, 2% or reduced-fat cheeses, low-fat and fat-free ricotta or cottage cheese, or plain low-fat and nonfat yogurt. Fats and oils Tub margarine without trans fats. Light or reduced-fat mayonnaise and salad dressings. Avocado. [place], canola, sesame, or safflower oils. The items listed above may not be a complete list of recommended foods or beverages. Contact your dietitian for more options. Foods to avoid Grains White bread. White pasta. White rice. Cornbread. Bagels, pastries, and croissants. Crackers and snack foods that contain trans fat and hydrogenated oils. Vegetables Vegetables cooked in cheese, cream, or butter sauce. Fried vegetables. Fruits Canned fruit in heavy syrup. Fruit in cream or butter sauce. Fried fruit. Meats and other protein foods Fatty cuts of meat. Ribs, chicken wings, rapp, sausage, bologna, salami, chitterlings, fatback, hot dogs, bratwurst, and packaged lunch meats. Liver and organ meats. Whole eggs and egg yolks. Chicken and turkey with skin. Fried meat. Dairy Whole or 2% milk, cream, araz-voy-drps, and cream cheese. Whole milk cheeses. Whole-fat or sweetened yogurt. Full-fat cheeses. Nondairy creamers and whipped toppings. Processed cheese, cheese spreads, and cheese curds. Beverages Alcohol. Sugar-sweetened drinks such as sodas, lemonade, and fruit drinks. Fats and oils Butter, stick margarine, lard, shortening, ghee, or rapp fat. Coconut, palm kernel, and palm oils. Sweets and desserts [place] syrup, sugars, honey, and molasses. Candy. Jam and jelly. Syrup. Sweetened cereals. Cookies, pies, cakes, donuts, muffins, and ice cream. The items listed above may not be a complete list of foods and beverages to avoid. Contact your dietitian for more information. Summary Your body needs fat and cholesterol for basic functions. However, eating too much of these things can be harmful to your health. Work with your health care provider and dietitian to follow a diet low in fat and cholesterol. Doing this may help lower your risk for heart disease and other conditions. Choose healthy fats, such as monounsaturated and polyunsaturated fats, and foods high in omega-3 fatty acids. Eat fiber-rich foods, such as whole grains, beans, peas, fruits, and vegetables. Limit or avoid alcohol, fried foods, and foods high in saturated fats, partially hydrogenated oils,and sugar. This information is not intended to replace advice given to you by your health care provider. Make sure you discuss any questions you have with your health care provider. Document Released: 10/16/2006 Document Revised: 09/28/2018 Document Reviewed: 07/03/2018 [employer] Patient Education 2020 [employer]. 12/30/2022 07:06:24 Exercising to Lose Weight Exercising to Lose Weight Exercise is structured, repetitive physical activity to improve fitness and health. Getting regularexercise is important for everyone. It is especially important if you are overweight. Being overweight increases your risk of heart disease, stroke, diabetes, high blood pressure, and several types of cancer. Reducing your calorie intake and exercising can help you lose weight. Exercise is usually categorized as moderate or vigorous intensity. To lose weight, most people needto do a certain amount of moderate-intensity or vigorous-intensity exercise each week. Moderate-intensity exercise Moderate-intensity exercise is any activity that gets you moving enough to burn at least three times more energy (calories) than if you were sitting. Examples of moderate exercise include: Walking a mile in 15 minutes. Doing light yard work. Biking at an easy pace. Most people should get at least 150 minutes (2 hours and 30 minutes) a week of moderate-intensity exercise to maintain their body weight. Vigorous-intensity exercise Vigorous-intensity exercise is any activity that gets you moving enough to burn at least six times more calories than if you were sitting. When you exercise at this intensity, you should be working hard enough that you are not able to carry on a conversation. Examples of vigorous exercise include: Running. Playing a team sport, such as football, basketball, and soccer. Jumping rope. Most people should get at least 75 minutes (1 hour and 15 minutes) a week of vigorous-intensity exercise to maintain their body weight. How can exercise affect me? When you exercise enough to burn more calories than you eat, you lose weight. Exercise also reducesbody fat and builds muscle. The more muscle you have, the more calories you burn. Exercise also: Improves mood. Reduces stress and tension. Improves your overall fitness, flexibility, and endurance. Increases bone strength. The amount of exercise you need to lose weight depends on: Your age. The type of exercise. Any health conditions you have. Your overall physical ability. Talk to your health care provider about how much exercise you need and what types of activities aresafe for you. What actions can I take to lose weight? Nutrition Make changes to your diet as told by your health care provider or diet and food and nutrition professor (dietitian). This may include: ?Eating fewer calories. ?Eating more protein. ?Eating less unhealthy fats. ?Eating a diet that includes fresh fruits and vegetables, whole grains, low-fat dairy products, andlean protein. ?Avoiding foods with added fat, salt, and sugar. Drink plenty of water while you exercise to prevent dehydration or heat stroke. Activity Choose an activity that you enjoy and set realistic goals. Your health care provider can help you make an exercise plan that works for you. Exercise at a moderate or vigorous intensity most days of the week. ?The intensity of exercise may vary from person to person. You can tell how intense a workout is for you by paying attention to your breathing and heartbeat. Most people will notice their breathing and heartbeat get faster with more intense exercise. Do resistance training twice each week, such as: ?Push-ups. ?Sit-ups. ?Lifting weights. ?Using resistance bands. Getting short amounts of exercise can be just as helpful as long structured periods of exercise. Ifyou have trouble finding time to exercise, try to include exercise in your daily routine. ?Get up, stretch, and walk around every 30 minutes throughout the day. ?Go for a walk during your lunch break. ?Park your car farther away from your destination. ?If you take public transportation, get off one stop early and walk the rest of the way. ?Make phone calls while standing up and walking around. ?Take the stairs instead of elevators or escalators. Wear comfortable clothes and shoes with good support. Do not exercise so much that you hurt yourself, feel dizzy, or get very short of breath. Where to find more information [place] Department of Health and Human Services: www.hhs.gov Centers for Disease Control and Prevention (CDC): www.cdc.gov Contact a health care provider: Before starting a new exercise program. If you have questions or concerns about your weight. If you have a medical problem that keeps you from exercising. Get help right away if you have any of the following while exercising: Injury. Dizziness. Difficulty breathing or shortness of breath that does not go away when you stop exercising. Chest pain. Rapid heartbeat. Summary Being overweight increases your risk of heart disease, stroke, diabetes, high blood pressure, and several types of cancer. Losing weight happens when you burn more calories than you eat. Reducing the amount of calories you eat in addition to getting regular moderate or vigorous exercise each week helps you lose weight. This information is not intended to replace advice given to you by your health care provider. Make sure you discuss any questions you have with your health care provider. Document Released: 11/18/2011 Document Revised: 10/29/2018 Document Reviewed: 10/29/2018 [employer] Patient Education 2019 [employer]. Follow Up Care 05/06/2022 17:43:08 With:THADDEUS DEUTSCH, JORDI Piedra Address: When:Within 6 Month(s) [facility] Medicine [facility] 01-30-2023 Hospital Discharge instructions Patient Education 11/28/2022 16:14:43 Dental Pain, Mics-in-Pgdq Dental Pain Dental pain may be caused by many things, including: Tooth decay (cavities or caries). Infection. The inner part of the tooth being filled with pus (abscess). Injury. Sometimes the cause of pain is unknown. Your pain can vary. It may be mild or severe. You may have it all the time, or it may occur only when you are: Chewing. Exposed to hot or cold temperature. Eating or drinking sugary foods or beverages, such as soda or candy. Follow these instructions at home: Medicines Take hxwj-vel-gzgmjuf and prescription medicines only as told by your doctor. If you were prescribed an antibiotic medicine, take it as told by your doctor. Do not stop taking the medicine even if you start to feel better. Eating and drinking Do not eat foods or drinks that cause you pain. These include: ?Very hot or very cold foods or drinks. ?Sweet or sugary foods or drinks. Managing pain and swelling Gargle with a salt-water mixture 3 4 times a day. To make this, dissolve 1 tsp of salt in 1 cup of warm water. If told, put ice on the painful area of your face: ?Put ice in a plastic bag. ?Place a towel between your skin and the bag. ?Leave the ice on for 20 minutes, 2 3 times a day. Brushing your teeth [place] your teeth twice a day using a fluoride toothpaste. Floss your teeth once a day. Use a toothpaste made for sensitive teeth as told by your doctor. Use a soft toothbrush. General instructions Do not apply heat to the outside of your face. Watch your dental pain. Let your doctor know if there are any changes. Keep all follow-up visits as told by your doctor. This is important. Contact a doctor if: Your pain is not relieved by medicines. You have new symptoms. Your symptoms get worse. Get help right away if: You cannot open your mouth. You are having trouble breathing or swallowing. You have a fever. Your face, neck, or jaw is swollen. Summary Dental pain may be caused by many things, including tooth decay, injury, or infection. In some cases, the cause is not known. Your pain may be mild or severe. You may have pain all the time, or you may have it only when you eat or drink. Take otuw-wgu-jyriiqz and prescription medicines only as told by your doctor. Watch your dental pain for any changes. Let your doctor know if symptoms get worse. This information is not intended to replace advice given to you by your health care provider. Make sure you discuss any questions you have with your health care provider. Document Released: 04/03/2009 Document Revised: 02/11/2020 Document Reviewed: 10/29/2018 [employer] Patient Education 2020 [employer]. 11/28/2022 16:14:43 Dental Abscess, Uxli-jd-Yozj Dental Abscess A dental abscess is an area of pus in or around a tooth. It comes from an infection. It can cause pain and other symptoms. Treatment will help with symptoms and prevent the infection from spreading. Follow these instructions at home: Medicines Take iiia-lqk-qjjflwx and prescription medicines only as told by your dentist. If you were prescribed an antibiotic medicine, take it as told by your dentist. Do not stop taking it even if you start to feel better. If you were prescribed a gel that has numbing medicine in it, use it exactly as told. Do not drive or use heavy machinery (like a trouble dispatcher) while taking prescription pain medicine. General instructions Rinse out your mouth often with salt water. ?To make salt water, dissolve 1 tsp of salt in 1 cup of warm water. Eat a soft diet while your mouth is healing. Drink enough fluid to keep your urine pale yellow. Do not apply heat to the outside of your mouth. Do not use any products that contain nicotine or tobacco. These include cigarettes and e-cigarettes. If you need help quitting, ask your doctor. Keep all follow-up visits as told by your dentist. This is important. Prevent an abscess [place] your teeth every morning and every night. Use fluoride toothpaste. Floss your teeth each day. Get dental cleanings as often as told by your dentist. Think about getting dental sealant put on teeth that have deep holes (decay). Drink water that has fluoride in it. ?Most tap water has fluoride. ?Check the label on bottled water to see if it has fluoride in it. Drink water instead of sugary drinks. Eat healthy meals and snacks. Wear a mouth guard or face shield when you play sports. Contact a doctor if: Your pain is worse, and medicine does not help. Get help right away if: You have a fever or chills. Your symptoms suddenly get worse. You have a very bad headache. You have problems breathing or swallowing. You have trouble opening your mouth. You have swelling in your neck or close to your eye. Summary A dental abscess is an area of pus in or around a tooth. It is caused by an infection. Treatment will help with symptoms and prevent the infection from spreading. Take tymf-wmn-olpaqgf and prescription medicines only as told by your dentist. To prevent an abscess, take good care of your teeth. [place] your teeth every morning and night. Use floss every day. Get dental cleanings as often as told by your dentist. This information is not intended to replace advice given to you by your health care provider. Make sure you discuss any questions you have with your health care provider. Document Released: 03/01/2016 Document Revised: 02/05/2020 Document Reviewed: 06/18/2018 [employer] Patient Education 2020 [employer]. Follow Up Care 11/28/2022 15:35:07 With:Dental: [facility] [phone] Address:Unknown When:12/01/2022 15:53:12 With:Dental: [facility] [phone] Address:Unknown When:12/01/2022 15:53:12 With:Dental: [facility] [phone] Address:Unknown When:12/01/2022 15:53:11 With:Brooke ELIZALDE Address: [address] [place] [address] [address] [phone] [facility] (1) When:12/01/2022 15:53:04 Comments:Follow-up with your primary care provider in 3 to 5 days. If symptoms worsen, do not improve, or new symptoms arise please report back to emergency department for further evaluation. [facility]07-08-2022 Hospital Discharge instructions Patient Education 05/06/2022 07:54:55 Exercising to Lose Weight Exercising to Lose Weight Exercise is structured, repetitive physical activity to improve fitness and health. Getting regularexercise is important for everyone. It is especially important if you are overweight. Being overweight increases your risk of heart disease, stroke, diabetes, high blood pressure, and several types of cancer. Reducing your calorie intake and exercising can help you lose weight. Exercise is usually categorized as moderate or vigorous intensity. To lose weight, most people needto do a certain amount of moderate-intensity or vigorous-intensity exercise each week. Moderate-intensity exercise Moderate-intensity exercise is any activity that gets you moving enough to burn at least three times more energy (calories) than if you were sitting. Examples of moderate exercise include: Walking a mile in 15 minutes. Doing light yard work. Biking at an easy pace. Most people should get at least 150 minutes (2 hours and 30 minutes) a week of moderate-intensity exercise to maintain their body weight. Vigorous-intensity exercise Vigorous-intensity exercise is any activity that gets you moving enough to burn at least six times more calories than if you were sitting. When you exercise at this intensity, you should be working hard enough that you are not able to carry on a conversation. Examples of vigorous exercise include: Running. Playing a team sport, such as football, basketball, and soccer. Jumping rope. Most people should get at least 75 minutes (1 hour and 15 minutes) a week of vigorous-intensity exercise to maintain their body weight. How can exercise affect me? When you exercise enough to burn more calories than you eat, you lose weight. Exercise also reducesbody fat and builds muscle. The more muscle you have, the more calories you burn. Exercise also: Improves mood. Reduces stress and tension. Improves your overall fitness, flexibility, and endurance. Increases bone strength. The amount of exercise you need to lose weight depends on: Your age. The type of exercise. Any health conditions you have. Your overall physical ability. Talk to your health care provider about how much exercise you need and what types of activities aresafe for you. What actions can I take to lose weight? Nutrition Make changes to your diet as told by your health care provider or diet and food and nutrition professor (dietitian). This may include: ?Eating fewer calories. ?Eating more protein. ?Eating less unhealthy fats. ?Eating a diet that includes fresh fruits and vegetables, whole grains, low-fat dairy products, andlean protein. ?Avoiding foods with added fat, salt, and sugar. Drink plenty of water while you exercise to prevent dehydration or heat stroke. Activity Choose an activity that you enjoy and set realistic goals. Your health care provider can help you make an exercise plan that works for you. Exercise at a moderate or vigorous intensity most days of the week. ?The intensity of exercise may vary from person to person. You can tell how intense a workout is for you by paying attention to your breathing and heartbeat. Most people will notice their breathing and heartbeat get faster with more intense exercise. Do resistance training twice each week, such as: ?Push-ups. ?Sit-ups. ?Lifting weights. ?Using resistance bands. Getting short amounts of exercise can be just as helpful as long structured periods of exercise. Ifyou have trouble finding time to exercise, try to include exercise in your daily routine. ?Get up, stretch, and walk around every 30 minutes throughout the day. ?Go for a walk during your lunch break. ?Park your car farther away from your destination. ?If you take public transportation, get off one stop early and walk the rest of the way. ?Make phone calls while standing up and walking around. ?Take the stairs instead of elevators or escalators. Wear comfortable clothes and shoes with good support. Do not exercise so much that you hurt yourself, feel dizzy, or get very short of breath. Where to find more information [place] Department of Health and Human Services: www.hhs.gov Centers for Disease Control and Prevention (CDC): www.cdc.gov Contact a health care provider: Before starting a new exercise program. If you have questions or concerns about your weight. If you have a medical problem that keeps you from exercising. Get help right away if you have any of the following while exercising: Injury. Dizziness. Difficulty breathing or shortness of breath that does not go away when you stop exercising. Chest pain. Rapid heartbeat. Summary Being overweight increases your risk of heart disease, stroke, diabetes, high blood pressure, and several types of cancer. Losing weight happens when you burn more calories than you eat. Reducing the amount of calories you eat in addition to getting regular moderate or vigorous exercise each week helps you lose weight. This information is not intended to replace advice given to you by your health care provider. Make sure you discuss any questions you have with your health care provider. Document Released: 11/18/2011 Document Revised: 10/29/2018 Document Reviewed: 10/29/2018 [employer] Patient Education 2020 [employer] 05/06/2022 07:54:53 Diabetes Mellitus and Nutrition, Adult Diabetes Mellitus and Nutrition, Adult When you have diabetes (diabetes mellitus), it is very important to have healthy eating habits because your blood sugar (glucose) levels are greatly affected by what you eat and drink. Eating healthyfoods in the appropriate amounts, at about the same times every day, can help you: Control your blood glucose. Lower your risk of heart disease. Improve your blood pressure. Reach or maintain a healthy weight. Every person with diabetes is different, and each person has different needs for a meal plan. Your health care provider may recommend that you work with a diet and food and nutrition professor (dietitian) tomake a meal plan that is best for you. Your meal plan may vary depending on factors such as: The calories you need. The medicines you take. Your weight. Your blood glucose, blood pressure, and cholesterol levels. Your activity level. Other health conditions you have, such as heart or kidney disease. How do carbohydrates affect me? Carbohydrates, also called carbs, affect your blood glucose level more than any other type of food.Eating carbs naturally raises the amount of glucose in your blood. Carb counting is a method for keeping track of how many carbs you eat. Counting carbs is important to keep your blood glucose at a healthy level, especially if you use insulin or take certain oral diabetes medicines. It is important to know how many carbs you can safely have in each meal. This is different for every person. Your dietitian can help you calculate how many carbs you should have at each meal and for each snack. Foods that contain carbs include: Bread, cereal, rice, pasta, and crackers. Potatoes and corn. Peas, beans, and lentils. Milk and yogurt. Fruit and juice. Desserts, such as cakes, cookies, ice cream, and candy. How does alcohol affect me? Alcohol can cause a sudden decrease in blood glucose (hypoglycemia), especially if you use insulin or take certain oral diabetes medicines. Hypoglycemia can be a life-threatening condition. Symptoms of hypoglycemia (sleepiness, dizziness, and confusion) are similar to symptoms of having too much alcohol. If your health care provider says that alcohol is safe for you, follow these guidelines: Limit alcohol intake to no more than 1 drink per day for non women and 2 drinks per day formen. One drink equals 12 oz of beer, 5 oz of wine, or 1 oz of hard liquor. Do not drink on an empty stomach. Keep yourself hydrated with water, diet soda, or unsweetened iced tea. Keep in mind that regular soda, juice, and other mixers may contain a lot of sugar and must be counted as carbs. What are tips for following this plan? Reading food labels Start by checking the serving size on the Nutrition Facts label of packaged foods and drinks. Theamount of calories, carbs, fats, and other nutrients listed on the label is based on one serving ofthe item. Many items contain more than one serving per package. Check the total grams (g) of carbs in one serving. You can calculate the number of servings of carbs in one serving by dividing the total carbs by 15. For example, if a food has 30 g of total carbs, it would be equal to 2 servings of carbs. Check the number of grams (g) of saturated and trans fats in one serving. Choose foods that have low or no amount of these fats. Check the number of milligrams (mg) of salt (sodium) in one serving. Most people should limit totalsodium intake to less than 2,300 mg per day. Always check the nutrition information of foods labeled as low-fat or nonfat . These foods may be higher in added sugar or refined carbs and should be avoided. Talk to your dietitian to identify your daily goals for nutrients listed on the label. Shopping Avoid buying canned, premade, or processed foods. These foods tend to be high in fat, sodium, and added sugar. Shop around the outside edge of the grocery store. This includes fresh fruits and vegetables, bulk grains, fresh meats, and fresh dairy. Cooking Use low-heat cooking methods, such as baking, instead of high-heat cooking methods like deep frying. Cook using healthy oils, such as olive, canola, or sunflower oil. Avoid cooking with butter, cream, or high-fat meats. Meal planning Eat meals and snacks regularly, preferably at the same times every day. Avoid going long periods oftime without eating. Eat foods high in fiber, such as fresh fruits, vegetables, beans, and whole grains. Talk to your dietitian about how many servings of carbs you can eat at each meal. Eat 4 6 ounces (oz) of lean protein each day, such as lean meat, chicken, fish, eggs, or tofu. One oz of lean protein is equal to: ?1 oz of meat, chicken, or fish. ?1 egg. ? cup of tofu. Eat some foods each day that contain healthy fats, such as avocado, nuts, seeds, and fish. Lifestyle Check your blood glucose regularly. Exercise regularly as told by your health care provider. This may include: ?150 minutes of moderate-intensity or vigorous-intensity exercise each week. This could be brisk walking, biking, or water aerobics. ?Stretching and doing strength exercises, such as yoga or weightlifting, at least 2 times a week. Take medicines as told by your health care provider. Do not use any products that contain nicotine or tobacco, such as cigarettes and e-cigarettes. If you need help quitting, ask your health care provider. Work with a counselor or special education paraeducator to identify strategies to manage stress and any emotional and social challenges. Questions to ask a health care provider Do I need to meet with a special education paraeducator? Do I need to meet with a dietitian? What number can I call if I have questions? When are the best times to check my blood glucose? Where to find more information: [place] [employer]: diabetes.org Academy of Nutrition and Dietetics: www.eatright.org National [place]wing of Diabetes and Digestive and Kidney Diseases (NIH): www.niddk.nih.gov Summary A healthy meal plan will help you control your blood glucose and maintain a healthy lifestyle. Working with a diet and food and nutrition professor (dietitian) can help you make a meal plan that is bestfor you. Keep in mind that carbohydrates (carbs) and alcohol have immediate effects on your blood glucose levels. It is important to count carbs and to use alcohol carefully. This information is not intended to replace advice given to you by your health care provider. Make sure you discuss any questions you have with your health care provider. Document Released: 07/13/2006 Document Revised: 09/28/2018 Document Reviewed: 11/20/2017 [employer] Patient Education 2020 [employer]. Follow Up Care 12/22/2021 10:26:30 With:THADDEUS DEUTSCH, JORDI Piedra Address: When:Within 3 Month(s) [facility] Medicine Sara Zerve 05-31-2022 Evaluation + Plan noteExtracted from: Title:ED Note Author:Foreign Mckeon DO Date:03/01 11/20 Cellulitis, leg (L03.119: Ce llulitis of unspecified part of limb) Leg pain (M79.606: Pain in leg, unspecified) Ordered: acetaminophen-hydrocodone, 1 tab(s), Oral, q6hr for pain for 3 day(s), 10 tab(s), Refill(s) 0, [facility], 170, cm, 03/29/22 10:42:00 EDT, Height/Length Dosing, 127, kg, 03/29/22 10:42:00 EDT, Weight Dosing Peripheral edema (R60.9: Edema, unspecified) Psoriasis (L40.9: Psoriasis, unspecified) Orders: doxycycline, 100 mg = 1 tab(s), Oral, BID, X 7 day(s), # 14 tab(s), Refills(s) 0, Pharmacy: [facility], 170, cm, 03/29/22 10:42:00 EDT, Height/Length Dosing, 127, kg, 03/29/22 10:42:00 EDT, Weight Dosing Automated Diff B-Type Natriuretic Peptide CBC w/ Auto Diff Comprehensive Metabolic Panel eGFR PT & PTT US LE Venous Duplex Right Future Appointments Appointment Date:04/06/2022 01:00:00 PM Scheduled Provider: Location:[facility] Appointment Type: Medicare Wellness Subsequent Appointment Date:05/06/2022 04:40:00 PM Scheduled Provider:Brooke ELIZALDE MD Location:[facility] Appointment Type: Open Future Scheduled Tests Laboratory* HgbA1c 06/09/21 [facility]05-31-2022 Hospital Discharge instructions Follow Up Care 03/29/2022 10:38:00 With:DARA OCAMPO Address: [address], [address] [place] [address]- Business (1) When:04/01/2022 12:13:42 With:Brooke ELIZALDE Address: [address] [place], [place] [address] [place] [address]- Business (1) When:Within 3 Day(s) [facility]03-01-2022 Evaluation note* Encounter Date Diagnosis Assessment Notes Treatment Notes Treatment Clinical Notes Dec, Elevated liver function tests (ICD-10 - R79.89) PATIENT HAD PREVIOUS METHOTREXATE USE. PATIENT ADVISED WILL ORDER SOME LABS AND IMAGING. [employer] Other Evaluation + Plan note Future Appointments Appointment Date:04/06/2022 01:00:00 PM Scheduled Provider: Location:[facility] Appointment Type: Medicare Wellness Subsequent Appointment Date:05/06/2022 04:40:00 PM Scheduled Provider:Brooke ELIZALDE MD Location:[facility] Appointment Type: Open Future Scheduled Tests Laboratory* HgbA[facility]c [facility]ments Appointment Date:08/19/2022 02:20:00 PM Scheduled Provider:Brooke ELIZALDE MD Location:[facility] Appointment Type: Open Appointment Date:04/19/2023 01:00:00 PM Scheduled Provider: Location:[facility] Appointment Type:FM Medicare Wellness Subsequent Future Scheduled Tests Laboratory* HgbA1c 05/06/22 * HgbA1c 06/09/21 * Lipid Panel 05/06/22 * Thyroid Stimulating Hormone 05/06/22 Radiology* CT Chest, Low Dose Screening 05/06/22 * BD Bone Density DEXA 05/06/22 * MA Mamm Screen w/CAD if perf and 3D Ahmet 05/06/22 * MA Mamm Screen w/CAD if perf and 3D Ahmet 04/06/22 [facility] [place] Evaluation + Plan note Future Appointments Appointment Date:12/30/2022 01:40:00 PM Scheduled Provider:Brooke ELIZALDE MD Location:[facility] Appointment Type: Open Appointment Date:04/19/2023 01:00:00 PM Scheduled Provider: Location:[facility] Appointment Type:FM Medicare Wellness Subsequent Diagnostic Tests Pending * Quantiferon-TB Plus (Client Incubated) 10/14/22 Future Scheduled Tests Radiology* CT Chest, Low Dose Screening 05/06/22 * BD Bone Density DEXA 05/06/22 * MA Mamm Screen w/CAD if perf and 3D Ahmet 05/06/22 * MA Mamm Screen w/CAD if perf and 3D Ahmet 04[facility]06[facility]22 [facility]ments Appointment Date:12/30/2022 01:40:00 PM Scheduled Provider:Brooke ELIZALDE MD Location:[facility] Appointment Type:FM Open Appointment Date:04/19/2023 01:00:00 PM Scheduled Provider: Location:[facility] Appointment Type: Medicare Wellness Subsequent Future Scheduled Tests Radiology* CT Chest, Low Dose Screening 05/06/22 * BD Bone Density DEXA 05/06/22 * MA Mamm Screen w/CAD if perf and 3D Ahmet 05/06/22 * MA Mamm Screen w/CAD if perf and 3D Ahmet 04/06/22 [facility]ments Appointment Date:01/02/2023 02:15:00 PM [facility]uled [facility] Type:MA Screen (FT) Appointment Date:01/02/2023 02:30:00 PM Scheduled [facility] Type:BD Bone Density (FT) Appointment Date:01/10/2023 01:00:00 PM Scheduled [facility] Type:CT Chest, Low Dose Screening (FT) Appointment Date:04/19/2023 01:00:00 PM Scheduled Provider: Location:[facility] Appointment Type: Medicare Wellness Subsequent Appointment Date:07/25/2023 01:00:00 PM Scheduled Provider:Brooke ELIZALDE MD Location:[facility] Appointment Type: Open Future Scheduled Tests Radiology* CT Chest, Low Dose Screening 01/10/23 * CT Abdomen/Pelvis w/ Contrast 12/30/22 * BD Bone Density DEXA 01/02/23 * MA Mamm Screen w/CAD if perf and 3D Ahmet 01/02/23 * MA Mamm Screen w/CAD if perf and 3D Ahmet 04/06/22 [facility] [place] Evaluation + Plan note Future Appointments Appointment Date:01/10/2023 01:00:00 PM Scheduled Provider: [facility] Type:CT Chest, Low Dose Screening (FT) Appointment Date:04/19/2023 01:00:00 PM Scheduled Provider: Location:[facility] Appointment Type: Medicare Wellness Subsequent Appointment Date:07/25/2023 01:00:00 PM Scheduled Provider:Brooke ELIZALDE MD Location:[facility] Appointment Type: Open Future Scheduled Tests Radiology* CT Chest, Low Dose Screening 01/10/23 * CT Abdomen/Pelvis w/ Contrast 12/30/22 * MA Mamm Screen w/CAD if perf and 3D Ahmet 04/06/22 [facility]ments Appointment Date:01/23/2023 10:00:00 AM Scheduled Provider: [facility] Type:CT Abdomen/Pelvis Combo () Appointment Date:01/23/2023 11:00:00 AM Scheduled Provider[facility] Type:EMG Bilateral Lower Extremity Appointment Date:01/27/2023 11:00:00 AM Scheduled Provider: [facility] Type:EMG Bilateral Upper Extremity Appointment Date:04/19/2023 01:00:00 PM Scheduled Provider: Location:[facility] Appointment Type: Medicare Wellness Subsequent Appointment Date:08/04/2023 01:00:00 PM Scheduled Provider:Brooke ELIZALDE MD Location:[facility] Appointment Type: Open Future Scheduled Tests Radiology* CT Abdomen/Pelvis w/ Contrast 01/23/23 * MA Mamm Screen w/CAD if perf and 3D Ahmet 04/06/22 [facility]ments Appointment Date:01/27/2023 11:00:00 AM Scheduled Provider[facility] Type:EMG Bilateral Upper Extremity Appointment Date:04/19/2023 01:00:00 PM Scheduled Provider: Location:[facility] Appointment Type: Medicare Wellness Subsequent Appointment Date:08/04/2023 01:00:00 PM Scheduled Provider:Brooke ELIZALDE MD Location:[facility] Appointment Type: Open Future Scheduled Tests Radiology* MA Mamm Screen w/CAD if perf and 3D Ahmet 04/06/22 [facility] App[facility]ments Appointment Date:04/19/2023 01:00:00 PM Scheduled Provider: Location:[facility] Appointment Type: Medicare Wellness Subsequent Appointment Date:08/04/2023 01:00:00 PM Scheduled Provider:Brooke ELIZALDE MD Location:[facility] Appointment Type: Open Future Scheduled Tests Radiology* MA Mamm Screen w/CAD if perf and 3D Ahmet 04/06/22 [facility]ments Appointment Date:11/03/2023 01:20:00 PM Scheduled Provider:Brooke ELIZALDE MD Location:[facility] Appointment Type: Open Appointment Date:04/17/2024 01:00:00 PM Scheduled Provider: Location:[facility] Appointment Type: Medicare Wellness Subsequent Diagnostic Tests Pending * Quantiferon-TB Plus (Client Incubated) 10/10/23 [facility]ments Appointment Date:11/03/2023 01:20:00 PM Scheduled Provider:Brooke ELIZALDE MD Location:[facility] Appointment Type: Open Appointment Date:04/17/2024 01:00:00 PM Scheduled Provider: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
== END 2024-05-14 12:45 | disposition home or self-care (01) ==
LOC: PM 12:45
PROVIDERS: PCP Family Medicine; Visit Provider Anesthesiology Pain Medicine
DX: M48.062 Spinal stenosis, lumbar region with neurogenic claudication (principal)
CPT/HCPCS: G0463